=== PATIENT | male | born 1950 | race Caucasian/White ===

== ENCOUNTER → 2022-08-20 | Outpatient (CLI) | payer MEDICARE, OTHER, SELFPAY ==
[2022-08-20 17:45] LABS: CRP < 2.90 mg/L (0.0-3.0)
[2022-08-20 17:55] LABS: Vitamin B12 755 pg/mL (211-911); Vitamin D,25 Hydroxy 46.3 ng/mL
[2022-08-20 19:27] LABS: Erythrocyte Sedimentation Rate 6 mm/hr (0-20)
[2022-08-24 16:09] LABS: Albumin 3.6 g/dL (2.9-4.4); Alpha-1-Globulins 0.2 g/dL (0.0-0.4); Alpha-2-Globulins 0.7 g/dL (0.4-1.0); Cytoplasmic Ab (C-ANCA) <1:20 titer (Neg:<1:20); Gamma Globulin 1.3 g/dL (0.4-1.8); Immunoglobulin A 211 mg/dL (61-437); Immunoglobulin E 6 IU/mL (6-495); Immunoglobulin G 1146 mg/dL (603-1613); Immunoglobulin M 113 mg/dL (20-172); PROEL- TOTAL PROTEIN 6.8 g/dL (6.0-8.5)
[2022-08-24 17:07] LABS: Endomysial Antibody IgA Negative (Negative)
[2022-08-25 11:09] LABS: Beef <0.10 kU/L (Class 0); Clam <0.10 kU/L (Class 0); Codfish <0.10 kU/L (Class 0); Corn <0.10 kU/L (Class 0); Egg, White <0.10 kU/L (Class 0); Egg, Whole <0.10 kU/L (Class 0); Milk (Cow) <0.10 kU/L (Class 0); Peanut <0.10 kU/L (Class 0); Pork <0.10 kU/L (Class 0); SCALLOP <0.10 kU/L (Class 0); SESAME SEED <0.10 kU/L (Class 0); Shrimp <0.10 kU/L (Class 0); Soybean <0.10 kU/L (Class 0); Walnut, (Food) <0.10 kU/L (Class 0); Wheat <0.10 kU/L (Class 0)
[2022-08-25 11:12] LABS: Immunoglobulin A 219 mg/dL (61-437); Perinuclear Ab (P-ANCA) <1:20 titer (Neg:<1:20); t-Transglutaminase IgA <2 U/mL (0-3)
[2022-08-25 11:18] LABS: Chocolate <0.10 kU/L (Class 0)
== END | disposition home or self-care (01) ==
PROVIDERS: PCP Internal Medicine; Referring Provider Internal Medicine Gastroenterology; Visit Provider Internal Medicine Gastroenterology
DX: R19.5 Other fecal abnormalities (principal); K21.9 Gastro-esophageal reflux disease without esophagitis; E55.9 Vitamin D deficiency, unspecified
CPT/HCPCS: 36415; 82306; 82607; 82784; 82785; 83516; 84165; 85652; 86003; 86005; 86140; 86255; 86256; 86334

== ENCOUNTER → 2022-08-24 | Outpatient (CLI) | payer MEDICARE, OTHER, SELFPAY ==
[2022-08-29 14:15] LABS: Calprotectin, Stool 19 ug/g (0-120); Fats, Neutral Normal (.); Fats, Total Increased (.)
[2022-09-01 14:36] LABS: Pancreatic Elastase, Fecal 268 (>200)
== END | disposition home or self-care (01) ==
LOC: LABSPEC 12:34
PROVIDERS: PCP Internal Medicine; Referring Provider Internal Medicine Gastroenterology; Visit Provider Internal Medicine Gastroenterology
DX: R19.5 Other fecal abnormalities (principal); K58.9 Irritable bowel syndrome, unspecified; K21.9 Gastro-esophageal reflux disease without esophagitis
CPT/HCPCS: 82274; 82653; 82705; 83630; 83993; 87177; 87209; 87329; 87506

== ENCOUNTER → 2022-09-07 | Outpatient (CLI) | payer MEDICARE, OTHER, SELFPAY ==
--- NOTE | 2022-09-07 11:23 | NM_ITS ---
CLINICAL: 72-year-old male with history of gastroparesis. SEMI-SOLID PHASE 99m Tc SULFUR COLLOID GASTRIC EMPTYING STUDY COMPARISON: None available FINDINGS: The patient was administered 1.1 mCi of 99m Tc sulfur colloid mixed with oatmeal and consumed per os. Image acquisitions in the anterior-posterior projections were obtained for [dv] minutes. There is prompt visualization of the stomach. There is no gastroesophageal reflux identified. The T ? linear fit was calculated to be 31.71 minutes, (Normal: 12-56 minutes). NM/Gastric Emptying Study IMPRESSION: 1. NORMAL 99m Tc sulfur colloid semi-solid phase (oatmeal) gastric emptying imaging examination. A. There is normal and preserved semi-solid phase gastric emptying compared to normal controls. (Yaquelin et al, J Nucl Med Tech 38: 186, 2010). Electronically Signed: John Rojo, at 21:14 EDT ,
== END | disposition home or self-care (01) ==
LOC: NM 11:22
PROVIDERS: PCP Internal Medicine; Referring Provider Internal Medicine Gastroenterology; Visit Provider Internal Medicine Gastroenterology
DX: K31.84 Gastroparesis (principal); R19.5 Other fecal abnormalities; K21.9 Gastro-esophageal reflux disease without esophagitis
CPT/HCPCS: 78264; A9541

== ENCOUNTER 2023-06-16 05:52 | Day surgery (SDC) | payer MEDICARE, OTHER, SELFPAY ==
--- OUTSIDE RECORDS SUMMARY | 2023-06-16 05:56 | XMS RPT_ITS | CCD ---
Author Name Unknown Address [address] [place] [address] Organization [facility] Care Team Providers Care Lockstitch Topstitcher Name Role Phone SARINA YARBROUGH, DR ZHAO Primary Care Physician Sarina YARBROUGH, Cece Primary Care Provider SARINA YARBROUGH, DR ZHAO Primary Care Physician SARINA YARBROUGH, DR ZHAO Primary Care Physician [phone] SARINA YARBROUGH, DR ZHAO Primary Care Unavailable MARLENA YARBROUGH, DR ZENG Attending Tracee ASHER MD, DR ZHAO Primary Care Unavailable BRITTNEY GARNER Attending Unavailable SARINA YARBROUGH, DR ZHAO Primary Care Unavailable [facility] DRIVER'S LICENSE EXAMINERNASCAR DRIVER, ZARA Attending Baljit ASHER MD, DR ALYROS Primary Care Unavailable [facility] DRIVER'S LICENSE EXAMINER-NASCAR DRIVER, ZARA Attending Baljit ASHER MD, DR ZHAO Primary Care Unavailable MARLENA YARBROUGH, DR ZENG Attending Tracee ASHER MD, DR ZHAO Primary Care Unavailable MARLENA YARBROUGH, DR ZENG Attending Tracee ASHER MD, DR ALYROS Primary Care Unavailable MARLENA YARBROUGH, DR ZENG Attending Tracee ASHER MD, DR ZHAO Primary Care Unavailable BRITTNEY GARNER Attending Unavailable SARINA YARBROUGH, DR ZHAO Primary Care Unavailable BRITTNEY GARNER Attending Unavailable SARINA YARBROUGH, DR ZHAO Primary Care Unavailable MARLENA YARBROUGH, DR ZENG Attending Tracee ASHER MD, DR ZHAO Primary Care Unavailable BRITTNEY GARNER Attending Unavailable SARINA YARBROUGH, DR ZHAO Primary Care Unavailable MARLENA YARBROUGH, DR ZENG Attending Tracee ASHER MD, DR ZHAO Primary Care Unavailable MARLENA YARBROUGH, DR ZENG Attending Unavailjass ASHER MD, DR ZHAO Primary Care Unavailable JOHN YARBROUGH, BOBBY [employer] Consulting Unavailab rufina MENDIOLA MD, DR ZENG Attending Unavailjass BERGER MD, MALCOM Consulting Unavailable MARLENA YARBROUGH, DR ZENG Consulting Unavailjass ASHER MD, DR ZHAO Primary Care Unavailable MARLENA YARBROUGH, DR ZENG Attending Unavailjass ASHER MD, DR ZHAO Primary Care Unavailable BRITTNEY GARNER Attending Unavailable SARINA YARBROUGH, BUTTESS Primary Care Unavailable MARLENA YARBROUGH, DR ZENG Attending Unavailjass ASHER MD, DR ZHAO Primary Care Unavailable BRITTNEY GARNER Attending Unavailable SARINA, CECE YARBROUGH Attending Unavailable LATYVETTE, CECE YARBROUGH Admitting Unavailable LATYVETTE, CECE YARBROUGH Primary Care Unavailable LATOULian, CECE YARBROUGH Consulting Unavailable PROVIDER, UNKNOWN Consulting Unavailable PROVIDER, UNKNOWN Consulting Unavailable PROVIDER, UNKNOWN Consulting Unavailable LATOULian, CECE YARBROUGH Consulting Unavailable LATOULian, CECE YARBROUGH Attending Unavailable LATOULian, CECE YARBROUGH Admitting Unavailable LATYVETTE, CECE YARBROUGH Primary Care Unavailable PROVIDER, UNKNOWN Consulting Unavailable PROVIDER, UNKNOWN Consulting Unavailable PROVIDER, UNKNOWN Consulting Unavailable LATYVETTE, CECE YARBROUGH Consulting Unavailable LATOULian, CECE YARBROUGH Attending Unavailable LATOULian, CECE YARBROUGH Admitting Unavailable LATYVETTE, CECE YARBROUGH Primary Care Unavailable PROVIDER, UNKNOWN Consulting Unavailable PROVIDER, UNKNOWN Consulting Unavailable PROVIDER, UNKNOWN Consulting Unavailable Allergies Allergy Classification Reported Allergen(s) Allergy Type Date of Onset Reaction(s) Facility (16 sources) Sulfonamides (Antibiotic); Translations: [sulfa drugs] Drug allergy Difficulty breathing (finding), Eruption of skin (disorder), Weal (disorder) [facility] (1 source) Sulfonamides (Antibiotic) Drug Allergy 5 [facility] (13 sources) Chlorhexidine; Translations: [chlorhexidine topical] Drug Allergy Eruption of skin (disorder) [facility] (1 source) Sulfonamides (Antibiotic) Drug allergy (disorder) [facility] Repository Medications Current Medications Medication Drug Class(es) Dates Sig (Normalized) Sig (Original) amylase 814710 unt / lipase 27470 unt / protease [id number] unt delayed release oral capsule (8 sources) Start: 02-01-2023 Creon 36,000 units oral delayed release capsule 1 cap(s), Oral, TIDM, 0 Refill(s) Start Date: 02/01/23 Status: Ordered famotidine 20 mg oral tablet (13 sources) Histamine-2 Receptor Antagonist Start: 11-03-2021 famotidine 20 mg oral tablet Dose : 20 mg = 1 tab(s), Oral, qDay, PRN Indigestion Start Date: 11/03/21 Status: Ordered Fish Oils (16 sources) Start: 09-30-2020 Fish Oil 1200 mg oral capsule Dose : 1,200 mg = 1 cap(s), Oral, qDay, 0 Refill(s) Start Date: 09/30/20 Status: Ordered Completed/Discontinued Medications Medication Drug Class(es) Dates Sig (Normalized) Sig (Original) ALPRAZolam 0.25 mg oral tablet (16 sources) Benzodiazepine Start: 02-01-2023 ALPRAZolam 0.25 mg oral tablet Dose : 0.125 mg = 0.5 tab(s), Oral, BID, PRN for anxiety, 0 Refill(s), 100.4 Start Date: 02/01/23 Status: Ordered Problems Active Problems Problem Classification Problem Date Documented Date Episodic/Chronic Abdominal hernia (8 sources) Umbilical hernia; Translations: [Umbilical hernia without obstruction or gangrene] Onset: 11-20-2014 09-30-2020 Episodic Anxiety disorders (17 sources) Panic disorder; Translations: [Panic disorder [episodic paroxysmal anxiety]] Onset: 09-04-2022 09-30-2020 Chronic Cancer of prostate (16 sources) Malignant tumor of prostate; Translations: [Malignant neoplasm of prostate] Onset: 09-04-2022 11-21-2021 Chronic Disorders of lipid metabolism (19 sources) Hypertriglyceridemia; Translations: [Hyperlipidemia, unspecified] Onset: 09-04-2022 09-30-2020 Chronic Esophageal disorders (16 sources) Gastroesophageal reflux disease 09-30-2020 Chronic Essential hypertension (19 sources) Hypertensive disorder; Translations: [Essential (primary) hypertension] Onset: 09-04-2022 09-30-2020 Chronic Genitourinary symptoms and ill-defined conditions (6 sources) Urinary symptoms ; Translations: [Unspecified symptoms and signs involving the genitourinary system] Onset: 03-08-2023 03-08-2023 Episodic Inflammatory conditions of male genital organs (1 source) Orchitis and epididymitis 05-04-2023 Episodic Mood disorders (1 source) Other recurrent depressive disorders; Translations: [Other recurrent depressive disorders] Onset: 09-04-2022 Chronic Occlusion or stenosis of precerebral arteries (1 source) Occlusion and stenosis of bilateral carotid arteries; Translations: [Occlusion and stenosis of bilateral carotid arteries] Onset: 09-04-2022 Chronic Other circulatory disease (16 sources) Carotid bruit 09-30-2020 Episodic Other male genital disorders (1 source) Hemospermia 04-08-2023 Episodic Other male genital disorders (1 source) Pain in testicle 04-08-2023 Episodic Other non-traumatic joint disorders (16 sources) Polyarthropathy 09-30-2020 Chronic Other nutritional; endocrine; and metabolic disorders (16 sources) Obesity 09-30-2020 Chronic Other screening for suspected conditions (not mental disorders or infectious disease) (6 sources) Raised prostate specific antigen; Translations: [Patient encounter status] Onset: 11-20-2014 09-29-2020 Episodic Residual codes; unclassified (16 sources) Obstructive sleep apnea syndrome 09-30-2020 Chronic Residual codes; unclassified (1 source) Obstructive sleep apnea (adult) (pediatric); Translations: [Obstructive sleep apnea (adult) (pediatric)] Onset: 09-04-2022 Chronic Residual codes; unclassified (16 sources) Insomnia 09-30-2020 Episodic Past or Other Problems Problem Classification Problem Date Documented Da te Episodic/Chronic Heart valve disorders (17 sources) Cardiac murmur, intensity grade I/; Translations: [Cardiac murmur, unspecified] Onset: 09-04-2022 09-30-2020 Episodic Results Test Name Value Interpretation Reference Range Facil ity Vital Signs Date Time Vital Sign Value Performing Clinician Faci lity 02-10-2023 18:25-0400 Body temperature 96.26 [degF] DR KARRI MENDIOLA MD [facility] 02-10-2023 18:25-0400 Diastolic Blood Pressure Non-Invasive [address] KARRI MENDIOLA MD [facility] 02-10-2023 18:25-0400 Heart rate 86 /min DR KARRI MENDIOLA MD [facility] 02-10-2023 18:25-0400 Respiratory rate 16 /min DR KARRI MENDIOLA MD [facility] 02-10-2023 18:25-0400 Systolic Blood Pressure Non-Invasive [address] KARRI MENDIOLA MD [facility] 02-10-2023 17:10-0400 Body temperature 97.52 [degF] DR KARRI MENDIOLA MD [facility] 02-10-2023 17:10-0400 Diastolic Blood Pressure Non-Invasive [address] KARRI MENDIOLA MD [facility] 02-10-2023 17:10-0400 Heart rate 91 /min DR KARRI MENDIOLA MD [facility] 02-10-2023 17:10-0400 Respiratory rate 16 /min DR KARRI MENDIOLA MD [facility] 02-10-2023 17:10-0400 Systolic Blood Pressure Non-Invasive [address] KARRI MENDIOLA MD [facility] 02-10-2023 17:07-0400 Body temperature 97.16 [degF] DR KARRI MENDIOLA MD [facility] 02-10-2023 17:07-0400 Diastolic Blood Pressure Non-Invasive [address] KARRI MENDIOLA MD [facility] 02-10-2023 17:07-0400 Heart rate 93 /min DR KARRI MENDIOLA MD [facility] 02-10-2023 17:07-0400 Mean blood pressure 91 mm[Hg] DR KARRI MENDIOLA MD [facility] 02-10-2023 17:07-0400 Respiratory rate 16 /min DR KARRI MENDIOLA MD [facility] 02-10-2023 17:07-0400 Systolic Blood Pressure Non-Invasive [address] KARRI MENDIOLA MD [facility] 02-10-2023 16:49-0400 Heart rate 89 /min DR KARRI MENDIOLA MD [facility] 02-10-2023 16:49-0400 Mean blood pressure 82 mm[Hg] DR KARRI MENDIOLA MD [facility] 02-10-2023 16:40-0400 Body temperature 97.34 [degF] DR KARRI MENDIOLA MD [facility] 02-10-2023 16:40-0400 Heart rate 83 /min DR KARRI MENDIOLA MD [facility] 02-10-2023 16:40-0400 Mean blood pressure 75 mm[Hg] DR KARRI MENDIOLA MD [facility] 02-10-2023 16:35-0400 Respiratory Rate - Anes 25 br/min DR KARRI MENDIOLA MD [facility] 02-10-2023 16:30-0400 Body temperature 98.13 [degF] DR KARRI MENDIOLA MD [facility] 02-10-2023 16:30-0400 Respiratory Rate - Anes 19 br/min DR KARRI MENDIOLA MD [facility] 02-10-2023 16:25-0400 Body temperature 98.08 [degF] DR KARRI MENDIOLA MD [facility] 02-10-2023 16:25-0400 Respiratory Rate - Anes 13 br/min DR KARRI MENDIOLA MD [facility] 02-10-2023 16:20-0400 Body temperature 97.66 [degF] DR KARRI MENDIOLA MD [facility] 02-10-2023 11:35-0400 Body height 177.[address] KARRI MENDIOLA MD [facility] 02-10-2023 11:35-0400 Body weight 97.[address] KARRI MENDIOLA MD [facility] 02-10-2023 11:35-0400 Heart rate 72 /min DR KARRI MENDIOLA MD [facility] 02-01-2023 11:51-[address] KARRI MENDIOLA MD [facility] 02-01-2023 11:51-[address] KARRI Workman MD [facility] 02-01-2023 11:51-0400 Diastolic Blood Pressure Non-Invasive [address] KARRI MENDIOLA MD [facility] 02-01-2023 11:51-0400 Systolic Blood Pressure Non-Invasive [address] KARRI MENDIOLA MD [facility] 02-01-2023 11:27-[address] KARRI MENDIOLA MD [facility] 02-01-2023 11:27-[address] KARRI Workman MD [facility] 02-01-2023 11:27-0400 Body height [address] KARRI MENDIOLA MD [facility] 02-01-2023 11:27-0400 Body temperature 98.06 [degF] DR KARRI MENDIOLA MD [facility] 02-01-2023 11:27-0400 Body weight 100.[address] KARRI MENDIOLA MD [facility] 02-01-2023 11:27-0400 Diastolic Blood Pressure Non-Invasive [address] KARRI MENDIOLA MD [facility] 02-01-2023 11:27-0400 Heart rate 61 /min DR KARRI MENDIOLA MD [facility] 02-01-2023 11:27-0400 Systolic Blood Pressure Non-Invasive [address] KARRI MENDIOLA MD [facility] 11-13-2021 13:50-0400 Body temperature 97.7 [degF] DR KARRI MENDIOLA MD [facility] 11-13-2021 13:50-0400 Diastolic blood pressure 60 mm[Hg] DR KARRI MENDIOLA MD [facility] 11-13-2021 13:50-0400 Heart rate 78 /min DR KARRI MENDIOLA MD [facility] 11-13-2021 13:50-0400 Respiratory rate 16 /min DR KARRI MENDIOLA MD [facility] 11-13-2021 13:50-0400 Systolic blood pressure 130 mm[Hg] DR KARRI MENDIOLA MD [facility] 11-13-2021 12:30-0400 Body temperature 96.44 [degF] DR KRARI MENDIOLA MD [facility] 11-13-2021 12:30-0400 Diastolic blood pressure 75 mm[Hg] DR KARRI MENDIOLA MD [facility] 11-13-2021 12:30-0400 Heart rate 79 /min DR KARRI MENDIOLA MD [facility] 11-13-2021 12:30-0400 Respiratory rate 16 /min DR KARRI MENDIOLA MD [facility] 11-13-2021 12:30-0400 Systolic blood pressure 130 mm[Hg] DR AKRRI MENDIOLA MD [facility] 11-13-2021 12:15-0400 Respiratory rate 16 /min DR KARRI MENDIOLA MD [facility] 11-13-2021 12:11-0400 Diastolic Blood Pressure NBP [address] KARRI MENDIOLA MD [facility] 11-13-2021 12:11-0400 Heart rate 81 /min DR KARRI MENDIOLA MD [facility] 11-13-2021 12:11-0400 Mean blood pressure 76 mm[Hg] DR KARRI MENDIOLA MD [facility] 11-13-2021 12:11-0400 Systolic Blood Pressure NBP [address] KARRI MENDIOLA MD [facility] 11-13-2021 11:56-0400 Diastolic Blood Pressure NBP [address] KARRI MENDIOLA MD [facility] 11-13-2021 11:56-0400 Heart rate 76 /min DR KARRI MENDIOLA MD [facility] 11-13-2021 11:56-0400 Mean blood pressure 79 mm[Hg] DR KARRI MENDIOLA MD [facility] 11-13-2021 11:56-0400 Systolic Blood Pressure NBP [address] KARRI MENDIOLA MD [facility] 11-13-2021 11:41-0400 Body temperature 96.8 [degF] DR KARRI MENDIOLA MD [facility] 11-13-2021 11:41-0400 Diastolic Blood Pressure NBP [address] KARRI MENDIOLA MD [facility] 11-13-2021 11:41-0400 Heart rate 75 /min DR KARRI MENDIOLA MD [facility] 11-13-2021 11:41-0400 Mean blood pressure 73 mm[Hg] DR KARRI MENDIOLA MD [facility] 11-13-2021 11:41-0400 Systolic Blood Pressure NBP [address] KARRI MENDIOLA MD [facility] 11-13-2021 11:30-0400 Body temperature 97.03 [degF] DR KARRI MENDIOLA MD [facility] 11-13-2021 11:25-0400 Body temperature 97.09 [degF] DR KARRI MENDIOLA MD [facility] 11-13-2021 11:20-0400 Body temperature 97.12 [degF] DR KARRI MENDIOLA MD [facility] 11-13-2021 09:25-0400 Body height 177.[address] KARRI MENDIOLA MD [facility] 11-13-2021 09:25-0400 Body temperature 96.98 [degF] DR KARRI MENDIOLA MD [facility] 11-13-2021 09:25-0400 Body weight 98.[address] KARRI MENDIOLA MD [facility] 11-13-2021 09:25-0400 Diastolic blood pressure 86 mm[Hg] DR KARRI MENDIOLA MD [facility] 11-13-2021 09:25-0400 Heart rate 74 /min DR KARRI MENDIOLA MD [facility] 11-13-2021 09:25-0400 Mean blood pressure 111 mm[Hg] DR KARRI MENDIOLA MD [facility] 11-13-2021 09:25-0400 Systolic blood pressure 160 mm[Hg] DR KARRI MENDIOLA MD [facility] 11-03-2021 09:33-0400 Body height 176.[address] KARRI MENDIOLA MD [facility] 11-03-2021 09:33-0400 Body temperature 97.7 [degF] DR KARRI MENDIOLA MD [facility] 11-03-2021 09:33-0400 Body weight 102.[address] KARRI MENDIOLA MD [facility] 11-03-2021 09:33-0400 diastolic 80 mm[Hg] DR KARRI MENDIOLA MD [facility] 11-03-2021 09:33-0400 Heart rate 68 /min DR KARRI MENDIOLA MD [facility] 11-03-2021 09:33-0400 systolic 154 mm[Hg] DR KARRI MENDIOLA MD [facility] Encounters Encounter Date Encounter Type Care Provider Facility Start: 05-19-2023 End: 05-19-2023 ambulatory CECE ASHER [facility] Start: 05-04-2023 End: 05-05-[address] CECE ASHER MD Facility:A Start: 05-04-2023 End: 05-04-2023 Patient encounter procedure BRITTNEY GARNER DRIVER'S LICENSE EXAMINER-NASCAR DRIVER [facility] Start: 04-13-[address] CECE ASHER MD Fac ility:B Start: 04-08-2023 End: 04-13-[address] CECE ASHER MD Facility:A Start: 04-02-2023 End: 04-03-[address] CECE ASHER MD Facility:A Start: 03-31-2023 End: 04-01-[address] CECE ASHER MD Facility:B Start: 03-31-2023 End: 03-31-[address] KARRI MENDIOLA MD [facility] Start: 03-12-2023 End: 03-13-[address] CECE ASHER MD Facility:A Start: 03-12-2023 End: 03-12-[address] KARRI MENDIOLA MD [facility] Start: 03-08-2023 End: 03-13-[address] CECE ASHER MD Facility:A Start: 03-07-2023 End: 03-08-[address] CECE ASHER MD Facility:A Start: 03-07-2023 End: 03-08-[address] KARRI MENDIOLA MD [facility] Start: 02-27-2023 End: 02-28-[address] CECE ASHER MD Facility:A Start: 02-19-2023 End: 02-20-[address] CECE ASHER MD Facility:A Start: 02-19-2023 End: 02-19-[address] KARRI MENDIOLA MD [facility] Start: 02-10-2023 End: 02-10-[address] CECE ASHER MD Facility:A Start: 02-10-2023 End: 02-10-[address] KARRI MENDIOLA MD [facility] Start: 02-01-2023 End: 02-06-[address] CECE ASHER MD Facility:A Start: 02-01-2023 End: 02-02-[address] CECE ASHER MD Facility:A Start: 02-01-2023 End: 02-01-[address] KARRI MENDIOLA MD [facility] Start: 02-01-2023 End: 02-01-2023 [facility] Start: 12-30-2022 End: 12-30-2022 ambulatory CECE YARBROUGH [facility] Start: 11-09-2022 End: 11-10-[address] CECE ASHER MD Facility:A Start: 09-04-2022 End: 09-04-2022 ambulatory CECE YARBROUGH [facility] Start: 08-10-2022 End: 08-11-[address] CECE ASHER MD Facility:A Start: 03-02-2022 End: 03-02-[address] KARRI MENDIOLA MD [facility] Start: 02-21-2022 End: 02-21-[address] KARRI MENDIOLA MD [facility] Start: 11-21-2021 End: 11-21-[address] KARRI MENDIOLA MD [facility] Start: 11-13-2021 End: 11-13-[address] KARRI MENDIOLA MD [facility] Start: 11-03-2021 End: 11-03-[address] KARRI MENDIOLA MD [facility] Start: 09-22-2021 End: 09-22-2021 Subsequent hospital visit by physician Mri [facility] (I-Stat/Lg Bore/3t) [facility] Procedures Date Procedure Procedure Detail Performing Clinician Start: 03-15-2023 Basal cell carcinoma (morphologic abnormality) BRITTNEY GARNER DRIVER'S LICENSE EXAMINER-NASCAR DRIVER Start: 11-13-2021 MRI-US fusion guided transperineal biopsy of prostate DR KARRI MENDIOLA MD Start: 01-22-[address] CALDERON MENDIOLA MD Plan of Treatment Date Care Activity Detail Author Start: 2021 ADVANCE DIRECTIVE DISCUSSION ADVANCE DIRECTIVE DISCUSSION [facility] Start: 2017 PNEUMOVAX AGE 65 AND OVER WITH 5YR LOOKBACK (#1) PNEUMOVAX AGE 65 AND OVER WITH 5YR LOOKBACK (#1) [facility] Start: 2002 SHINGRIX VACCINE (1 of 2) SHINGRIX V ACCINE (1 of 2) [facility] Start: 1997 COLOGUARD (FIT-DNA) COLOGUARD (FIT-D NA) [facility] Start: 1997 Colonoscopy COLONOSCOPY [facility] Start: 1997 COLORECTAL CANCER SCREENING COLORECTAL CANCER SCREENING [facility] Start: [address] COLONOGRAPHY [facility] Start: 1997 DIABETES SCREEN DIABETES SCREEN [facility] Start: 1997 FECAL OCCULT BLOOD FECAL OCCULT BLOO D [facility] Start: 1997 SIG[facility]OSCOPY [facility] Start: 1987 LIPID SCREEN LIPID SCREEN [facility] Start: 1971 Urine microalbumin profile DTAP,TDAP ,TD (1 - Tdap) [facility] Start: 1970 HEPATITIS C SCREENING HEPATITIS C SC REENING [facility] Start: 1964 [facility]EN[facility] Immunizations Immunization Date Immunization Notes Care Provider Fa wilma 09-06-2021 SARS-CoV-2 (COVID-19 ) mRNA-[address] KARRI MENDIOLA MD [facility] 03-14-2021 SARS-CoV-2 (COVID-19 ) mRNA-[address] KARRI MENDIOLA MD [facility] 02-24-2021 influenza virus vacc ine, unspecified formulation DR KARRI MENDIOLA MD [facility] 08-01-2020 SARS-CoV-2 (COVID-19 ) mRNA-[address] KARRI MENDIOLA MD [facility] 07-04-2020 SARS-CoV-2 (COVID-19 ) mRNA-[address] KARRI MENDIOLA MD [facility] 03-10-2019 influenza virus vacc ine, unspecified formulation DR KARRI MENDIOLA MD [facility] 11-21-2018 pneumococcal polysaccharide vaccine, [address] KARRI MENDIOLA MD [facility] 03-14-2018 influenza virus vacc ine, unspecified formulation DR KARRI MENDIOLA MD [facility] 02-21-2018 influenza virus vacc ine, unspecified formulation DR KARRI MENDIOLA MD [facility] 10-25-2017 pneumococcal conjuga te vaccine, [address] KARRI MENDIOLA MD [facility] 04-29-2016 influenza virus vacc ine, unspecified formulation DR KARRI MENDIOLA MD [facility] Payers Date Payer Category Payer Medicare [id number] 2022 Unknown [id number] 2021 Unknown MMO MMO MEDICARE SUPPLEMENT [id number] 2021-Present [phone] [address] [place] [address] Indemnity [id number] 2017 Medicare MEDICARE MEDICAR E A AND B [id number] 2017-Present [phone] [address] [address] [place] [address] Medicare [id number] 1952 Unknown [id number] 1952 Unknown [id number] [id number]7 1952 Unknown [id number] 2.16.840.1.952903.3.579.2.627 1952 Unknown [id number] 2.16.840.1.695597.3.579.2.7 1952 Unknown [id number] 2.16.840.1.794071.3.579.2. 1952 Unknown [id number] 2.16.840.1.825086.3.579.2. 1952 Unknown [id number] 2.16.840.1.884535.3.579.2. 1952 Unknown [id number] 2.16.840.1.046524.3.579.2. 1952 Unknown [id number] 2.16.840.1.626885.3.579.2. 1952 Unknown [id number] 2.16.840.1.585263.3.579.2. 1952 Unknown [id number] 2.16.840.1.402089.3.579.2. 1952 Unknown [id number] 2.16.840.1.825059.3.579.2. 1952 Unknown [id number] 2.16.840.1.185501.3.579.2. 1952 Unknown [id number] 2.16.840.1.502433.3.579.2. 1952 Unknown [id number] 2.16.840.1.929404.3.579.2. 1952 Unknown [id number] 2.16.840.1.395703.3.579.2. 1952 Unknown [id number] 1950 Unknown [id number] 1950 Unknown [id number] 1950 Unknown [id number] 1950 Unknown [id number] Social History Date Type Detail Facility Start: 11-20-2014 End: 09-30-2020 Never smoked tobacco (finding) [facility] Sex Assigned At [facility] Start: 11-20-2014 Alcohol intake Current drinke r of alcohol (finding) [facility] Start: 11-20-2014 History SDOH Alcohol Comment One beer per month/Social [facility] Start: 1950 Sex Assigned At Not on file C [facility] Start: 09-12-2021 End: 09-22-2021 Exposure to SARS-CoV-2 (event) Not sure [facility] Functional Status Date Assessment Result Facility 02-10-2023 Functional Status Awake, Up ad basilia, Up to bathroom [facility] 02-10-2023 Functional Status ice chips and sips take n [facility] 02-10-2023 Functional Status [facility] 02-01-2023 Functional Status Sensory Deficits None [facility] 11-13-2021 Functional Status Bathroom privileges [facility] 11-13-2021 Functional Status [facility] 11-13-2021 [facility] Functional Status Sensory Deficits None A [facility] Mental Status Date Assessment Result Facility 02-10-2023 Mental Status Orientation Oriented x 4 [facility] 02-10-2023 Mental Status [facility] 02-10-2023 Mental Status [facility] 11-13-2021 Mental Status Orientation Oriented x 4 [facility] 11-13-2021 Mental Status [facility] 11-13-2021 Mental Status Orientation Asse ssment Oriented x 4 [facility] Clinical Notes 12-31-2020 to 04-10-2023 LaboratoryRadiologyJoseRT Roshan(R) - 09/22/2021 9:00 AM EDTLaboratoryLaboratoryLaboratoryLaboratoryLaboratoryLaboratoryRadiologyLaborato ryRadiologyLaboratoryLaboratoryRadiology Note Date & Type Note Facility 04-10-2023 Note . MICRO - Microbiology PROCEDURE: Urine Culture [*1] SOURCE: Urine, Clean Catch BODY SITE: COLLECTED DATE/TIME: 04/08/2023 14:36 EST RECEIVED DATE/TIME: 04/08/2023 15:13 EST START DATE/TIME: 04/08/2023 15:13 EST FREE TEXT SOURCE: FINAL REPORTS Final Report [] Verified Date/Time/Personnel: 04/10/2023 07:39 EST No growth at 48 hours. PRELIMINARY REPORTS Preliminary Report [] Verified Date/Time/Personnel: 04/09/2023 11:17 EST No growth to date Performing Locations *1: This test was performed at: [address], [facility] , [facility] ([place]) 03-31-2023 Note ORIGINAL EXAMINATION: CT OF THE HEAD WITHOUT CONTRAST 03/31/2023 3:30 pm TECHNIQUE: CT of the head was performed without the administration of intravenous contrast. Automated exposure control, iterative reconstruction, and/or weight based adjustment of the mA/kV was utilized to reduce the radiation dose to as low as reasonably achievable. COMPARISON: Bone scan, 03/12/2023. 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 Current prostate CA diagnosis. FINDINGS: BRAIN/VENTRICLES: There is no acute intracranial hemorrhage, mass effect or midline shift. No abnormal extra-axial fluid collection. The knight-white differentiation is maintained without evidence of an acute infarct. There is no evidence of hydrocephalus. ORBITS: The visualized portion of the orbits demonstrate no acute abnormality. SINUSES: The visualized paranasal sinuses and mastoid air cells demonstrate no acute abnormality. SOFT TISSUES/SKULL: No acute abnormality of the visualized skull or soft tissues. No skull lesion is identified. Specifically, the left calvarium appears normal with no lytic or sclerotic lesions identified. IMPRESSION: No acute intracranial abnormality. No suspicious lytic or sclerotic bone lesions are identified in the left calvarium that correspond to the abnormal uptake seen on the bone scan. Interpreted by: Juan Bower MD Preliminary Report By: Juan Bower MD Electronically signed By Juan Bower MD Dictated Date: 03/31/2023 6:03:27 PM Prelim Date: 03/31/2023 6:08:39 PM Sign Date: 03/31/2023 6:08:39 PM Ordering Provider: KARRI MENDIOLA [facility] 03-12-2023 Note ORIGINAL EXAMINATION: WHOLE BODY BONE SCAN03/12/2023 12:55 pm TECHNIQUE: The patient received an intravenous injection of 25.1 mCi of Tc-99m MDP. Anterior and posterior images of the skeleton from skull vertex to feet were then acquired. Additional regional skeletal images were also obtained. COMPARISON: March 07, 2023 HISTORY: ORDERING SYSTEM PROVIDED HISTORY: Reason for Exam: initial staging of GG3 prostate cancer FINDINGS: There are no suspicious foci to suggest widespread osseous metastatic disease. There is however, a small nonspecific focus within the left frontoparietal calvarium. No correlative imaging available. There are areas of uptake in an arthritic pattern, including the shoulders, sternoclavicular joints, hips, knees, and spine. Activity in the bilateral kidneys and the urinary bladder represent normal route of radiopharmaceutical excretion. The soft tissue distribution of radiotracer activity is within normal limits. IMPRESSION: No widespread evidence of active osseous metastatic disease. Nonspecific left calvarial focus, uncertain in etiology. Suggest correlation with head CT or PSMA PET for further evaluation. Interpreted by: Ko Kiser DO Preliminary Report By: Ko Kiser DO Electronically signed By Ko Kiser DO Dictated Date: 03/12/2023 4:28:33 PM Prelim Date: 03/12/2023 4:32:48 PM Sign Date: 03/12/2023 4:32:48 PM Ordering Provider: KARRI MENDIOLA [facility] 03-10-2023 Note . MICRO - Microbiology PROCEDURE: Urine Culture [*1] SOURCE: Urine, Clean Catch BODY SITE: COLLECTED DATE/TIME: 03/08/2023 14:36 EDT RECEIVED DATE/TIME: 03/08/2023 20:13 EDT START DATE/TIME: 03/08/2023 20:14 EDT FREE TEXT SOURCE: FINAL REPORTS Final Report [] Verified Date/Time/Personnel: 03/10/2023 07:31 EDT No growth at 48 hours. PRELIMINARY REPORTS Preliminary Report [] Verified Date/Time/Personnel: 03/09/2023 09:09 EDT No growth to date Performing Locations *1: This test was performed at: [facility], [address] [place] [address], [facility] , [facility] ([place]) 02-19-2023 Evaluation + Plan note Future Scheduled TestsTestosterone Level Total 02/19/23NM Bone Imaging Whole Body 02/19/23CT Abdomen and Pelvis w/o contrast 02/19/23 [facility] 02-10-2023 Anesthesiology Consult note Patient: AMINATA GAY Age: 72 years Sex: Male : 1950 Associated Diagnoses: None Author: MALCOM BERGER MD Postoperative Information Post Operative Info: Post op day: Post Anesthesia Care Unit. Patient location: PACU. Assessment Postanesthesia assessment Vitals: Vital signs from flowsheet : Vital Signs 02/10/2023 18:25 EDT Temperature Tympanic 35.7 DegC LOW Peripheral Pulse Rate 86 bpm Respiratory Rate 16 br/min Systolic Blood Pressure Non-Invasive 157 mmHg HI Diastolic Blood Pressure Non-Invasive 85 mmHg 02/10/2023 17:10 EDT Temperature Temporal Artery 36.4 DegC Apical Heart Rate 91 bpm Respiratory Rate 16 br/min Systolic Blood Pressure Non-Invasive 148 mmHg HI Diastolic Blood Pressure Non-Invasive 71 mmHg 02/10/2023 17:07 EDT Temperature Temporal Artery 36.2 DegC Heart Rate Monitored 93 bpm Respiratory Rate 16 br/min Systolic Blood Pressure Non-Invasive 138 mmHg Diastolic Blood Pressure Non-Invasive 70 mmHg Mean Arterial Pressure (NBP) 91 mmHg 02/10/2023 16:49 EDT Heart Rate Monitored 89 bpm Respiratory Rate 16 br/min Systolic Blood Pressure Non-Invasive 122 mmHg Diastolic Blood Pressure Non-Invasive 65 mmHg Mean Arterial Pressure (NBP) 82 mmHg 02/10/2023 16:40 EDT Temperature Temporal Artery 36.3 DegC Heart Rate Monitored 83 bpm Respiratory Rate 16 br/min Systolic Blood Pressure Non-Invasive 116 mmHg Diastolic Blood Pressure Non-Invasive 59 mmHg LOW Mean Arterial Pressure (NBP) 75 mmHg 02/10/2023 16:36 EDT Systolic Blood Pressure Non-Invasive 96 mmHg mmHg Diastolic Blood Pressure Non-Invasive 57 mmHg mmHg 02/10/2023 16:35 EDT Heart Rate Monitored 75 bpm bpm Respiratory Rate - Anes 25 br/min br/min 02/10/2023 16:33 EDT Systolic Blood Pressure Non-Invasive 113 mmHg mmHg Diastolic Blood Pressure Non-Invasive 56 mmHg mmHg 02/10/2023 16:30 EDT Temperature (Route Not Specified) 36.74 DegC DegC Heart Rate Monitored 69 bpm bpm Respiratory Rate - Anes 19 br/min br/min 02/10/2023 16:29 EDT Systolic Blood Pressure Non-Invasive 107 mmHg mmHg Diastolic Blood Pressure Non-Invasive 59 mmHg mmHg 02/10/2023 16:27 EDT Systolic Blood Pressure Non-Invasive 109 mmHg mmHg Diastolic Blood Pressure Non-Invasive 56 mmHg mmHg 02/10/2023 16:25 EDT Temperature (Route Not Specified) 36.71 DegC DegC Heart Rate Monitored 73 bpm bpm Respiratory Rate - Anes 13 br/min br/min 02/10/2023 16:24 EDT Systolic Blood Pressure Non-Invasive 117 mmHg mmHg Diastolic Blood Pressure Non-Invasive 60 mmHg mmHg 02/10/2023 16:21 EDT Systolic Blood Pressure Non-Invasive 123 mmHg mmHg Diastolic Blood Pressure Non-Invasive 66 mmHg mmHg 02/10/2023 16:20 EDT Temperature (Route Not Specified) 36.48 DegC DegC Heart Rate Monitored 79 bpm bpm Respiratory Rate - Anes 21 br/min br/min 02/10/2023 16:18 EDT Systolic Blood Pressure Non-Invasive 149 mmHg mmHg Diastolic Blood Pressure Non-Invasive 74 mmHg mmHg 02/10/2023 11:35 EDT Temperature Temporal Artery 36.2 DegC Apical Heart Rate 72 bpm Respiratory Rate 16 br/min Systolic Blood Pressure Non-Invasive 155 mmHg HI Diastolic Blood Pressure Non-Invasive 79 mmHg , Oxygen Therapy : Oxygen Therapy & Oxygenation Information 02/10/2023 18:25 EDT Oxygen Saturation 98 % 02/10/2023 17:10 EDT Oxygen Therapy Room air Oxygen Saturation 98 % 02/10/2023 17:07 EDT Oxygen Therapy Room air Oxygen Saturation 95 % 02/10/2023 16:49 EDT Oxygen Therapy Room air Oxygen Saturation 96 % 02/10/2023 16:40 EDT Oxygen Therapy Simple mask Oxygen Saturation 96 % Oxygen Flow Rate 5 02/10/2023 16:35 EDT Oxygen Saturation 98 % % 02/10/2023 16:30 EDT Oxygen Saturation 99 % % 02/10/2023 16:25 EDT Oxygen Saturation 98 % % 02/10/2023 16:20 EDT Oxygen Saturation 99 % % 02/10/2023 11:35 EDT Oxygen Therapy Room air Oxygen Saturation 97 % . Mental status: at preoperative baseline. Respiratory function: respirations are non-labored, Stable. Respiratory support: none. CV function: Stable. Cardiovascular support: none. Pain: Satisfactory. Nausea status: Satisfactory. Postoperative hydration status: within normal limits. Notes: Patient is sufficiently recovered from anesthesia to participate in the evaluation. No follow-up care needed. No complications post-anesthesia.. Digitally Signed by MALCOM BERGER MD on 02/10/2023 07:46 PM [facility] 02-10-2023 Hospital Discharge instructions Patient Education 02/10/2023 17:43:15 1-[facility] Discharge Instructions Template (02/2018) (CUSTOM) [facility] SAME DAY SURGERY DISCHARGE INSTRUCTIONS PLEASE FOLLOW THE INSTRUCTIONS BELOW MARKED WITH AN X: _x__ Regular Diet: Start with clear liquids, then soup and crackers and gradually add other foods. _x__ Drink extra fluids. ___ Special Diet Instructions: ___ ACTIVITY: _x__ Avoid stress to suture line. Since you have had an anesthetic, it would be advisable not to drive, drink alcohol, or make major decisions over the next 24 hours. You may require more rest tonight and tomorrow. ___ May resume regular activity as tolerated. ___ Restrict activity as follows: ___ ___ Walk Only ___ ___ Do not go up and down stairs. ___ Do not ride in car until ___ ___ Do not drive car. ___ Do not have sexual intercourse. _x__ No heavy lifting, pushing or straining. _x__ Other: _Follow Dr Mendiola's written and verbal discharge instructions.__ BATHING/SHOWERING: ___ Sponge bathe until office visit. ___ Sitting in tub of warm water may relieve discomfort. ___ May tub bathe _x__ May shower in 24 hours ___ On day after surgery sit in tub of warm water to soak off dressing. DRESSING: _x__ Keep operative area dry and clean. _x__ Check the operative area for signs of bleeding. Apply pressure to the bleeding site if necessary and call your physician. ___ Change dressing as necessary using sterile dressing material or bandaid. ___ Reinforce dressing as necessary. ___ Change and care for wound as follows: ___ ___ Wear bra for ___ days following breast surgery for comfort. ___ Change drip pad as needed. ___ Wear scrotal support for comfort. WATCH FOR SIGNS OF INFECTION: (Usually appears 36-48 hours after surgery) Increased temperature (101 degrees Fahrenheit or higher) Redness or swelling Increased pain Foul odor or drainage. If you have any questions, please call your doctor at the number listed on your follow up instructions. Follow all instructions given to you by your physician. Please complete and return the survey you will be receiving in the mail to help us better serve our patients. Form: [id number]) R: 08/3002/10/2023 17:42:23 1-[facility] Prostate Biopsy [facility] Instructions(03/2022) (CUSTOM) DESCRIPTION OF PROSTATE ULTRASOUND AND TRANSPERINEAL BIOPSY: Ultrasound uses harmless sound waves to give us pictures of the prostate and allows us to accurately guide a biopsy needle to areas of the concern. Indications for prostatic biopsy include suspicion of cancer either by suspicious finger exam of the prostate or by elevation of a prostatic cancer screening blood test (PSA). The procedure is done in the operating room with general anesthesia. Initially, a complete finger examination is done. Next the ultrasound probe, finger-like in size and shape, is placed into the rectum. With slight movement of the probe many different views are obtained. A needle is inserted into the prostate through the skin below the scrotum to take biopsies. 12 or more biopsies are usually taken from the insertion sites. The entire exam takes 20-30 minutes. You may have some soreness around the rectum and biopsy area for several hour. You may also note blood in the urine and stool for a few days and in the semen for up to a month. We will not have the biopsies results for one to two weeks, so be patient. POSSIBLE RISKS OF PROSTATE ULTRASOUND AND TRANSPERINEAL BIOPSY: Blood may be noted in the stool and urine for a few days and in the semen for up to a month. Infection of the prostate or in the urine can occur even with the antibiotic preparation. You should call if you develop fever, chills, severe pain or have continuous or significant bleeding PREPARATION FOR PROSTATE ULTRASOUND AND TRANSPERINEAL BIOPSY: 1.No dietary restrictions on the day before the procedure. Nothing by mouth after midnight. 2.Medications will be reviewed by [facility] pre-test clinic and you will be notified either at pre-test visit or by telephone if any medications need to be taken the morning of surgery. 3.Blood thinners to be held 7 days prior to procedure. A list of medications that need to be held will be given. 4.A Fleets enema should be administered 2 hours prior to arrival to hospital. 5.You will be given antibiotics while in the operating room. FOLLOW-UP INSTRUCTIONS: Follow-up instructions will be given the day of your procedure. Follow Up Care 11/10/2022 09:38:33 With:KARRI MENDIOLA MD, [facility], Urology Service Address: [address] [place], [place] [id number]- When: Unknown [facility] 02-10-2023 Summary of episode note Discharge Instructions Thank you for allowing [facility] to assist you with your healthcare needs. The following is important discharge information regarding your hospital visit. Your Care Team CECE ASHER MD Your Diagnosis Prostate cancer; [place] 6 (GG1) cT1c dx October 2021; iPSA 5.45; 32mL prostate; Oncotype GPS 24 What to do next Instructions From Your Doctor Expect blood in the urine and blood in the semen. If unable to urinate, please call the [facility] office and/or go to the main hospital emergency department. Scheduled Follow-Up Appointments Appointment Type When With Where Contact InformationURO OV Talk 02/19/2023 03:10 PM EDT KARRI MENDIOLA [facility] Follow Up Appointments Follow Up with KARRI MENDIOLA MD, [facility], Urology Service When Where: [address] [facility] [address] [place] [address]- The Following Activity and Diet Have Been Ordered for You Discharge Activity - Ordered -- Lifting Restricted less than 10 pounds, 2 days, 02/10/23 17:41:00 EDT Discharge Driving Restrictions - Ordered -- No driving until pain-free, 02/10/23 17:41:00 EDT Discharge Diet - Ordered -- No changes were made to your diet during your hospital stay. Please resume your pre hospitalization diet on discharge., 02/10/23 17:41:00 EDT The Following Equipment Has Been Ordered for You Discharge Home Equipment Discharge Wound Care - Ordered -- Expect some blood at the perineum. You may shower 24 hours after the biopsy., 02/10/23 17:41:00 EDT The Following Treatments Have Been Ordered for You Discharge Labs No qualifying data available. Discharge Radiology No qualifying data available. Other Therapies No qualifying data available. Post Acute Orders No qualifying data available. Someone Will Contact You Regarding These Home Health Referrals No home referrals have been ordered for you. No one will call you. Allergies chlorhexidine topical (Rash) sulfa (Difficulty breathing, Rash, Hives) Medications Please ask your primary doctor or pharmacist before taking any other medication not listed, including over the counter drugs, herbal medications, vitamins and or supplements as they may interact with your home medications. What How Much When Instructions Last Dose Unchanged ALPRAZolam (ALPRAZolam 0.25 mg oral tablet) 0.5 tab(s) by mouth Two (2) times a day as needed for for anxiety Unchanged ascorbic acid (Vitamin C 1000 mg oral tablet) 1 tab(s) by mouth Once a day Unchanged cholecalciferol (Vitamin D3 50 mcg (2000 intl units) oral tablet) 2 tab(s) by mouth Every day Unchanged famotidine (famotidine 20 mg oral tablet) 1 tab(s) by mouth Once a day as needed for Indigestion Unchanged losartan (losartan 25 mg oral tablet) 1 tab(s) by mouth Daily at 12 noon Unchanged metoprolol (Metoprolol Tartrate 50 mg oral tablet) 1 tab(s) by mouth Two (2) times a day Unchanged metroNIDAZOLE topical (metroNIDAZOLE 0.75% topical gel) 1 application Topical Two (2) times a day as needed for ROSACEA Unchanged Misc Medication (COQ10 200MG) 1 cap by mouth Once a day Unchanged multivitamin (Vitamin B Complex oral capsule) 1 cap by mouth Every day Unchanged omega-3 polyunsaturated fatty acids (Fish Oil 1200 mg oral capsule) 1 cap by mouth Once a day Unchanged pancrelipase (Creon 36,000 units oral delayed release capsule) 1 cap by mouth Three (3) times a day with meals Please take this list to your next doctor s visit. Bring all medications you take, including over the counter medications, herbals and other supplements with you to your doctor s visit. Patients and families are reminded to discard old lists and to update any records with all medication providers or retail pharmacies. Education Materials [facility] SAME DAY SURGERY DISCHARGE INSTRUCTIONS PLEASE FOLLOW THE INSTRUCTIONS BELOW MARKED WITH AN X: _x__ Regular Diet: Start with clear liquids, then soup and crackers and gradually add other foods. _x__ Drink extra fluids. ___ Special Diet Instructions: ___ ACTIVITY: _x__ Avoid stress to suture line. Since you have had an anesthetic, it would be advisable not to drive, drink alcohol, or make major decisions over the next 24 hours. You may require more rest tonight and tomorrow. ___ May resume regular activity as tolerated. ___ Restrict activity as follows: ___ ___ Walk Only ___ ___ Do not go up and down stairs. ___ Do not ride in car until ___ ___ Do not drive car. ___ Do not have sexual intercourse. _x__ No heavy lifting, pushing or straining. _x__ Other: _Follow Dr Mendiola's written and verbal discharge instructions.__ BATHING/SHOWERING: ___ Sponge bathe until office visit. ___ Sitting in tub of warm water may relieve discomfort. ___ May tub bathe _x__ May shower in 24 hours ___ On day after surgery sit in tub of warm water to soak off dressing. DRESSING: _x__ Keep operative area dry and clean. _x__ Check the operative area for signs of bleeding. Apply pressure to the bleeding site if necessary and call your physician. ___ Change dressing as necessary using sterile dressing material or bandaid. ___ Reinforce dressing as necessary. ___ Change and care for wound as follows: ___ ___ Wear bra for ___ days following breast surgery for comfort. ___ Change drip pad as needed. ___ Wear scrotal support for comfort. WATCH FOR SIGNS OF INFECTION: (Usually appears 36-48 hours after surgery) Increased temperature (101 degrees Fahrenheit or higher) Redness or swelling Increased pain Foul odor or drainage. If you have any questions, please call your doctor at the number listed on your follow up instructions. Follow all instructions given to you by your physician. Please complete and return the survey you will be receiving in the mail to help us better serve our patients. Form: [id number] ([id number]) R: 08/30 DESCRIPTION OF PROSTATE ULTRASOUND AND TRANSPERINEAL BIOPSY: Ultrasound uses harmless sound waves to give us pictures of the prostate and allows us to accurately guide a biopsy needle to areas of the concern. Indications for prostatic biopsy include suspicion of cancer either by suspicious finger exam of the prostate or by elevation of a prostatic cancer screening blood test (PSA). The procedure is done in the operating room with general anesthesia. Initially, a complete finger examination is done. Next the ultrasound probe, finger-like in size and shape, is placed into the rectum. With slight movement of the probe many different views are obtained. A needle is inserted into the prostate through the skin below the scrotum to take biopsies. 12 or more biopsies are usually taken from the insertion sites. The entire exam takes 20-30 minutes. You may have some soreness around the rectum and biopsy area for several hour. You may also note blood in the urine and stool for a few days and in the semen for up to a month. We will not have the biopsies results for one to two weeks, so be patient. POSSIBLE RISKS OF PROSTATE ULTRASOUND AND TRANSPERINEAL BIOPSY: Blood may be noted in the stool and urine for a few days and in the semen for up to a month. Infection of the prostate or in the urine can occur even with the antibiotic preparation. You should call if you develop fever, chills, severe pain or have continuous or significant bleeding PREPARATION FOR PROSTATE ULTRASOUND AND TRANSPERINEAL BIOPSY: 1. No dietary restrictions on the day before the procedure. Nothing by mouth after midnight. 2. Medications will be reviewed by [facility] pre-test clinic and you will be notified either at pre-test visit or by telephone if any medications need to be taken the morning of surgery. 3. Blood thinners to be held 7 days prior to procedure. A list of medications that need to be held will be given. 4. A Fleets enema should be administered 2 hours prior to arrival to hospital. 5. You will be given antibiotics while in the operating room. FOLLOW-UP INSTRUCTIONS: Follow-up instructions will be given the day of your procedure. Additional Information VACCINATE! IT SAVES LIVES! Members of the community who have not yet received the COVID-19 vaccine and would like to receive it can visit one of [facility] vaccine clinics. There are many vaccine clinic locations within the [facility]. For locations and available times, please visit [email or web address] It is important to note that some COVID mobile vaccine clinics are held outdoors and may be canceled in rainy or stormy conditions. To learn more about pediatric vaccinations (ages 5-11), we invite you to visit the [facility] webpage. [email or web address] To learn more about the COVID-19 vaccine, we invite you to visit the CDC website for a list of frequently asked questions.https://www.cdc.gov/cor onavirus/2019-ncov/vaccines/faq.h tml [employer] Patient Portal Access Instructions: Stay connected with your healthcare team and access your personal medical information anytime with the [employer] Patient Portal. Please follow the directions below to create your [employer] account: 1.Access the email account you provided upon registration to the hospital/physician office.2.Look for an invitation email from [facility].3.Open the email and access the invitation link: Accept Invitation to [employer].4.Fill in the required wilson to create your account. To access your account, visit [email or web address]. Click the blue button labeled Access Patient Portal and then log in with the username and password that you created in the steps above. You will be able to view your test results, lab results, a summary of your visits, upcoming appointments and more. There is also a convenient messaging option where you can send secure messages to your provider. In addition, you will have the ability to download any documents or summaries to your computer and/or send the information securely to a physician. Remember that your healthcare information is confidential, so carefully consider who you will allow to register on the [facility] Patient Portal for access to your information. You can also access the [employer] Patient Portal on the [employer] shala. Simply click on Patient Portal and then log into your account. If you would like to receive a full copy of your medical records, please contact the [facility] Medical Records Department by calling [phone], Wednesday through Wednesday between 8 a.m. and 4:30 p.m. HOW TO SAFELY DISPOSE OF PRESCRIPTION MEDICATIONS Please use one of the following methods to safely dispose of your unused medications. 1.Use a drug disposal kit: the drug disposal pouch allows you to safely discard your old and unused drugs. Ask your nurse to give you one when you are discharged.2.Visit a local take-back location: Many local pharmacies and police departments have programs that collect old and unwanted prescription drugs. Call your local pharmacy or go to http://[employer].SeatMe/5K7We6g to find one close to you.3.Make use of household items: Use cat litter or old coffee grounds to dispose medications if other options are not available. Mix your drugs with these household products, seal them in an airtight container and throw it into the garbage. Call [facility]: [phone] to be sure your drugs can be disposed of in this way. Some medicines may require a different approach.4.Never flush your medications down the toilet. IF YOU HAVE BEEN PRESCRIBED AN OPIOID FOR PAIN If you have been prescribed an opioid (such as hydrocodone, oxycodone or morphine), it is critical to understand the possible side effects and risks of opioid pain medications. Even when taken as directed, opioids can have several side effects including: Tolerance, meaning you might need to take more of a medication for the same pain relief. Nausea, vomiting and/or constipation. Sleepiness, dizziness, dry mouth, confusion, depression or itching. Physical dependence, meaning you have withdrawal symptoms when a medication is stopped, can develop within a few days. KNOW YOUR RESPONSIBILITIES It is important to know exactly how much and how often to take the opioid pain medications you are prescribed. Never take opioids in higher amounts or more often than prescribed. Do not combine opioids with alcohol or other drugs that cause drowsiness, such as benzodiazepines, also known as benzos, including diazepam and alprazolam, muscle relaxants or sleep aids. Never sell or share prescription opioids. This is illegal. Store opioids in a secure place and out of reach of others (including children, family, friends and visitors). The last page of this document has been signed and retained as a CHART COPY. Signatures Patient Education Materials 1-SDS Discharge Instructions Template (02/2018) (CUSTOM) 1-[facility] Prostate Biopsy [facility] Instructions(03/2022) (CUSTOM) Medication Leaflets My discharge plan and instructions have been reviewed and explained to me and I,AMINATA GAY understand my current condition and have read and understand these discharge instructions. I have received a written copy of the plan/instructions. If I have questions, I am aware that I should contact my doctor. 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 Health Status Allergies: Allergic Reactions (Selected) Severity Not Documented Chlorhexidine topical- Rash. Sulfa- Hives, rash and difficulty breathing., Allergies (2) ActiveReaction chlorhexidine topicalRash sulfaDifficulty breathing Current medications: (Selected) Inpatient Medications Ordered Garamycin: Start: 02/10/23 5:00:00 EDT, Dose = 150 mg, = 3.75 mL, IV Piggyback, PREOP pharm, Rate: 107.5 mL/hr, Infuse over: 30 minute(s), 0, 02/10/23 5:00:00 EDT LR 1,000 mL: Start: 02/10/23 5:00:00 EDT, Rate: 75 mL/hr, 02/10/23 5:00:00 EDT lidocaine 1% preservative-free injectable solution: Start: 02/10/23 5:00:00 EDT, Dose = 2.5 mg, = 0.25 mL, Intradermal, prep pharm, 02/10/23 5:00:00 EDT Documented Medications Documented ALPRAZolam 0.25 mg oral tablet: Dose : 0.125 mg = 0.5 tab(s), Oral, BID, PRN for anxiety, 0 Refill(s), 100.4 COQ10 200MG: COQ10 200MG, 1 cap(s), Oral, qDay, 0 Refill(s), 100.4 Creon 36,000 units oral delayed release capsule: 1 cap(s), Oral, TIDM, 0 Refill(s) Fish Oil 1200 mg oral capsule: Dose : 1,200 mg = 1 cap(s), Oral, qDay, 0 Refill(s) Metoprolol Tartrate 50 mg oral tablet: Dose : 50 mg = 1 tab(s), Oral, BID, # 180 tab(s), 0 Refill(s) Vitamin B Complex oral capsule: Dose = 1 cap(s), Oral, Daily, 0 Refill(s) Vitamin C 1000 mg oral tablet: Dose : 1,000 mg = 1 tab(s), Oral, qDay, 0 Refill(s) Vitamin D3 50 mcg (2000 intl units) oral tablet: Dose : 100 mcg = 2 tab(s), Oral, Daily, 0 Refill(s) famotidine 20 mg oral tablet: Dose : 20 mg = 1 tab(s), Oral, qDay, PRN Indigestion losartan 25 mg oral tablet: Dose : 25 mg = 1 tab(s), Oral, 12 (noon), 0 Refill(s) metroNIDAZOLE 0.75% topical gel: Apply 1 shala, Topical, BID, PRN ROSACEA, 0 Refill(s), 100.4, Medications (3) Active Scheduled: (2) gentamicin 150 mg 3.75 mL, IV Piggyback, PREOP pharm lidocaine 1% (MPF) 2 mL vial pf 2.5 mg 0.25 mL, Intradermal, prep pharm Continuous: (1) Lactated Ringers 1,000 mL 1,000 mL, Intravenous, 75 mL/hr PRN: (0) Problem list: Medical Cardiac murmur, intensity grade I/ / SNOMED CT 12788546 / Confirmed Carotid bruit / SNOMED CT 0003370279 / Confirmed GERD - Gastro-esophageal reflux disease / SNOMED CT 3327511302 / Confirmed HYPERTENSION / SNOMED CT 8123014111 / Confirmed Hypertriglyceridemia / SNOMED CT 802409404 / Confirmed Insomnia / SNOMED CT 446768954 / Confirmed Prostate cancer; Kuldeep 6 (GG1) cT1c dx October 2021; iPSA 5.45; 32mL prostate; Oncotype GPS 24 / SNOMED CT 8659864119 / Confirmed Obesity / SNOMED CT 5968866958 / Confirmed RUPESH - Obstructive sleep apnea / SNOMED CT 2134859367 / Confirmed Panic disorder / SNOMED CT 1179370027 / Confirmed Polyarthropathy / SNOMED CT 75221341 / Confirmed, Active Problems (24) Anxiety Arthritis Bleeds easily BMI 32.0-32.9,adult Cardiac murmur, intensity grade I/ Carotid bruit CPAP (continuous positive airway pressure) dependence Exocrine pancreatic insufficiency GERD - Gastro-esophageal reflux disease Glasses History of COVID-19 HYPERTENSION Hypertriglyceridemia IBS (irritable bowel syndrome) Insomnia Obesity RUPESH - Obstructive sleep apnea Palpitations Panic disorder Polyarthropathy PONV (postoperative nausea and vomiting) Prostate cancer; Kuldeep 6 (GG1) cT1c dx October 2021; iPSA 5.45; 32mL prostate; Oncotype GPS 24 Rosacea Slow to wake up after anesthesia Histories Past Medical History: Resolved PSA elevation ([id number]): Resolved. UMBILICAL HERNIA WITHOUT MENTION OF OBSTRUCTION OR GANGRENE ([id number]): Resolved. Family History: Cancer Father Aortic valve replacement and aortoplasty Brother Heart disease Grandparent Aortic aneurysm Brother Arthritis Mother Prostate cancer Maternal Uncle Procedure history: MRI-US fusion guided transperineal biopsy of prostate ([id number]) on 11/13/2021 at 71 Years. Hernia repair ([id number]) on 01/22/2021 at 70 Years. Comments: 07/15/2021 15:39 Riddhi Lancaster LPN Umbilical Jaw ([id number]) in 1996 at 46 Years. Comments: 11/03/2021 9:47 Kisha Walsh RN removal of hardware Orthognathic surgery ([id number]). Comments: 02/01/2023 11:33 CASPER Harrison RECONSTRUCTION 09/30/2020 7:53 Riddhi Mejias LPN jaw malalignment Tonsillectomy (220660051). Hernia repair ([id number]). Comments: 09/30/2020 7:54 Riddhi Mejias LPN Inguinal bilateral Vasectomy (63935219). Esophagogastroduodenoscopy (424366774). Colonoscopy (283818952). Extraction of wisdom tooth (429576421). 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 Physical Examination Vital Signs(last 24 hrs) Last Charted Resp Rate 16 br/min (FEB 10 11:35) SBPH 155mmHg (FEB 10 11:35) DBP79 mmHg (FEB 10 11:35) Measurements from flowsheet : Measurements 02/10/2023 11:35 EDT Height 177.8 cm Height in inches 70 inch(es) Admission Weight 97.6 kg Weight Lbs 214.7 lb Weight Method Actual [place] Body Weight 73.00 kg Type of Scale Used Bed scale Admission Body Mass Index 30.87 m2 General: Alert and oriented. Airway: Mallampati classification: II (soft palate, fauces, uvula visible). Dentition Evaluation: Intact. Respiratory: Lungs are clear to auscultation, Respirations are non-labored. Cardiovascular: Normal rate, Regular rhythm. Heart Sounds: Normal. Neurologic: Alert, Oriented. Review / Management Results review: No qualifying data available . Documentation reviewed: Current records. Assessment and Plan [employer] Anesthesiologists (ASA) physical status classification: Class III. Anesthetic Preoperative Plan Premedication: intravenous. Anesthetic technique: MAC. Induction: intravenously. Postoperative pain management: Per surgeon. Informed consent: signed by patient. Notes: RUPESH, HTN. Digitally Signed by MALCOM BERGER MD on 02/10/2023 04:06 PM [facility] 02-02-2023 Note . MICRO - Microbiology PROCEDURE: Urine Culture [*1] SOURCE: Urine, Clean Catch BODY SITE: COLLECTED DATE/TIME: 02/01/2023 10:22 EDT RECEIVED DATE/TIME: 02/01/2023 14:43 EDT START DATE/TIME: 02/01/2023 14:43 EDT FREE TEXT SOURCE: FINAL REPORTS Final Report [] Verified Date/Time/Personnel: 02/02/2023 16:18 EDT 10,000 - 50,000 cfu/ml Gram Positive Rods Sensitivity testing is not recommended for one of the following reasons: 1. Established susceptibility patterns are available or 2. Interpretative criteria are not available. Performing Locations *1: This test was performed at: [facility], [address] [place] [address], [id number] , [facility] ([place]) 11-13-2021 Hospital Discharge instructions Patient Education 11/13/2021 12:49:13 1-SDS Discharge Instructions Template (02/2018)(CUSTOM) [facility] SAME DAY SURGERY DISCHARGE INSTRUCTIONS PLEASE FOLLOW THE INSTRUCTIONS BELOW MARKED WITH AN X: xRegular Diet: Start with clear liquids, then soup and crackers and gradually add other foods. ___ Drink extra fluids. ___ Special Diet Instructions: ___ ACTIVITY: xAvoid stress to suture line. Since you have had an anesthetic, it would be advisable not to drive, drink alcohol, or make major decisions over the next 24 hours. You may require more rest tonight and tomorrow. ___ May resume regular activity as tolerated. xRestrict activity as follows: Do not lift more than 10 pounds ___ Walk Only ___ ___ Do not go up and down stairs. ___ Do not ride in car until ___ ___ Do not drive car. ___ Do not have sexual intercourse. ___ No heavy lifting, pushing or straining. ___ Other: ___ BATHING/SHOWERING: ___ Sponge bathe until office visit. ___ Sitting in tub of warm water may relieve discomfort. ___ May tub bathe ___ May shower ___ On day after surgery sit in tub of warm water to soak off dressing. DRESSING: ___ Keep operative area dry and clean for ___ ___ Check the operative area for signs of bleeding. Apply pressure to the bleeding site if necessary and call your physician. ___ Change dressing as necessary using sterile dressing material or bandaid. ___ Reinforce dressing as necessary. ___ Change and care for wound as follows: ___ ___ Wear bra for ___ days following breast surgery for comfort. ___ Change drip pad as needed. ___ Wear scrotal support for comfort. WATCH FOR SIGNS OF INFECTION: (Usually appears 36-48 hours after surgery) Increased temperature (101 degrees Fahrenheit or higher) Redness or swelling Increased pain Foul odor or drainage. If you have any questions, please call your doctor at the number listed on your follow up instructions. Follow all instructions given to you by your physician. Please complete and return the survey you will be receiving in the mail to help us better serve our patients. Form: [id number] ([id number]) R: 08/30 Follow Up Care 10/07/2021 15:06:47 With:KARRI MENIDOLA MD, [facility], Urology Service Address: [address] [place] [address] [address] [place] [address] [phone] When: Unknown Comments:Follow-up as scheduled With:KARRI MENDIOLA MD, [facility], Urology Service Address: [address] [place] [address] [address] [place] [address] [phone] When: Unknown [facility] 09-22-2021 Note HNO ID: [id number] Author: KAREN Bedolla) Service: Radiology Author Type: Gallery Manager Type: Progress Notes Filed: 09/22/2021 9:51 AM Note Text: Radiology Service Progress Note DATE OF SERVICE: September 22, 2021 TIME: 9:45 AM PATIENT IDENTITY VERIFICATION COMPLETED USING TWO (2) STANDARD IDENTIFIERS: Name and Date of confirmed by patient verbally. FALL SCREENING: Has the patient had 2 falls in the last year or 1 fall with injury or currently using an Ambulatory Assistive Device (Walker, Cane, Wheelchair, Crutches, etc.)? No PATIENT GENDER DATA: Male PATIENT RELEVANT IMPLANT DATA REVIEWED: Yes ALLERGIES: Reviewed and unchanged CONTRAST ALLERGY: NO. EXAM: MRI - CONTRAST TYPE: GROUP II PERIPHERAL IV DATA: Ambulatory: A peripheral IV was started in the Left antecubital site with a Angio cath: 22 gauge. RADIOLOGY DEPARTMENT: MR; Exam(s) Completed: Body: Prostate SIGNATURE: RT Graeme(R) PATIENT NAME: Aminata Gay DATE: September 22, 2021 TIME: 9:45 AM [facility] 09-22-2021 History of Present illness Narrative Radiology Service Progress Note DATE OF SERVICE: September 22, 2021 TIME: 9:45 AM PATIENT IDENTITY VERIFICATION COMPLETED USING TWO (2) STANDARD IDENTIFIERS: Name and Date of confirmed by patient verbally. FALL SCREENING: Has the patient had 2 falls in the last year or 1 fall with injury or currently using an Ambulatory Assistive Device (Walker, Cane, Wheelchair, Crutches, etc.)? No PATIENT GENDER DATA: Male PATIENT RELEVANT IMPLANT DATA REVIEWED: Yes ALLERGIES: Reviewed and unchanged CONTRAST ALLERGY: NO. EXAM: MRI - CONTRAST TYPE: GROUP II PERIPHERAL IV DATA: Ambulatory: A peripheral IV was started in the Left antecubital site with a Angio cath: 22 gauge. RADIOLOGY DEPARTMENT: MR; Exam(s) Completed: Body: Prostate SIGNATURE: RT Graeme(R) PATIENT NAME: Aminata Gay DATE: September 22, 2021 TIME: 9:45 AM documented in this encounter [facility] 12-31-2020 Evaluation + Plan note Future Scheduled TestsProstate Specific Antigen 12/31/20Prostate Specific Antigen 07/09/21 [facility] Evaluation + Plan note Future Appointments Appointment Date:07/21/2021 01:30:00 PM Scheduled Provider: Location:UROLOGY Appointment Type:URO Nurse OV Future Scheduled TestsProstate Specific Antigen 12/31/20Prostate Specific Antigen 07/09/21 [facility] Evaluation + Plan note Future Appointments Appointment Date:11/21/2021 03:00:00 PM Scheduled Provider:KARRI MENDIOLA MD Location:UROLOGY Appointment Type:URO OV Talk Future Scheduled TestsProstate Specific Antigen 12/31/20Prostate Specific Antigen 07/09/21 [facility] Evaluation + Plan note Future Appointments Appointment Date:03/02/2022 01:10:00 PM Scheduled Provider:KARRI MENDIOLA MD Location:UROLOGY Appointment Type:URO OV Future Scheduled TestsProstate Specific Antigen 12/31/20Prostate Specific Antigen 07/09/21Prostate Specific Antigen 02/21/22 [facility] Evaluation + Plan note Future Appointments Appointment Date:03/02/2022 01:10:00 PM Scheduled Provider:KARRI MENDIOLA MD Location:UROLOGY Appointment Type:URO OV Future Scheduled TestsProstate Specific Antigen 07/09/21 [facility] Evaluation + Plan note Future Appointments Appointment Date:08/31/2022 10:00:00 AM Scheduled Provider:KARRI MENDIOLA MD Location:UROLOGY Appointment Type:URO OV Future Scheduled TestsProstate Specific Antigen 07/09/21Prostate Specific Antigen 08/31/22 [facility] Evaluation + Plan note Future Appointments Appointment Date:02/10/2023 12:05:00 PM Scheduled Provider: Location:Main OR Appointment Type:Surgery - [facility] Appointment Date:02/19/2023 03:10:00 PM Scheduled Provider:KARRI MENDIOLA MD Location:UROLOGY Appointment Type:URO OV [facility] Evaluation + Plan note Future Appointments Appointment Date:02/19/2023 03:10:00 PM Scheduled Provider:KARRI MENDIOLA MD Location:UROLOGY Appointment Type:URO OV [facility] Evaluation + Plan note Future Appointments Appointment Date:03/12/2023 09:00:00 AM Scheduled Provider: Location:XRAY Appointment Type:yyNM Inj Bone Imaging Whole Body1 Appointment Date:03/12/2023 12:00:00 PM Scheduled Provider: Location:XRAY Appointment Type:yyNM Bone Imaging Whole Body Scan Appointment Date:04/02/2023 03:10:00 PM Scheduled Provider:KARRI MENDIOLA MD Location:UROLOGY Appointment Type:URO OV Talk 20 min Future Scheduled TestsNM Bone Imaging Whole Body 03/12/23 [facility] Evaluation + Plan note Future Appointments Appointment Date:03/12/2023 09:00:00 AM Scheduled Provider: Location:XRAY Appointment Type:yyNM Inj Bone Imaging Whole Body1 Appointment Date:03/12/2023 12:00:00 PM Scheduled Provider: Location:XRAY Appointment Type:yyNM Bone Imaging Whole Body Scan Appointment Date:04/02/2023 03:10:00 PM Scheduled Provider:KARRI MENDIOLA MD Location:UROLOGY Appointment Type:URO OV Talk 20 min Future Scheduled TestsUrine Culture 03/08/23NM Bone Imaging Whole Body 03/12/23 [facility] Evaluation + Plan note Future Appointments Appointment Date:04/02/2023 03:10:00 PM Scheduled Provider:KARRI MENDIOLA MD Location:UROLOGY Appointment Type:URO OV Talk 20 min Future Scheduled TestsUrine Culture 03/08/23 [facility] Evaluation + Plan note Future Appointments Appointment Date:09/27/2023 09:30:00 AM Scheduled Provider:KARRI MENDIOLA MD Location:UROLOGY Appointment Type:URO OV Future Scheduled TestsProstate Specific Antigen 10/01/23US Scrotum Contents 04/20/23 [facility] Hospital course Narrative No data available for this section [facility] Hospital Discharge instructions No data available for this section [facility] Progress note No data available for this section [facility] Summary Purpose Family History No Family History Records FoundNo Family History Records FoundNo Family History Records Found No data available for this section No data available for this section No data available for this section No data available for this section No data available for this section No data available for this section No data available for this section No data available for this section No data available for this section No Family History Records FoundNo Family History Records Found Advance Directives No Advanced Directives Records FoundNo Advanced Directives Records FoundNo Advanced Directives Records FoundNo Advanced Directives Records FoundNo Advanced Directives Records Found Additional Source Comments (unrecognized sect ion and content) No Status Records FoundNo Status Records FoundNo Status Records FoundNo Status Records FoundNo Status Records Found INFORMATION SOURCE (unrecogn ized section and content) DATE CREATED AUTHOR AUTHOR'S ORGANIZ ATION 09/26/2021 [facility] DATE CREATED AUTHOR AUTHOR'S ORGANIZ ATION 10/28/2021 [facility] DATE CREATED AUTHOR AUTHOR'S ORGANIZ ATION 05/15/2023 [facility] ([place]) DATE CREATED AUTHOR AUTHOR'S ORGANIZ ATION [facility] Source Comments (unrecognize d section and content) In the event this informatio n is protected by the Federal Confidentiality of Alcohol and Drug Abuse Patient Records regulations: The Federal rules restrict any use of the information to criminally investigate or prosecute any alcohol or drug abuse patient.[facility] Care Teams (unrecognized sec tion and content) Care Team (unrecognized sect ion and content) Personnel Name: CECE ASHER MD Address: Address: [address] [place] [address] Care Team Personnel Name: CECE ASHER MD [facility] Service: Internal Medicine Member Role: Primary Care Physician Address: Address: [address] [place] [address] Care Team Related Persons Name: LUKE GAY Name: DEEPAK GAY Name: CAROLINE GAY Care Team Personnel Name: CECE ASHER MD Med Service: Internal Medicine Member Role: Primary Care Physician Address: Address: [address] [place] [address] Care Team Related Persons Name: LUKE GAY Name: DEEPAK GAY Name: CAROLINE GAY Care Team Personnel Name: CECE ASHER MD Med Service: Internal Medicine Member Role: Primary Care Physician Address: Address: [address] [place] [address] Care Team Related Persons Name: LUKE GAY Name: DEEPAK GAY Name: CAROLINE GAY FOR RECORDS PERTAINING TO PATIENTS WHO ARE OR HAVE BEEN ENROLLED IN A CHEMICAL DEPENDENCY/SUBSTANCEABUSE PROGRAM, SOME INFORMATION MAY BE OMITTED. This clinical summary was aggregated from multiple sources. Caution should be exercised in using it in the provision of clinical care. This summary normalizes information from multiple sources, and as a consequence, information in this document may materially change the coding, format and clinical context of patient data. In addition, data may be omitted in some cases. CLINICAL DECISIONS SHOULD BE BASED ON THE PRIMARY CLINICAL RECORDS. [facility] provides no warranty or guarantee of the accuracy or completeness of information in this document.
[2023-06-16] MEDS: Lactated Ringers 1,000 ML 15 ML IV (06:44)
[2023-06-16 06:46] VITALS: BP 151/77; PULSE 72; RESP 16; TEMP 36.6; O2SAT 97; BMI 34.2
--- NOTE | 2023-06-16 07:21 | HP.PCM_ITS ---
HPI - General General Date of Service: 06/16/23 HPI Narrative AMINATA GAY, is a 73 M who presents for placement of spacer and also markers for prostate cancer he plans to have radiation therapy [facility] Medical History (Updated 06/14/23 @ 10:46 by Peggy Lawson) Alcohol use Anxiety Arthritis Basal cell carcinoma (BCC) Blood type O- Cardiac murmur CPAP (continuous positive airway pressure) dependence Elevated PSA Excessive bleeding Fatty liver Gastric reflux HLD (hyperlipidemia) HTN (hypertension) Low HDL (under 40) Migraine with visual aura Non-smoker Obesity Occlusion and stenosis of bilateral carotid arteries RUPESH (obstructive sleep apnea) Palpitations PONV (postoperative nausea and vomiting) Prostate cancer Pure hyperglyceridemia Seasonal affective disorder Umbilical hernia Wears glasses Home Medications metoprolol tartrate 50 mg tablet 50 mg PO BID 06/08/22 [History Last Taken 06/16/23] omega-3 fatty acids 1,000 mg capsule 1,000 mg PO DAILY 06/08/22 [History Last Taken Unknown] alprazolam 0.25 mg tablet 0.125 mg PO BID PRN anxiety 04/06/23 [History Last Taken Unknown] ascorbic acid (vitamin C) 1,000 mg tablet 1 g PO DAILY 04/06/23 [History Last Taken Unknown] coenzyme Q10 200 mg capsule (Co Q-10) 200 mg PO DAILY 04/06/23 [History Last Taken Unknown] losartan 25 mg tablet 25 mg PO DAILY 04/06/23 [History Last Taken Unknown] metronidazole 0.75 % topical gel 1 applic topical BID PRN ROSACEA 04/06/23 [History Last Taken Unknown] vitamin B complex (B Complex-Vitamin B12 tablet) 1 tab PO DAILY 04/06/23 [History Last Taken Unknown] cholecalciferol (vitamin D3) 125 mcg (5,000 unit) tablet (Vitamin D3) 125 mcg PO DAILY 06/14/23 [History Last Taken Unknown] ciprofloxacin HCl 500 mg tablet 500 mg PO .COMPLEX 06/14/23 [History Last Taken Unknown] famotidine 20 mg tablet 20 mg PO DAILY PRN GERD 06/14/23 [History Last Taken Unknown] Allergy/AdvReac Type Severity Reaction Status Date / Time Sulfa (Sulfonamide Allergy Intermediate Hives Verified 06/14/23 10:24 Antibiotics) chlorhexidine Allergy Rash Verified 06/14/23 10:24 Family History Father Lung cancer Brother Aortic aneurysm Uncle Prostate cancer maternal Other Heart disease Surgical History (Updated 06/14/23 @ 10:29 by Peggy Lawson) H/O inguinal hernia repair H/O prostate biopsy H/O umbilical hernia repair History of colonoscopy History of esophagogastroduodenoscopy History of hernia repair History of mandibular surgery History of tonsillectomy History of vasectomy History of wisdom tooth extraction Social History Smoking Status: Never smoker alcohol intake: current alcohol intake frequency: holidays/special occasions only substance use type: does not use Vital Signs Vital Signs Vital Signs: 06/16/23 06:42 06/16/23 06:46 Temperature 97.9 F Temperature Source Temporal Pulse Rate 72 Respiratory Rate 16 Respiratory Pattern Normal Blood Pressure 151/77 H Blood Pressure Mean 101 Blood Pressure Source Monitor Blood Pressure Position Sitting Blood Pressure Location Right Arm Pulse Ox 97 Oxygen Delivery Method Room Air Weight Weight: 105 kg Body Mass Index (BMI) 34.2
--- NOTE | 2023-06-16 07:23 | DCINST_ITS ---
Discharge Instructions Diet Discharge Diet: No restrictions Activity Discharge Activity: Return to Normal Activity and May Not Drive (while taking narcotic pain medications.) Dressing / Incision Call your doctor if you observe: Fever of 101 or Higher Follow Up Care Please Follow Up With: Eben Peck MD When: Call [phone] for an appointment Test Results: Test results from this visit will be discussed in further detail at your follow- up appointment, if applicable. Discharge Plan Admission Primary Reason for Your Visit: Markers and spacer Attending Provider: Eben Peck Primary Care Provider: Artur Branch Discharge Orders/Prescriptions Prescriptions: Continued omega-3 fatty acids 1,000 mg capsule 1,000 mg PO DAILY metoprolol tartrate 50 mg tablet 50 mg PO BID alprazolam 0.25 mg tablet 0.125 mg PO BID PRN (Reason: anxiety) ascorbic acid (vitamin C) 1,000 mg tablet 1 g PO DAILY losartan 25 mg tablet 25 mg PO DAILY metronidazole 0.75 % gel 1 applic topical BID PRN (Reason: ROSACEA) coenzyme Q10 [Co Q-10] 200 mg capsule 200 mg PO DAILY vitamin B complex [B Complex-Vitamin B12] Tablet 1 tab PO DAILY cholecalciferol (vitamin D3) [Vitamin D3] 125 mcg (5,000 unit) tablet 125 mcg PO DAILY famotidine 20 mg tablet 20 mg PO DAILY PRN (Reason: GERD) ciprofloxacin HCl 500 mg tablet 500 mg PO .COMPLEX Patient Comments: TAKE 1 TABLET BY MOUTH TWICE DAILY DIRECTED BY PREOP INSTRUCTIONS GIVEN Rx Instructions: 500 mg orally PREOP AND POD 1; Referrals / Follow Up: Artur Branch MD [Primary Care Provider] - Eben Peck MD [Med Staff - Active Staff] - Disposition Disposition (needs filled in before D/C Order can be placed): Home, Self Care
--- NOTE | 2023-06-16 07:23 | OP.PCM_ITS ---
Report of Operation Date of Procedure: 06/16/23 Pre-Operative Diagnosis: Spacer and markers for prostate cancer Post-Operative Diagnosis: The same Surgery/Procedure Performed:: Placement of gold markers and spacer gel matrix Description of Surgical Findings:: Patient was taken back to the operating room after smooth induction of anesthesia he was placed supine on the table. The genitals and perineum were prepped and draped in usual sterile fashion. I then introduced a biplanar ultrasound probe into the rectum and performed ultrasonography and identified the Denonvilliers' fascia the prostate mid base and apex and seminal vesicles. Identified the base mid and apex of the prostate identified the transition zone prostate. Then using a needle the first pattern marker was placed into the right base of the prostate, the second pattern marker was placed in the left base of the prostate, and the third core marker was placed in the right apex of the prostate after all 3 markers were placed the placement of the markers were confirmed by ultrasonography. The spacer gel mix was then prepared on the back table per manufactures instruction. Under ultrasound guidance in the midline perineum a bevel needle down we advanced through the perineum below the prostate into the space of Denonvilliers' fascia. This space which could be identified by ultrasound with a bright white layer between the prostate and the rectum. I then injected a puff of normal saline to identify the space further. After I confirmed that the needle was in the correct space in the mid prostate and the space of Denonvilliers' fascia between the rectum and the prostate. Then over the course of 15 seconds the gel matrix was injected slowly there was nice separation between the prostate and the rectum at the gel matrix was injected. The position of the gel matrix was confirmed by ultrasound. Then the injection needle was removed intact. Patient's perineum was cleaned patient was taken out of stirrups and then taken back to the PACU in good condition. Surgeon: Eben Peck Type of Anesthesia: General Admit VTE Documentation VTE Present on Admission: No VTE Mechan Device Prophylaxis: SCD's VTE Pharm Prophylaxis ordered?: No
[2023-06-16] MEDS: Cefazolin 2 GM in 0.9% Normal Saline (100mL Bag) 100 ML IV (07:25)
[2023-06-16 07:50] VITALS: BP 125/47; BP 151/77; PULSE 73; RESP 18; TEMP 36; O2SAT 94
[2023-06-16 07:55] VITALS: BP 115/56; BP 151/77; PULSE 72; RESP 16; O2SAT 95
[2023-06-16 08:00] VITALS: BP 117/61; BP 151/77; PULSE 72; RESP 16; TEMP 36.4; O2SAT 94
[2023-06-16 08:21] VITALS: BP 151/77
== END 2023-06-16 08:59 | disposition home or self-care (01) ==
LOC: SDC 05:53 → AC 05:54
PROVIDERS: PCP Internal Medicine; Referring Provider Urology; Visit Provider Urology
PROC: (CPT 55874; principal; 2023-06-16 07:15)
DX: C61 Malignant neoplasm of prostate (principal); E78.1 Pure hyperglyceridemia; Z80.42 Family history of malignant neoplasm of prostate; Z80.1 Family history of malignant neoplasm of trachea, bronchus and lung; I10 Essential (primary) hypertension; Z87.19 Personal history of other diseases of the digestive system; Z98.52 Vasectomy status; G47.33 Obstructive sleep apnea (adult) (pediatric); Z99.89 Dependence on other enabling machines and devices; K21.9 Gastro-esophageal reflux disease without esophagitis
CPT/HCPCS: 55876; J7120; J2405

== ENCOUNTER → 2023-06-23 | Outpatient (CLI) | payer MEDICARE, OTHER, SELFPAY ==
--- NOTE | 2023-06-23 12:35 | MRI_ITS ---
STUDY: MR PROSTATE GLAND/ PELVIS WITH T WITHOUT CONTRAST REASON FOR EXAM: Male, 73 years old. planning for radiation therapy -- eval extent of cancer in prostate..PSA 4.88 ON 02/01/23 TECHNIQUE: Standardized fat and water weighted pulse sequences were obtained in all 3 orthogonal planes, pre-and post contrast administration. IV CLARISCAN 20ML was administered for the contrast portion of the examination. COMPARISON: Nuclear medicine whole body bone scan dated March 12, 2023. CT of abdomen and pelvis therapy planning study dated June 23, 2023 FINDINGS: Prostate gland volume/size: 4.09 x 4.65 x 4.06 cm. Anterior fibromuscular stroma: Within normal limits. Peripheral zone: The normally bright homogeneous signal of the bilateral peripheral glands has nearly completely replaced by heterogeneous low signal nodules except small peripheral areas best seen on image 14/30 series 8. On the diffusion-weighted sequence there is diffusely bright signal throughout the entire prostate parenchyma from the apex of the base. This would suggest diffuse malignant infiltration of the prostate gland. Lobular low signal nodules are present in the bilateral peripheral zones and in the transitional zones maximally measuring 1.18 cm on the right and 1.27 cm on the left also best visualized on image 14/30 series 8. There is moderate enhancement of these nodules on the postcontrast study see image #25/40 series 12. Several of the regions of intermediate to low signal nodules in the bilateral peripheral and transitional zones demonstrate no enhancement or minimal enhancement which is likely due to some intermixed hyperplasia. Central zone: A moderate size 2.51 x 1.18 cm fluid-filled cyst is herniating from the left side and superior aspect of the prostate gland into the midline of the seminal vesicles there are some internal solid components and debris within this cystic lesion that demonstrates significant enhancement on postcontrast image 9/32 series 11, this is concerning for a component of cystic neoplasm. Transitional zone: Diffusely heterogeneous and nodular with diffuse enhancement. Prostate capsule: Intact without mass extension into the adjacent regions. Seminal vesicles: Within normal limits. Pelvic sidewall lymphadenopathy: None demonstrated on the current study Bony structures: No lytic or blastic lesions or bone marrow edema is present. Mild circumferential thickening and trabeculation of the bladder wall. . No bladder masses or obvious stones are present. Normal visualized small intestine. Normal visualized colon. There is no pelvic fluid. Normal abdominal wall. A small fat-containing left inguinal hernia is present. MRI/Pelvis W/WO Contrast IMPRESSION: 1. Peripheral zone: The normally bright homogeneous signal of the bilateral peripheral glands has nearly completely replaced by heterogeneous low signal nodules except small peripheral areas best seen on image 14/30 series 8. On the diffusion-weighted sequence there is diffusely bright signal throughout the entire prostate parenchyma from the apex of the base. This would suggest diffuse malignant infiltration of the prostate gland. Lobular low signal nodules are present in the bilateral peripheral zones and in the transitional zones maximally measuring 1.18 cm on the right and 1.27 cm on the left also best visualized on image 14/30 series 8. There is moderate enhancement of these nodules on the postcontrast study see image #25/40 series 12. 2. Central zone: A moderate size 2.51 x 1.18 cm fluid-filled cyst is herniating from the left side and superior aspect of the prostate gland into the midline of the seminal vesicles there are some internal solid components and debris within this cystic lesion that demonstrates significant enhancement on postcontrast image 9/32 series 11, this is concerning for a component of cystic neoplasm. 3. PI-RADS 4: high (clinically significant cancer is likely to be present) Reference information: Normal prostate tissue Benign prostatic hypertrophy cancer/tumor - low signal peripheral , transitional, and central zones malignancy appears as bright on DWI and low signal on ADC map Prostate imaging-reporting and data system (PI-RADS) PI-RADS 1: very low (clinically significant cancer is highly unlikely to be present) PI-RADS 2: low (clinically significant cancer is unlikely to be present) PI-RADS 3: intermediate (the presence of clinically significant cancer is equivocal) PI-RADS 4: high (clinically significant cancer is likely to be present) PI-RADS 5: very high (clinically significant cancer is highly likely to be present) PI-RADS X: component of exam technically inadequate or not performed Prostate malignancy distribution: Peripheral zone: 70-80% Transitional zone: 10-20% Central zone: 5% or less Electronically Signed: Kevin Umanzor MD at 11:58 EST ,
[2023-06-23 13:04] LABS: CREATININE FINGERSTICK < 1.0 mg/dL (0.70-1.30); EGFR FINGERSTICK > 60.0000 mL/min (>60)
== END | disposition home or self-care (01) ==
LOC: MRI 12:31
PROVIDERS: PCP Internal Medicine; Referring Provider Student in an Organized Health Care Education/Training Program; Visit Provider Student in an Organized Health Care Education/Training Program
DX: C61 Malignant neoplasm of prostate (principal)
CPT/HCPCS: 72197; A9575

== ENCOUNTER → 2024-12-25 | Outpatient (CLI) | payer MEDICARE, OTHER, SELFPAY ==
[2024-12-25 11:02] LABS: PSA,Total- Diagnostic 2.15 ng/mL (0.00-4.00)
--- OUTSIDE RECORDS SUMMARY | 2024-12-25 19:13 | XMS RPT_ITS | CCD ---
Author Organization [facility]iniSy[facility] Care Team Providers Care Telephone Mechanic Name Role Phone SARINA YARBROUGH, DR ZHAO Primary Care Physician [phone] Sarina YARBROUGH, Cece Primary Care Provider SARINA YARBROUGH, DR ZHAO Primary Care Physician SARINA YARBROUGH, DR ZHAO Primary Care Physician Friend, Dr. Dove Attending Provider Dr. Silviano Jones Attending Provider Dr. Cece Branch Primary Care Provider [phone] MARLENA YARBROUGH, DR ZENG Attending Tracee BRANCH MD, DR ZHAO Primary Care Unavailable MARLENA YARBROUGH, DR ZENG Attending Tracee BRANCH MD, BUTTESS Primary Care Unavailable MIGUEL MARQUES, ZARA Attending Baljit BRANCH MD, DR ZHAO Primary Care Unavailable PASCUAL MARQUES, BRITTNEY Agudelo Attending Veronica BRANCH MD, DR ZHAO Primary Care Unavailable PASCUAL MARQUES, BRITTNEY Agudelo Attending Veronica BRANCH MD, BUTROS Primary Care Unavailable MARLENA YARBROUGH, DR ZENG Attending Tracee BRANCH MD, BUTTESS Primary Care Unavailable PASCUAL MARQUES, BRITTNEY Agudelo Attending Veronica BRANCH MD, DR ZHAO Primary Care Unavailable MARLENA YARBROUGH, DR ZENG Attending Tracee BRANCH MD, DR ZHAO Primary Care Unavailable MARLENA YARBROUGH, DR ZENG Attending Tracee LOPEZ MD, BOBBY Munguia Consulting Neli Pendleton MD, DR ZHAO Primary Care Unavailable MALCOM BERGER MD Consulting Tony MENDIOLA MD, DR ZENG Consulting Unavailjass BRANCH MD, BUTROS Primary Care Unavailable MARLENA YARBROUGH, DR ZENG Attending Unavailjass MARQUES, BRITTNEY Agudelo Attending Veronica BRANCH MD, BUTROS Primary Care Unavailable MARLENA YARBROUGH, DR ZENG Attending Unavailjass BRANCH MD, BUTROS Primary Care Unavailable MARLENA YARBROUGH, DR ZENG Attending Unavailjass BRANCH MD, DR BUTROS Primary Care Unavailable PASCUAL MARQUES, BRITTNEY Agudelo Attending U bernabe BRANCH MD, DR BUTROS Primary Care Unavailable PASCUAL DE LA PAZQC SCIENTIST, BRITTNEY Agudelo Attending Veronica BRANCH MD, DR BUTROS Primary Care Unavailable [facility]-QC SCIENTIST, ZARA Attending Baljit BRANCH MD, BUTROS Primary Care Unavailable MARLENA YARBROUGH, DR ZENG Attending Unavailjass BRANCH MD, DR BUTROS Primary Care Unavailable MARLENA YARBROUGH, DR ZENG Attending Unavailjass BRANCH MD, DR BUTROS Primary Care Unavailable MARLENA YARBROUGH, DR ZENG Attending Unavailjass BRANCH MD, DR BUTROS Primary Care Unavailable Silviano Jones Attending Unavailable Latouf, Butros Primary Care Unavailable Susie, Derrell Attending Unavailable Latouf, Butros Referring Unavailable Latouf, Butros Primary Care Unavailable Latouf, Butros Referring Unavailable Latouf, Butros Primary Care Unavailable Silviano Jones Attending Unavailable Latouf, Butros Primary Care Unavailable Silviano Jones Attending Unavailable Silviano Jones Attending Unavailable Silviano Jones Referring Unavailable Latouf, Butros Primary Care Unavailable Silviano Jones Attending Unavailable Silviano Jones Referring Unavailable Latouf, Butros Primary Care Unavailable Latouf, Butros Primary Care Unavailable Silviano Jones Attending Unavailable Silviano Jones Referring Unavailable HARIKA SANTANA Admitting Unavailable CECE BRANCH MD Consulting Unavailable HARIKA SANTANA Attending Unavailable HARIKA SANTANA Primary Care Unavailable PROVIDER, UNKNOWN Consulting Unavailable PROVIDER, UNKNOWN Consulting Unavailable PROVIDER, UNKNOWN Consulting Unavailable CECE BRANCH MD Admitting Unavailable CECE BRANCH MD Attending Unavailable CECE BRANCH MD Consulting Unavailable CECE BRANCH MD Primary Care Unavailable PROVIDER, UNKNOWN Consulting Unavailable PROVIDER, UNKNOWN Consulting Unavailable PROVIDER, UNKNOWN Consulting Unavailable CECE BRANCH MD Admitting Unavailable CECE BRANCH MD Attending Unavailable CECE BRANCH MD Consulting Unavailable CECE BRANCH MD Primary Care Unavailable PROVIDER, UNKNOWN Consulting Unavailable PROVIDER, UNKNOWN Consulting Unavailable PROVIDER, UNKNOWN Consulting Unavailable SARINA, CECE YARBROUGH Primary Care Unavailable SARINA, CECE YARBROUGH Admitting Unavailable SARINA, CECE YARBROUGH Attending Unavailable LATYVETTE, CECE YARBROUGH Consulting Unavailable PROVIDER, UNKNOWN Consulting Unavailable PROVIDER, UNKNOWN Consulting Unavailable PROVIDER, UNKNOWN Consulting Unavailable SARINA, CECE YARBROUGH Primary Care Unavailable LATOULian, CECE YARBROUGH Admitting Unavailable LATYVETTE, CECE YARBROUGH Attending Unavailable SARINA, CECE YARBROUGH Consulting Unavailable PROVIDER, UNKNOWN Consulting Unavailable PROVIDER, UNKNOWN Consulting Unavailable PROVIDER, UNKNOWN Consulting Unavailable SARINA YARBROUGH, DR ZHAO Primary Care Unavailable MARLENA YARBROUGH, DR ZENG Attending Unavaila von BRANCH MD, DR ZHAO Primary Care Unavailable MARLENA YARBROUGH, DR ZENG Attending Unavaila von BRANCH MD, DR ZHAO Primary Care Unavailable MARLENA YARBROUGH, DR ZENG Attending Unavaila ble PASCUAL WASHER AND CRUSHER TENDER-QC SCIENTIST, BRITTNEY Agudelo Attending U bernabe BRANCH MD, DR ZHAO Primary Care Unavailable MARLENA YARBROUGH, DR ZENG Attending Unavaila von BRANCH MD, DR ZHAO Primary Care Unavailable Allergies Allergy Classification Reported Allergen(s) Allergy Type Date of Onset Reaction(s) Facility (20 sources) Sulfonamides (Antibiotic); Translations: [sulfa drugs] Drug allergy Difficulty breathing (finding), Eruption of skin (disorder), Weal (disorder) [facility] (1 source) Sulfonamides (Antibiotic) Drug Allergy 11-21-19 15 [facility] (20 sources) Chlorhexidine; Translations: [chlorhexidine topical] Drug Allergy 06-14-19 24 Eruption of skin (disorder) [facility] (4 sources) Sulfonamides (Antibiotic) Allergy to substance 06-08-19 23 [facility] (4 sources) Doxycycline; Translations: [doxycycline] Drug Allergy Lightheadedness (finding), Nausea (finding) [facility] (1 source) Chlorhexidine Drug Allergy 07-03-19 25 [facility] (1 source) Sulfonamides (Antibiotic) Drug allergy (disorder) 07-03-19 [facility] (1 source) Chlorhexidine Drug Allergy [facility] (1 source) Sulfonamides (Antibiotic) Drug allergy (disorder) [facility] Medications Current Medications Medication Drug Class(es) Dates Sig (Normalized) Sig (Original) ALPRAZolam 0.25 mg oral tablet (20 sources) Benzodiazepine Start: 04-06-2023 take 0.125 mg by mouth twice daily Alprazolam Active 0.125 MG PO TWICE A DAY April 06, 2023 4:34pm Start: 06-08-2022 End: 04-06-2023 ALPRAZolam 0.25 mg oral tabl et Dose : 0.125 mg = 0.5 tab(s), Oral, BID, PRN for anxiety, 0 Refill(s), 100.4 Start Date: 02/01/23 Status: Ordered Repeat number: 1 Start: 09-30-2020 take 0.5-1 tablets b y mouth three times daily as needed for anxiety ALPRAZolam 0.25 mg oral tablet 0.5-1 tab(s), Oral, TID, PRN for anxiety, 0 Refill(s) Start Date: 09/30/20 Status: Ordered amylase [id number] unt / lipase 28621 unt / protease [id number] unt delayed release oral capsule (12 sources) Start: 02-01-2023 Creon 36,000 u nits oral delayed release capsule 1 cap(s), Oral, TIDM, 0 Refill(s) Start Date: 02/01/23 Status: Ordered Start: 01-06-2023 End: 04-26-2023 Iarued-Eufyaavu-Lgcaeud (Cre on) 36,000-114,000- 180,000 unit capsule,delayed release(DR/EC) Discontinued 0 PO .COMPLEX 56 January 05, 2023 11:00pm April 26, 2023 9:58am take 1-2 with snacks and 2-3 with meals Will have voucher with him. Start: 01-01-2023 End: 04-06-2023 take [id number] capsules by mouth three times daily at mealtime Qxzacf-Cscsnwjp-Eptafbk (Creon) 24,000-76,000 -120,000 unit capsule,delayed release(DR/EC) Discontinued 1 CAP PO THREE TIMES A DAY December 31, 2022 11:00pm April 06, 2023 4:38pm administer with meals and/or snacks Ascorbic Acid (2 sources) Vitamin C Start: 04-06-2023 take 1 g by mouth once daily Ascorbic Acid (Vitamin C) Active 1 GM PO DAILY April 06, 2023 12:00am cholecalciferol 0.125 mg oral tablet (2 sources) Vitamin D Start: 06-14-2023 take 1 tablet by mouth once daily Cholecalciferol (Vitamin D3) (Vitamin D3) 125 mcg (5,000 unit) tablet Active 125 MCG PO DAILY June 14, 2023 12:00am ciprofloxacin 500 mg oral tablet (2 sources) Quinolone Antimicrobial Start: 06-14-2023 Ciprofloxacin Hcl Active 500 MG PO .COMPLEX June 14, 2023 12:00am 500 mg orally PREOP AND POD 1; famotidine 20 mg oral tablet (17 sources) Histamine-2 Receptor Antagonist Start: 06-14-2023 take 20 mg by mouth once daily Famotidine Active 20 MG PO DAILY June 14, 2023 12:00am Start: 11-03-2021 famotidine 20 mg oral tablet Dose : 20 mg = 1 tab(s), Oral, qDay, PRN Indigestion Start Date: 11/03/21 Status: Ordered Fish Oils (20 sources) Start: 09-30-2020 Fish Oil 1200 mg oral capsule Dose : 1,200 mg = 1 cap(s), Oral, qDay, 0 Refill(s) Start Date: 09/30/20 Status: Ordered Repeat number: 1 Start: 09-30-2020 Fish Oil 1200 mg oral capsule Dose : 1,200 mg = 1 cap(s), Oral, qDay, 0 Refill(s) Start Date: 09/30/20 Status: Ordered Start: 09-30-2020 Fish Oil 1200 mg oral capsule Dose : 1,200 mg = 1 cap(s), Oral, qDay, # 90 cap(s), 0 Refill(s) Start Date: 09/30/20 Status: Ordered losartan potassium 25 mg oral tablet (20 sources) Angiotensin 2 Receptor Lily Start: 09-30-2020 End: 01-01-2023 losartan 25 mg oral tablet Dose : 25 mg = 1 tab(s), Oral, 12 (noon), 0 Refill(s) Start Date: 09/30/20 Status: Ordered Repeat number: 1 metoprolol tartrate 50 mg oral tablet (20 sources) beta-Adrenergic Lily Start: 06-08-2022 Metoprolol Tartrate 50 mg oral tablet Dose : 50 mg = 1 tab(s), Oral, BID, # 180 tab(s), 0 Refill(s) Start Date: 02/01/23 Status: Ordered Quantity: 180.0 Unit: tab(s) Repeat number: 1 Start: 09-30-2020 Metoprolol Tar trate 50 mg oral tablet Dose : 50 mg = 1 tab(s), Oral, BID, 0 Refill(s) Start Date: 09/30/20 Status: Ordered Comment on above: Take 50 mg by mouth twice daily. metroNIDAZOLE 0.0075 mg/mg topical gel (16 sources) Nitroimidazole Antimicrobial Start: 04-06-2023 Metronidazole Active 1 APPLIC TOPICAL TWICE A DAY April 06, 2023 12:00am Start: 02-01-2023 metroNIDAZOLE 0.75% topical gel Apply 1 shala, Topical, BID, PRN ROSACEA, 0 Refill(s), 100.4 Start Date: 02/01/23 Status: Ordered Repeat number: 1 [place]-3 Fatty Acids (4 sources) Start: 06-08-2022 take 1000 mg by mout h once daily [place]-3 Fatty Acids Active 1000 MG PO DAILY June 08, 2022 12:00am Start: 06-08-2022 take 1000 mg by mouth once carole ly [place]-3 Fatty Acids Active 1000 MG PO DAILY June 08, 2022 1:00am ubidecarenone 200 mg oral ca psule (6 sources) Start: 04-06-2023 Coenzyme Q10 ( Co Q-10) 200 mg capsule Active 200 MG PO DAILY April 06, 2023 12:00am Start: 06-08-2022 End: 04-06-2023 Coenzyme Q10 (Co Q-10) 100 m g capsule Discontinued 100 MG PO DAILY June 08, 2022 12:00am April 06, 2023 4:37pm Vitamin B Complex (B Complex-Vitamin B12) tablet (2 sources) Start: 04-06-2023 take 1 tablet by mouth once daily Vitamin B Complex (B Complex-Vitamin B12) tablet Active 1 TABLET PO DAILY April 06, 2023 12:00am Vitamin B Complex oral capsule (20 sources) Start: 09-30-2020 take 1 capsule by mouth once daily Vitamin B Complex oral capsule Dose = 1 cap(s), Oral, Daily, 0 Refill(s) Start Date: 09/30/20 Status: Ordered Repeat number: 1 Start: 09-30-2020 take 1 capsule by [facility] once daily Vitamin B Complex oral capsule Dose = 1 cap(s), Oral, Daily, 0 Refill(s) Start Date: 09/30/20 Status: Ordered Vitamin C 1000 mg oral table t (20 sources) Start: 09-30-2020 Vitamin C 1000 mg oral tablet Dose : 1,000 mg = 1 tab(s), Oral, qDay, 0 Refill(s) Start Date: 09/30/20 Status: Ordered Repeat number: 1 Start: 09-30-2020 Vitamin C 1000 mg oral tablet Dose : 1,000 mg = 1 tab(s), Oral, qDay, 0 Refill(s) Start Date: 09/30/20 Status: Ordered Start: 09-30-2020 Vitamin C 1000 mg oral tablet Dose : 1,000 mg = 1 tab(s), Oral, qDay, # 30 tab(s), 0 Refill(s) Start Date: 09/30/20 Status: Ordered Vitamin D3 (7 sources) Start: 09-30-2020 Vitamin D3 Dos e : 1,000 unit(s) = 1 tab(s), Oral, Daily, 0 Refill(s) Start Date: 09/30/20 Status: Ordered Vitamin D3 50 mcg (2000 intl units) oral tablet (14 sources) Start: 02-01-2023 Vitamin D3 50 mcg (2000 intl units) oral tablet Dose : 100 mcg = 2 tab(s), Oral, Daily, 0 Refill(s) Start Date: 02/01/23 Status: Ordered Repeat number: 1 Start: 02-01-2023 Vitamin D3 50 mcg (2000 intl units) oral tablet Dose : 100 mcg = 2 tab(s), Oral, Daily, 0 Refill(s) Start Date: 02/01/23 Status: Ordered Completed/Discontinued Medications Medication Drug Class(es) Dates Sig (Normalized) Sig (Original) COQ10 200MG (14 sources) Start: 02-01-2023 COQ10 200MG CO Q10 200MG, 1 cap(s), Oral, qDay, 0 Refill(s), 100.4 Start Date: 02/01/23 Status: Ordered Repeat number: 1 Start: 02-01-2023 COQ10 200MG CO Q10 200MG, 1 cap(s), Oral, qDay, 0 Refill(s), 100.4 Start Date: 02/01/23 Status: Ordered pantoprazole 40 mg delayed release oral tablet (3 sources) Proton Pump Inhibitor Start: 09-08-2022 End: 01-01-2023 Pantoprazole (Protonix) 40 mg tablet,delayed release (DR/EC) Discontinued 40 MG PO TWICE A DAY 60 September 07, 2022 11:00pm January 01, 2023 1:24pm take two times a day for eight weeks then once a day for 8 weeks then return to famotidine. sucralfate 100 mg/ml oral suspension (2 sources) Aluminum Complex Start: 01-01-2023 End: 04-06-2023 take 1 mL by mouth twice daily Sucralfate Discontinued 10 ML PO TWICE A DAY 400 December 31, 2022 11:00pm April 06, 2023 4:38pm zinc gluconate 50 mg oral tablet (4 sources) Start: 06-08-2022 End: 04-06-2023 take 50 mg by mouth once daily Zinc Gluconate Discontinued 50 MG PO DAILY June 08, 2022 12:00am April 06, 2023 4:38pm Problems Active Problems Problem Classification Problem Date Documented Da te Episodic/Chronic Abdominal hernia (8 sources) Umbilical hernia; Translations: [Umbilical hernia without obstruction or gangrene] Onset: 5 09-30-2020 Episodic Abdominal pain (1 source) Left inguinal pain 10-23-2024 Episodic Anxiety disorders (20 sources) Panic disorder; Translations: [Panic disorder [episodic paroxysmal anxiety]] 09-30-2020 Chronic Cancer of prostate (20 sources) Malignant tumor of prostate; Translations: [Malignant neoplasm of prostate] Onset: 3 11-21-2021 Chronic Coagulation and hemorrhagic disorders (1 source) Thrombocytopenia, unspecified; Translations: [Thrombocytopenia, unspecified] Onset: 4 Chronic Disorders of lipid metabolism (20 sources) Hypertriglyceridemia; Translations: [Hyperlipidemia, unspecified] Onset: 4 09-30-2020 Chronic Esophageal disorders (20 sources) Gastroesophageal reflux disease; Translations: [Gastro-esophageal reflux disease without esophagitis] Onset: 4 09-30-2020 Chronic Esophageal disorders (1 source) Esophageal disorders; Translations: [Gastro-esophageal reflux disease with esophagitis, without bleeding] Onset: 4 Essential hypertension (20 sources) Hypertensive disorder; Translations: [Essential (primary) hypertension] Onset: 4 09-30-2020 Chronic Genitourinary symptoms and ill-defined conditions (14 sources) Urinary symptoms ; Translations: [Unspecified symptoms and signs involving the genitourinary system] Onset: 3 03-08-2023 Episodic Heart valve disorders (20 sources) Cardiac murmur, intensity grade I/ 09-30-2020 Episodic Comment on above: states unable to hear this now per his physician Inflammatory conditions of male genital organs (6 sources) Orchitis and epididymitis 05-04-2023 Episodic Mood disorders (1 source) Other recurrent depressive disorders; Translations: [Other recurrent depressive disorders] Onset: 4 Chronic Nutritional deficiencies (1 source) Vitamin D deficiency, unspecified; Translations: [Vitamin D deficiency, unspecified] Onset: 5 Chronic Other circulatory disease (20 sources) Carotid bruit; Translations: [Other specified symptoms and signs involving the circulatory and respiratory systems] 09-30-2020 Episodic Other gastrointestinal disorders (4 sources) Stool finding; Translations: [Other fecal abnormalities] 08-20-2022 Episodic Other liver diseases (1 source) Fatty (change of) liver, not elsewhere classified; Translations: [Fatty (change of) liver, not elsewhere classified] Onset: 4 Chronic Other male genital disorders (6 sources) Hemospermia 04-08-2023 Episodic Other male genital disorders (6 sources) Pain in testicle 04-08-2023 Episodic Other non-traumatic joint disorders (20 sources) Polyarthropathy; Translations: [Polyarthritis, unspecified] 09-30-2020 Chronic Other nutritional; endocrine; and metabolic disorders (20 sources) Obesity 09-30-2020 Chronic Other screening for suspected conditions (not mental disorders or infectious disease) (6 sources) Raised prostate specific antigen; Translations: [Patient encounter status] Onset: 5 09-29-2020 Episodic Residual codes; unclassified (20 sources) Obstructive sleep apnea syndrome 09-30-2020 Chronic Residual codes; unclassified (20 sources) Insomnia; Translations: [Insomnia, unspecified] 09-30-2020 Episodic Unclassified (1 source) Small intestinal bacterial overgrowth, unspecified; Translations: [Small intestinal bacterial overgrowth, unspecified] Onset: Past or Other Problems Problem Classification Problem Date Documented Da te Episodic/Chronic Cardiac dysrhythmias (1 source) Tachycardia, unspecified; Translations: [Tachycardia, unspecified] Onset: 03-27-2024 Episodic Other gastrointestinal disorders (3 sources) Other fecal abnormalities; Translations: [Nonspecific abnormal findings in stool contents] Onset: 12-27-2023 08-20-2022 Episodic Results Test Name Value Interpretation Reference Range Facility URINE CULTURE [CCL]on 2024 Bacteria identified Cx Nom (U) URCUL See Results Below See Below CULTURE, URINE No growth (<1,000 CFU/ml) SOURCE: Urine (Nonspecific) [place] [address] Brijesh Pizano III, M.D. [id number] SEND TO IC NO Normal [facility] Comment on above: Performed By: #### 2 [id number] #### [facility],[address] [place], [place] [id number] Bacteria Ur Culton 5 Bacteria identified Cx Nom (U) CULTURE, URINE: No growth (<1,000 CFU/ml) Normal [facility] Comment on above: Performed By: #### 6 30-4 #### [facility] CLIA [id number] [address] [place] [address] [place] [address] [place] CBC + DIFFon 09-29-2024 Baso # 0.03 x10EE3/UL Normal 0.00 - 0.10 [facility] Comment on above: Performed By: #### 2 56237 #### [facility],[address] [place] [address] Basophils/100 WBC (Bld) 0.5 % Normal 0.0 - 2.0 [facility] Comment on above: Performed By: #### 2 88456 #### [facility],[address] [place] [address] CBC + DIFF Normal [facility] Comment on above: Result Comment: CBC- COMPLETE BLOOD COUNT Performed By: #### 2 [id number] #### [facility],[address] [place] [address] EO # 0.13 x10EE3/UL Normal 0.00 - 0.50 [facility] Comment on above: Performed By: #### 2 43580 #### [place] [address] Eosinophils/100 WBC (Bld) 2.5 % Normal 0.0 - 7.0 [facility] Comment on above: Performed By: #### 2 29588 #### [facility],[address] [place] [address] Erythrocyte distribution width (RBC) [Ratio] 12.7 % Normal 12.0 - 15.6 [facility] Comment on above: Performed By: #### 2 21330 #### [facility],[address] [place] [address] Hematocrit (Bld) [Volume fraction] 44.6 % Normal 40.0 - 52.0 [facility] Comment on above: Performed By: #### 2 68755 #### [facility],[address] [place], [place] [id number] Hemoglobin (Bld) [Mass/Vol] 15.7 g/dL Normal 13.0 - 17.5 [facility] Comment on above: Performed By: #### 2 84092 #### [facility],[address] [place] [address] Lymph # 1.46 x10EE3/UL Normal 0.80 - 2.80 [facility] Comment on above: Performed By: #### 2 00063 #### [facility],[address] [place] [address] Lymphocytes/100 WBC (Bld) 28.4 % Normal 20.0 - 45.0 [facility] Comment on above: Performed By: #### 2 45633 #### [facility],[address] [place] [address] MANUAL DIFF N/A Normal [facility] Comment on above: Performed By: #### 2 22887 #### [facility],[address] [place] [address] MCH (RBC) [Entitic mass] 32 pg Normal 27 - 33 [facility] Comment on above: Performed By: #### 2 95137 #### [place] [address] MCHC 35 X10 3 Normal 32 - 36 [facility] Comment on above: Performed By: #### 2 22492 #### [place] [id number] MCV (RBC) [Entitic vol] 92 fL Normal 81 - 98 [facility] Comment on above: Performed By: #### 2 73936 #### [facility],[address] [place] [address] Nash # 0.51 x10EE3/UL Normal 0.20 - 1.00 [facility] Comment on above: Performed By: #### 2 43428 #### [place] [address] MONOS % 9.8 % Normal 0.0 - 10.0 [facility] Comment on above: Performed By: #### 2 55116 #### [facility],[address] [place], [place] [id number] Morphology Shady (Bld) [Interp] N/A Normal [facility] Comment on above: Performed By: #### 2 75107 #### [facility],[address] [place] [address] Neut # 3.02 x10EE3/UL Normal 1.50 - 7.10 [facility] Comment on above: Performed By: #### 2 88231 #### [place] [address] Neutrophils/100 WBC (Bld) 58.8 % Normal 46.0 - 76.0 [facility] Comment on above: Performed By: #### 2 67037 #### [place] [address] PLATELET 145 x10EE3/UL Low 150 - 450 [facility] Comment on above: Performed By: #### 2 49738 #### [place] [address] Platelet mean volume (Bld) [Entitic vol] 8.8 fL Normal 6.4 - 10.5 [facility] Comment on above: Result Comment: AUTO MATED DIFFERENTIAL Performed By: #### 2 59536 #### [place] [id number] RBC 4.87 x 10EE6/UL Normal 4.50 - 6.00 [facility] Comment on above: Performed By: #### 2 31892 #### [place] [id number] WBC 5.1 x 10EE3/UL Normal 4.5 - 10.8 [facility] Comment on above: Performed By: #### 2 50309 #### [address] [address] CMP with eGFRon 09-29-[address]24 AGE [address] [facility] Comment on above: Performed By: #### 2 66682 #### [place] [id number] Albumin [Mass/Vol] 3.3 g/dL Low 3.4 - 5.0 [facility] Comment on above: Performed By: #### 2 59224 #### [facility],[address] [place] [address] Albumin/Globulin [Mass ratio] 0.9 {ratio} Normal 0.9 - 1.6 [facility] Comment on above: Performed By: #### 2 80000 #### [facility],[address] [place] [address] ALK PHOS 97 U/L Normal 46 - 116 [facility] Comment on above: Performed By: #### 2 97538 #### [facility],[address] [place] [address] ALT [Catalytic activity/Vol] 50 U/L Normal 16 - 63 [facility] Comment on above: Performed By: #### 2 45896 #### [facility],[address] [place] [address] Anion gap [Moles/Vol] 7 mmol/L Low 10 - 20 [facility] Comment on above: Performed By: #### 2 28090 #### [facility],[address] [place] [address] AST [Catalytic activity/Vol] 34 U/L Normal 15 - 37 [facility] Comment on above: Performed By: #### 2 24470 #### [facility],[address] [place] [address] B/C RATIO 18 ratio Normal 0 - 30 [facility] Comment on above: Performed By: #### 2 55069 #### [facility],[address] [place] [address] Bilirubin [Mass/Vol] 1.1 mg/dL High 0.2 - 1.0 [facility] Comment on above: Performed By: #### 2 46889 #### [facility],[address] [place] [address] Calcium [Mass/Vol] 8.8 mg/dL Normal 8.5 - 10.1 [facility] Comment on above: Performed By: #### 2 33330 #### [facility],[address] [place], [place] [id number] Chloride [Moles/Vol] 106 mmol/L Normal 98 - 107 [facility] Comment on above: Performed By: #### 2 73314 #### [facility],[address] [place] [place], [place] [id number] CMP with eGFR Normal [facility] Comment on above: Result Comment: COMP REHENSIVE METABOLIC PANEL Performed By: #### 2 83196 #### [facility],[address] [place] [address] CO2 [Moles/Vol] 28.8 mmol/L Normal 21.0 - 32.0 [facility] Comment on above: Performed By: #### 2 38896 #### [facility],[address] [place], [place] [address] Creatinine [Mass/Vol] 0.83 mg/dL Normal 0.70 - 1.30 [facility] Comment on above: Performed By: #### 2 62827 #### [facility],[address] [place] [address] 19254 GFR/1.73 sq M.predicted among non-blacks MDRD (S/P/Bld) [Vol rate/Area] mL/min/{1.73_m2} Normal 60 - 999 [facility] Comment on above: Performed By: #### 2 24533 #### [facility],[address] [place] [address] Result Comment: ACCO RDING TO THE NATIONAL KIDNEY DISEASE EDUCATION PROGRAM(NKDE), A NORMAL eGFR IS A VALUE GREATER THAN OR EQUAL TO 60 ML/MIN/1.73 SQ METERS. CHRONIC KIDNEY DISEASE: <60mL/MIN/1.73 SQ METERS KIDNEY FAILURE: <15mL/MIN/1.73 SQ METERS THIS TEST SHOULD ONLY BE USED FOR PATIENTS 18 YEARS OF AGE AND OLDER. Globulin (S) [Mass/Vol] 3.7 g/dL Normal 1.5 - 3.8 [facility] Comment on above: Performed By: #### 2 39478 #### [facility],[address] [place] [address] 19217 Glucose [Mass/Vol] 100 mg/dL Normal 74 - 106 [facility] Comment on above: Performed By: #### 2 27076 #### [facility],[address] [place] [address] 36260 Potassium [Moles/Vol] 4.0 mmol/L Normal 3.5 - 5.1 [facility] Comment on above: Performed By: #### 2 90557 #### [facility],[address] [place] [address] 84400 Protein [Mass/Vol] 7.0 g/dL Normal 6.4 - 8.2 [facility] Comment on above: Performed By: #### 2 95489 #### [facility],[address] [place] [address] 80040 Sodium [Moles/Vol] 138 mmol/L Normal 136 - 145 [facility] Comment on above: Performed By: #### 2 40541 #### [facility],[address] [place] [address] 21071 Urea nitrogen [Mass/Vol] 15 mg/dL Normal 7 - 18 [facility] Comment on above: Performed By: #### 2 03708 #### [facility],[address] [place] [address] 64431 LIPID PROFILEon 09-29-2024 Cholesterol [Mass/Vol] 177 mg/dL Normal 0 - 240 [facility] Comment on above: Performed By: #### 2 30991 #### [facility],[address] [place] [address] 23754 Cholesterol in HDL [Mass/Vol] 42 mg/dL Normal 40 - 60 [facility] Comment on above: Performed By: #### 2 18410 #### [facility],[address] [place] [address] 36485 Cholesterol in LDL [Mass/Vol] 99 mg/dL Normal 0 - 129 [facility] Comment on above: Performed By: #### 2 42838 #### [facility],[address] [place] [address] 46006 Cholesterol.total/Choles terol in HDL [Mass ratio] 4.2 {ratio} Normal 0.0 - 5.0 [facility] Comment on above: Performed By: #### 2 60403 #### [facility],[address] [place] [address] 69720 Lipid [address] [facility] Comment on above: Result Comment: LIPI D PROFILE Performed By: #### 2 75285 #### [facility],[address] [place] [address] 23894 Triglyceride [Mass/Vol] 181 mg/dL High 0 - 150 [facility] Comment on above: Performed By: #### 2 71273 #### [facility],[address] [place] [address] 66354 TSHon 09-29-2024 TSH Qn 1.19 m[IU]/L Normal 0.35 - 3.74 [facility] Comment on above: Performed By: #### 2 46669 #### [facility],[address] [place] [address] 60382 VITAMIN D, 25 HYDROXYon 05-0 VitD 52.70 ng/mL Normal 30.00 - 100 [facility] Comment on above: Result Comment: 25-O HD3 indicates both endogenous production and supplementation. 25-OHD2 is an indicator of exogenous sources, such as diet or supplementation. Therapy is based on measurement of Total 25-OHD, with levels <20 ng/mL indicative of Vitamin D deficiency, while levels between 20 ng/mL and 30 ng/mL suggest insufficiency. Optimal levels are >=30ng/mL. Vitamin D, 25-OH D3 Not Established Vitamin D, 25-OH D2 Not Established Performed By: #### 2 46616 #### [facility],[address] [facility] [address] LABORATORYOrdered By: SYSTEM SYSTEM on 09-23-2024 Prostate specific Ag [Mass/Vol] 2.51 ng/mL Normal 0.02 - 4.00 ng/mL AH ADM SS Comment on above: Interpretive Data: P atient results determined by assays using different manufacturers for methods may not be comparable. PSAon 09-23-2024 Prostate Specific Antigen 2.51 ng/mL Normal 0.02-4.00 [facility] Comment on above: Result Comment: Abeba ent results determined by assays using different manufacturers for methods may not be comparable. Performed By: #### P SA #### [facility] [address] [place] [address] Radiation Oncology Visiton 0 07-03-2024 Radiation Oncology Visit [facility] [address] [place] [address] 68[address] OFFICE VISIT Date of Service: 07/03/24 1011 MR#: [id number] Acct: [id number] Name: AMINATA GAY Rep #: [id number] : 1950 From: Silviano Jones DO Age/Sex: 74/M Location: [facility] [place] Status: Signed Intake Vital Signs 12/27/23 13:27 07/03/24 10:20 07/03/24 10:20 Height 5 ft 9 in 5 ft 9 in 5 ft 9 in Weight: 229 lb 2 oz 232 lb 9 oz BMI 33.8 34.3 BP 139/75 H 158/84 H Blood Pressure Location Rt brachial Lt brachial Position Sitting Sitting Respiration 18 18 Pulse 86 68 Pulse Source Monitor Monitor Temp 98.1 F 97.2 F L Temperature Source Temporal Artery Temporal Artery Pulse Oximetry (%) 93 95 Oxygen Delivery Method room air room air Intake Visit Reasons: 6 MONTH F/U PROSTATE, PSA PRIOR Allergies Sulfa (Sulfonamide Antibiotics) Allergy (Intermediate, Verified 07/03/24 10:14) Hives chlorhexidine Allergy (Verified 07/03/24 10:14) Rash Medications ???Medication ???Instructions ???Recorded ???Confirmed ???Type metoprolol tartrate 50 mg tablet 50 mg PO BID 06/08/22 07/03/24 His tory omega-3 fatty acids 1,000 mg 1,000 mg PO DAILY 06/08/22 5 History capsule alprazolam 0.25 mg tablet 0.125 mg PO BID PRN anxiety 07/03/24 History ascorbic acid (vitamin C) 1,000 mg 1 g PO DAILY 04/06/23 07/03/24 H istory tablet coenzyme Q10 200 mg capsule (Co 200 mg PO DAILY 04/06/23 07/03/24 History Q-10) losartan 25 mg tablet 25 mg PO DAILY 04/06/23 07/03/24 H istory metronidazole 0.75 % topical gel 1 applic topical BID PRN ROSACEA 1 06/06/22 07/03/24 History vitamin B complex (B 1 tab PO DAILY 04/06/23 07/03/24 H istory Complex-Vitamin B12 tablet) cholecalciferol (vitamin D3) 125 125 mcg PO DAILY 06/14/23 07/03/24 History mcg (5,000 unit) tablet (Vitamin D3) famotidine 20 mg tablet 20 mg PO DAILY PRN GERD 06/14/23 0 07/03/24 History Have you fallen in the past year?: No PFSH PFSH Medical History Blood type O- Wears glasses Anxiety Alcohol use Arthritis Excessive bleeding Migraine with visual aura PONV (postoperative nausea and vomiting) Gastric reflux CPAP (continuous positive airway pressure) dependence Non-smoker Basal cell carcinoma (BCC) Umbilical hernia Elevated PSA Obesity RUPESH (obstructive sleep apnea) HTN (hypertension) Palpitations Fatty liver Cardiac murmur Occlusion and stenosis of bilateral carotid arteries Prostate cancer Seasonal affective disorder Pure hyperglyceridemia HLD (hyperlipidemia) Low HDL (under 40) Home Medications ???Medication ???Instructions ???Recorded ???Last Taken ???Type metoprolol tartrate 50 mg tablet 50 mg PO BID 06/08/22 06/16/23 His tory omega-3 fatty acids 1,000 mg 1,000 mg PO DAILY 06/08/22 Unknown History capsule alprazolam 0.25 mg tablet 0.125 mg PO BID PRN anxiety Unknown History ascorbic acid (vitamin C) 1,000 mg 1 g PO DAILY 04/06/23 Unknown Hi story tablet coenzyme Q10 200 mg capsule (Co 200 mg PO DAILY 04/06/23 Unknown H istory Q-10) losartan 25 mg tablet 25 mg PO DAILY 04/06/23 Unknown Hi story metronidazole 0.75 % topical gel 1 applic topical BID PRN ROSACEA 1 06/06/22 Unknown History vitamin B complex (B 1 tab PO DAILY 04/06/23 Unknown Hi story Complex-Vitamin B12 tablet) cholecalciferol (vitamin D3) 125 125 mcg PO DAILY 06/14/23 Unknown History mcg (5,000 unit) tablet (Vitamin D3) famotidine 20 mg tablet 20 mg PO DAILY PRN GERD 06/14/23 U nknown History Allergy/AdvReac Type Severity Reaction Status Date / Time Sulfa (Sulfonamide Allergy Intermediate Hives Verified 07/03/24 10:14 Antibiotics) chlorhexidine Allergy Rash Verified 07/03/24 10:14 Family History Father Lung cancer Brother Aortic aneurysm Uncle Prostate cancer maternal Other Heart disease Surgical History History of vasectomy History of esophagogastroduodenoscop y History of colonoscopy History of wisdom tooth extraction History of mandibular surgery History of hernia repair H/O prostate biopsy H/O umbilical hernia repair H/O inguinal hernia repair History of tonsillectomy Social History Smoking Status: Never smoker alcohol intake: current alcohol intake frequency: holidays/special occasions only substance use type: does not use Diagnosis: Aminata Gay is a 74-year-old male diagnosed with 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 Normal [facility] PSA,Total- Diagnosticon 02- PSA, DIAGNOSTIC 2.44 ng/mL Normal 0.0-4.0 [facility] Comment on above: Result Comment: This test was performed using the TPSA assay method for the [employer] system. Values obtained with different assay methods cannot be used interchangably. When changing PSA assays in the course of monitoring a patient, additional sequential testing should be carried out to confirm baseline values. Performed By: #### L [phone] #### [facility] [address] [place], [address] US RUQ (GB/PANCREAS)on 04-12 US RUQ (GB/PANCREAS) [address] [address] Patient: AMINATA GAY Phone#: : 1950 Age: 73 Gender: M Pt. Type: Out Account: [id number] Location: [facility] Ordering: CECE BRANCH Exam Date: 04/12/2024/7:50 Family Phys: Charge Code: 748385 Physician: [place] Order #: [id number] Dose#: PROCEDURE: RUQ (GB) ULTRASOUND COMPARISON: [facility], RUQ (GB), 05/07/2022, 7:42. INDICATIONS: Gallbladder sludge FINDINGS: LIVER: Fatty changes present. BILIARY: Echoes in the dependent aspect of the gallbladder is consistent with biliary sludge. Gallbladder wall is normal thickness. The common bile duct is upper limits of normal. Intraductal calculus is not demonstrated. PANCREAS: This is partially obscured by bowel gas. No visible mass, abnormal atrophy, or ductal dilatation. RIGHT KIDNEY: There is a 3.6 centimeter cyst at the upper pole of the right kidney. OTHER: Negative. CONCLUSION: 1. Biliary sludge. 2. Upper pole renal cyst. 3. Common bile duct is at upper normal measuring 7.3 millimeters. DICTATED BY: KAREY PEREIRA MD ON 04/12/2024 AT 11:00 APPROVED BY: KAREY PEREIRA MD ON 04/12/2024 AT 11:[address] [facility] CORTISOL [CCL]on 03-28-2024 Cortisol 4.9 ug/dL Normal 4.8-19.5 [facility] Comment on above: Result Comment: Prov ided reference range is from 6-10 AM sample collection time. Cortisol Reference Range: 6-10 AM = 4.8-19.5 ug/dL, 4-8 PM = 2.5-11.9 ug/dL [facility] [address] [place] [address] Brijesh Pizano III, M.D. [id number] Performed By: #### 2 97822 #### [facility],[address] [place] [address] CBC + DIFFon 03-27-2024 Baso # 0.02 x10EE3/UL Normal 0.00 - 0.10 [facility] Comment on above: Performed By: #### 2 58188 #### [facility],[address] [place] [address] Basophils/100 WBC (Bld) 0.3 % Normal 0.0 - 2.0 [facility] Comment on above: Performed By: #### 2 53132 #### [place] [address] CBC + DIFF Normal [facility] Comment on above: Result Comment: CBC- COMPLETE BLOOD COUNT Performed By: #### 2 74190 #### [place] [address] EO # 0.15 x10EE3/UL Normal 0.00 - 0.50 [facility] Comment on above: Performed By: #### 2 67827 #### [facility],[address] [place], [place] [address] Eosinophils/100 WBC (Bld) 3.1 % Normal 0.0 - 7.0 [facility] Comment on above: Performed By: #### 2 87469 #### [place] [address] Erythrocyte distribution width (RBC) [Ratio] 13.4 % Normal 12.0 - 15.6 [facility] Comment on above: Performed By: #### 2 86820 #### [place] [address] Hematocrit (Bld) [Volume fraction] 47.1 % Normal 40.0 - 52.0 [facility] Comment on above: Performed By: #### 2 19650 #### [facility],[address] [place] [address] 58131 Hemoglobin (Bld) [Mass/Vol] 15.9 g/dL Normal 13.0 - 17.5 [facility] Comment on above: Performed By: #### 2 74246 #### [facility],[address] [place], [place] [address] Lymph # 1.39 x10EE3/UL Normal 0.80 - 2.80 [facility] Comment on above: Performed By: #### 2 55585 #### [facility],[address] [place], [place] [address] Lymphocytes/100 WBC (Bld) 28.0 % Normal 20.0 - 45.0 [facility] Comment on above: Performed By: #### 2 23385 #### [facility],[address] [place] [address] 13593 MANUAL DIFF N/A Normal [facility] Comment on above: Performed By: #### 2 74758 #### [facility],[address] [place] [address] 83681 MCH (RBC) [Entitic mass] 31 pg Normal 27 - 33 [facility] Comment on above: Performed By: #### 2 69711 #### [facility],[address] [place] [address] 94896 MCHC 34 X10 3 Normal 32 - 36 [facility] Comment on above: Performed By: #### 2 76898 #### [facility],[address] [place] [address] 60670 MCV (RBC) [Entitic vol] 93 fL Normal 81 - 98 [facility] Comment on above: Performed By: #### 2 88484 #### [facility],[address] [place] [address] 68871 Nash # 0.55 x10EE3/UL Normal 0.20 - 1.00 [facility] Comment on above: Performed By: #### 2 85173 #### [address] [address] MONOS % 11.0 % High 0.0 - 10.0 [facility] Comment on above: Performed By: #### 2 36918 #### [facility],[address] [place] [address] Morphology Shady (Bld) [Interp] N/A Normal [facility] Comment on above: Performed By: #### 2 76639 #### [place] [address] Neut # 2.85 x10EE3/UL Normal 1.50 - 7.10 [facility] Comment on above: Performed By: #### 2 91881 #### [place] [address] Neutrophils/100 WBC (Bld) 57.6 % Normal 46.0 - 76.0 [facility] Comment on above: Performed By: #### 2 48774 #### [place] [address] PLATELET 155 x10EE3/UL Normal 150 - 450 [facility] Comment on above: Performed By: #### 2 03120 #### [place] [address] Platelet mean volume (Bld) [Entitic vol] 9.2 fL Normal 6.4 - 10.5 [facility] Comment on above: Result Comment: AUTO MATED DIFFERENTIAL Performed By: #### 2 86167 #### [place] [address] RBC 5.08 x 10EE6/UL Normal 4.50 - 6.00 [facility] Comment on above: Performed By: #### 2 35779 #### [address],[place] [address] WBC 5.0 x 10EE3/UL Normal 4.5 - 10.8 [facility] Comment on above: Performed By: #### 2 19770 #### [facility],[address] [place] [address] 64680 CMP with eGFRon 03-27-[address]24 AGE [address] [facility] Comment on above: Performed By: #### 2 30002 #### [facility],[address] [place] [address] 76384 Albumin [Mass/Vol] 3.5 g/dL Normal 3.4 - 5.0 [facility] Comment on above: Performed By: #### 2 20038 #### [facility],[address] [place] [address] 85205 Albumin/Globulin [Mass ratio] 1.2 {ratio} Normal 0.9 - 1.6 [facility] Comment on above: Performed By: #### 2 89741 #### [facility],[address] [place] [address] 53885 ALK PHOS 93 U/L Normal 46 - 116 [facility] Comment on above: Performed By: #### 2 94291 #### [facility],[address] [place] [address] 73478 ALT [Catalytic activity/Vol] 49 U/L Normal 16 - 63 [facility] Comment on above: Performed By: #### 2 13629 #### [facility],[address] [place] [address] 48008 Anion gap [Moles/Vol] 13 mmol/L Normal 10 - 20 [facility] Comment on above: Performed By: #### 2 15709 #### [facility],[address] [place] [address] 09456 AST [Catalytic activity/Vol] 35 U/L Normal 15 - 37 [facility] Comment on above: Performed By: #### 2 58449 #### [facility],[address] [place] [address] 93109 B/C RATIO 19 ratio Normal 0 - 30 [facility] Comment on above: Performed By: #### 2 68938 #### [facility],[address] [place] [address] 03998 Bilirubin [Mass/Vol] 0.9 mg/dL Normal 0.2 - 1.0 [facility] Comment on above: Performed By: #### 2 86748 #### [facility],[address] [place] [address] 95511 Calcium [Mass/Vol] 8.6 mg/dL Normal 8.5 - 10.1 [facility] Comment on above: Performed By: #### 2 41261 #### [facility],[address] [place] [address] 65724 Chloride [Moles/Vol] 106 mmol/L Normal 98 - 107 [facility] Comment on above: Performed By: #### 2 10132 #### [facility],[address] [place] [address] 12317 CMP with eGFR Normal [facility] Comment on above: Result Comment: COMP REHENSIVE METABOLIC PANEL Performed By: #### 2 29573 #### [facility],[address] [place] [address] 96466 CO2 [Moles/Vol] 25.4 mmol/L Normal 21.0 - 32.0 [facility] Comment on above: Performed By: #### 2 97157 #### [facility],[address] [place] [address] 21241 Creatinine [Mass/Vol] 0.90 mg/dL Normal 0.70 - 1.30 [facility] Comment on above: Performed By: #### 2 65090 #### [facility],[address] [place] [address] 79419 GFR/1.73 sq M.predicted among non-blacks MDRD (S/P/Bld) [Vol rate/Area] mL/min/{1.73_m2} Normal 60 - 999 [facility] Comment on above: Performed By: #### 2 31899 #### [facility],[address] [place] [address] 88917 Result Comment: ACCO RDING TO THE NATIONAL KIDNEY DISEASE EDUCATION PROGRAM(NKDE), A NORMAL eGFR IS A VALUE GREATER THAN OR EQUAL TO 60 ML/MIN/1.73 SQ METERS. CHRONIC KIDNEY DISEASE: <60mL/MIN/1.73 SQ METERS KIDNEY FAILURE: <15mL/MIN/1.73 SQ METERS THIS TEST SHOULD ONLY BE USED FOR PATIENTS 18 YEARS OF AGE AND OLDER. Globulin (S) [Mass/Vol] 3.0 g/dL Normal 1.5 - 3.8 [facility] Comment on above: Performed By: #### 2 01314 #### [facility],[address] [place] [address] 76400 Glucose [Mass/Vol] 97 mg/dL Normal 74 - 106 [facility] Comment on above: Performed By: #### 2 79554 #### [facility],[address] [place] [address] 82440 Potassium [Moles/Vol] 4.2 mmol/L Normal 3.5 - 5.1 [facility] Comment on above: Performed By: #### 2 32742 #### [facility],[address] [place] [address] 44425 Protein [Mass/Vol] 6.5 g/dL Normal 6.4 - 8.2 [facility] Comment on above: Performed By: #### 2 09020 #### [facility],[address] [place] [address] 05756 Sodium [Moles/Vol] 140 mmol/L Normal 136 - 145 [facility] Comment on above: Performed By: #### 2 21173 #### [facility],[address] [place] [address] 24848 Urea nitrogen [Mass/Vol] 17 mg/dL Normal 7 - 18 [facility] Comment on above: Performed By: #### 2 60318 #### [facility],[address] [place] [address] 32948 Erich Wardflorentin-Saraon 03-27-20 Cortisol [Mass/Vol] 4.9 ug/dL Normal 4.8-19.5 [facility] Comment on above: Order Comment: Speci men Type: BLOOD SPECIMEN Ordering Facility: [facility] Address: [address] [place] [address] Result Comment: Prov ided reference range is from 6-10 AM sample collection time. Cortisol Reference Range: 6-10 AM = 4.8-19.5 ug/dL, 4-8 PM = 2.5-11.9 ug/dL Performed By: #### 2 143-6 #### [facility] CLIA [id number] [address] [place] [address] STATES OF [facility] LIPID PROFILEon 03-27-2024 Cholesterol [Mass/Vol] 177 mg/dL Normal 0 - 240 [facility] Comment on above: Performed By: #### 2 14707 #### [facility],[address] [place] [address] 58321 Cholesterol in HDL [Mass/Vol] 50 mg/dL Normal 40 - 60 [facility] Comment on above: Performed By: #### 2 42847 #### [facility],[address] [place] [address] 71112 Cholesterol in LDL [Mass/Vol] 93 mg/dL Normal 0 - 129 [facility] Comment on above: Performed By: #### 2 39424 #### [facility],[address] [place] [address] 98101 Cholesterol.total/Choles terol in HDL [Mass ratio] 3.5 {ratio} Normal 0.0 - 5.0 [facility] Comment on above: Performed By: #### 2 05362 #### [facility],[address] [place] [address] 90767 Lipid [address] [facility] Comment on above: Result Comment: LIPI D PROFILE Performed By: #### 2 99303 #### [facility],[address] [place] [address] 07276 Triglyceride [Mass/Vol] 168 mg/dL High 0 - 150 [facility] Comment on above: Performed By: #### 2 13563 #### [facility],[address] [place] [address] 00711 TSHon 03-27-2024 TSH Qn 1.02 m[IU]/L Normal 0.35 - 3.74 [facility] Comment on above: Performed By: #### 2 52440 #### [facility],[address] [place] [address] 92541 VITAMIN D, 25 HYDROXYon VitD 60.30 ng/mL Normal 30.00 - 100 [facility] Comment on above: Result Comment: 25-O HD3 indicates both endogenous production and supplementation. 25-OHD2 is an indicator of exogenous sources, such as diet or supplementation. Therapy is based on measurement of Total 25-OHD, with levels <20 ng/mL indicative of Vitamin D deficiency, while levels between 20 ng/mL and 30 ng/mL suggest insufficiency. Optimal levels are >=30ng/mL. Vitamin D, 25-OH D3 Not Established Vitamin D, 25-OH D2 Not Established Performed By: #### 2 46983 #### [facility],[address] [place] [address] 61411 LABORATORYOrdered By: SYSTEM SYSTEM on 03-18-2024 Prostate specific Ag [Mass/Vol] 1.35 ng/mL Normal 0.02 - 4.00 ng/mL [facility] Comment on above: Interpretive Data: P atient results determined by assays using different manufacturers for methods may not be comparable. PSAon 03-18-2024 Prostate Specific Antigen 1.35 ng/mL Normal 0.02-4.00 [facility] Comment on above: Result Comment: Abeba ent results determined by assays using different manufacturers for methods may not be comparable. Performed By: #### P #### [place] [address] Gastroenterology Visit Repor ton 12-27-2023 Gastroenterology Visit Report [facility]enter[facility] [address] [place] [address] OFFICE VISIT Date of Service: 12/27/23 MR#: [id number] Acct: [id number] Name: AMINATA GAY Rep #: [id number] : 1950 Provider: Derrell Richards, Age/Sex: 73/M [place] [facility] [place] Status: Signed Intake Vital Signs 06/16/23 06:46 08/16/23 13:02 Height 5 ft 9 in 5 ft 9 in Intake Visit Reasons: 6 M FU Chief Complaint: 4 mo fu GERD Allergies Sulfa (Sulfonamide Antibiotics) Allergy (Intermediate, Verified 08/16/23 13:02) Hives chlorhexidine Allergy (Verified 08/16/23 13:02) Rash Medications ???Medication ???Instructions ???Recorded ???Confirmed ???Type metoprolol tartrate 50 mg tablet 50 mg PO BID 06/08/22 12/27/23 History omega-3 fatty acids 1,000 mg 1,000 mg PO DAILY 06/08/22 12/27/23 History capsule alprazolam 0.25 mg tablet 0.125 mg PO BID PRN anxiety 04/06/23 12/27/23 History ascorbic acid (vitamin C) 1,000 mg 1 g PO DAILY 04/06/23 12/27/23 History tablet coenzyme Q10 200 mg capsule (Co 200 mg PO DAILY 04/06/23 12/27/23 History Q-10) losartan 25 mg tablet 25 mg PO DAILY 04/06/23 12/27/23 History metronidazole 0.75 % topical gel 1 applic topical BID PRN ROSACEA 04/06/23 12/27/23 History vitamin B complex (B 1 tab PO DAILY 04/06/23 12/27/23 History Complex-Vitamin B12 tablet) cholecalciferol (vitamin D3) 125 125 mcg PO DAILY 06/14/23 12/27/23 History mcg (5,000 unit) tablet (Vitamin D3) famotidine 20 mg tablet 20 mg PO DAILY PRN GERD 06/14/23 12/27/23 History Have you fallen in the past year?: No PFSH Medical History Alcohol use Anxiety Arthritis Basal cell carcinoma (BCC) Blood type O- Cardiac murmur CPAP (continuous positive airway pressure) dependence Elevated PSA Excessive bleeding Fatty liver Gastric reflux HLD (hyperlipidemia) HTN (hypertension) Low HDL (under 40) Migraine with visual aura Non-smoker Obesity Occlusion and stenosis of bilateral carotid arteries RUPESH (obstructive sleep apnea) Palpitations PONV (postoperative nausea and vomiting) Prostate cancer Pure hyperglyceridemia Seasonal affective disorder Umbilical hernia Wears glasses Surgical History H/O inguinal hernia repair H/O prostate biopsy H/O umbilical hernia repair History of colonoscopy History of esophagogastroduodenoscop y History of hernia repair History of mandibular surgery History of tonsillectomy History of vasectomy History of wisdom tooth extraction Family History Father Lung cancer Brother Aortic aneurysm Uncle Prostate cancer maternal Other Heart disease Social History Smoking Status: Never smoker alcohol intake: current alcohol intake frequency: holidays/special occasions only substance use type: does not use HPI HPI Chief Complaint: 4 mo fu GERD Details: AMINATA GAY, is a 73 M who presents to the office today for follow up. PMH hyperlipidemia/hypertrigl yceridemia/low HDL; SAD; cardiac murmur; HTN; anxiety/panic attacks. PCP OV noting RUQ abdominal discomfort. US RUQ 12.15.22 noting fatty changes of the liver; gallbladder fluid levels consistent with sludge without inflammation of ductal dilation. *BGI established 3.30.23 Reports he has had symptoms since high school: told he has a nervous stomach and IBS. Currently taking famotidine OTC PRN for flares of reflux. he noted his stools changed to be a light color with appearance of oil floating, this spontaneously resolves and recurs; OTC digestive enzymes started and feels these are helpful. He does not like taking medications and notes sensitivity to medications (reduce doses). ? Biochemical ESR, CRP, Vit B12, Vit D25, RAST, ANCA, celiac, GAME, JHONATHAN, IBD without pertinent abnormality. ? Stool calprotectin, elastase, lactoferrin, EP, C.Diff (Formed), occult, O/P, giardia WNL.? Total fats H ? GET 09.07.22 31.71 minutes (12-56) Contact 09.08.22 with result update to report that he was having significant issue with reflux; famotidine has been somewhat effective but would like to attempt protonix two times a day Contact 10.13.22 with diarrhea difficulty with use of PPI. When symptoms are severe, he uses OTC famotidine for several days which he finds helpful. Upper GI SBFT versus EGD offered; he would like to wait until his clinic visit prior to making a decision. OV 8 ongoing acid reflux. Protonix caused loose stools; famotidine taken PRN. Ongoing floating stools. Start Creon, sucralfate O (more content not included)... Normal [facility] PSA,Total- Diagnosticon 08-0 PSA, DIAGNOSTIC 1.23 ng/mL Normal 0.0-4.0 [facility] Comment on above: Result Comment: This test was performed using the TPSA assay method for the [employer] chemistry system. Values obtained with different assay methods cannot be used interchangably. When changing PSA assays in the course of monitoring a patient, additional sequential testing should be carried out to confirm baseline values. Performed By: #### L [phone] #### [facility] [address] [place], [address] Radiation Oncology Visiton 0 12-27-2023 Radiation Oncology Visit [facility] [address] [place] [address] OFFICE VISIT Date of Service: 12/27/23 1326 MR#: [id number] Acct: [id number] Name: AMINATA GAY Rep #: [id number] : 1950 From: Silviano Jones DO Age/Sex: 73/M [place] [facility] [place] Status: Signed Intake Vital Signs 08/16/23 13:02 12/27/23 13:27 Height 5 ft 9 in 5 ft 9 in Weight: 230 lb 1 oz 229 lb 2 oz BMI 34.0 33.8 BP 143/74 H 139/75 H Blood Pressure Location Rt brachial Rt brachial Position Sitting Sitting Respiration 16 18 Pulse 80 86 Pulse Source Monitor Monitor Temp 97.2 F L 98.1 F Temperature Source Temporal Artery Temporal Artery Pulse Oximetry (%) 93 93 Oxygen Delivery Method room air room air Intake Visit Reasons: 3 MONTH PROSTATE, PSA PRIOR Is patient in pain?: No Allergies Sulfa (Sulfonamide Antibiotics) Allergy (Intermediate, Verified 12/27/23 13:39) Hives chlorhexidine Allergy (Verified 12/27/23 13:39) Rash Medications ???Medication ???Instructions ???Recorded ???Confirmed ???Type metoprolol tartrate 50 mg tablet 50 mg PO BID 06/08/22 12/27/23 History omega-3 fatty acids 1,000 mg 1,000 mg PO DAILY 06/08/22 12/27/23 History capsule alprazolam 0.25 mg tablet 0.125 mg PO BID PRN anxiety 04/06/23 12/27/23 History ascorbic acid (vitamin C) 1,000 mg 1 g PO DAILY 04/06/23 12/27/23 History tablet coenzyme Q10 200 mg capsule (Co 200 mg PO DAILY 04/06/23 12/27/23 History Q-10) losartan 25 mg tablet 25 mg PO DAILY 04/06/23 12/27/23 History metronidazole 0.75 % topical gel 1 applic topical BID PRN ROSACEA 04/06/23 12/27/23 History vitamin B complex (B 1 tab PO DAILY 04/06/23 12/27/23 History Complex-Vitamin B12 tablet) cholecalciferol (vitamin D3) 125 125 mcg PO DAILY 06/14/23 12/27/23 History mcg (5,000 unit) tablet (Vitamin D3) famotidine 20 mg tablet 20 mg PO DAILY PRN GERD 06/14/23 12/27/23 History rifaximin 550 mg tablet (Xifaxan) 550 mg PO TID 14 days #42 tabs 12/27/23 12/27/23 Rx Have you fallen in the past year?: No PFSH PFSH Medical History Blood type O- Wears glasses Anxiety Alcohol use Arthritis Excessive bleeding Migraine with visual aura PONV (postoperative nausea and vomiting) Gastric reflux CPAP (continuous positive airway pressure) dependence Non-smoker Basal cell carcinoma (BCC) Umbilical hernia Elevated PSA Obesity RUPESH (obstructive sleep apnea) HTN (hypertension) Palpitations Fatty liver Cardiac murmur Occlusion and stenosis of bilateral carotid arteries Prostate cancer Seasonal affective disorder Pure hyperglyceridemia HLD (hyperlipidemia) Low HDL (under 40) Home Medications ???Medication ???Instructions ???Recorded ???Last Taken ???Type metoprolol tartrate 50 mg tablet 50 mg PO BID 06/08/22 06/16/23 History omega-3 fatty acids 1,000 mg 1,000 mg PO DAILY 06/08/22 Unknown History capsule alprazolam 0.25 mg tablet 0.125 mg PO BID PRN anxiety 04/06/23 Unknown History ascorbic acid (vitamin C) 1,000 mg 1 g PO DAILY 04/06/23 Unknown History tablet coenzyme Q10 200 mg capsule (Co 200 mg PO DAILY 04/06/23 Unknown History Q-10) losartan 25 mg tablet 25 mg PO DAILY 04/06/23 Unknown History metronidazole 0.75 % topical gel 1 applic topical BID PRN ROSACEA 04/06/23 Unknown History vitamin B complex (B 1 tab PO DAILY 04/06/23 Unknown History Complex-Vitamin B12 tablet) cholecalciferol (vitamin D3) 125 125 mcg PO DAILY 06/14/23 Unknown History mcg (5,000 unit) tablet (Vitamin D3) famotidine 20 mg tablet 20 mg PO DAILY PRN GERD 06/14/23 Unknown History rifaximin 550 mg tablet (Xifaxan) 550 mg PO TID 14 days #42 tabs 12/27/23 Unknown Rx Allergy/AdvReac Type Severity Reaction Status Date / Time Sulfa (Sulfonamide Allergy Intermediate Hives Verified 12/27/23 13:39 Antibiotics) chlorhexidine Allergy Rash Verified 12/27/23 13:39 Family History Father Lung cancer Brother Aortic aneurysm Uncle Prostate cancer maternal Other Heart disease Surgical History History of vasectomy History of esophagogastroduodenoscop y History of colonoscopy History of wisdom tooth extraction History of mandibular surgery History of hernia repair H/O prostate biopsy H/O umbilical hernia repair H/O inguinal hernia repair History of tonsillectomy Social History Smoking Status: Never smoker alcohol intake: current alcohol intake frequency: holidays/special occasions only substance use type: does not use Diagnosis: Aminata Gay is a 73-year-old male diagnosed with unfavorable intermediate ris (more content not included)... Normal [facility] CBC + DIFFon 10-25-2023 Baso # 0.02 x10EE3/UL Normal 0.00 - 0.10 [facility] Comment on above: Performed By: #### 2 [id number] #### [facility],[address] [place] [address] 23853 Basophils/100 WBC (Bld) 0.5 % Normal 0.0 - 2.0 [facility] Comment on above: Performed By: #### 2 68602 #### [facility],[address] [place] [address] 10916 CBC + DIFF Normal [facility] Comment on above: Result Comment: CBC- COMPLETE BLOOD COUNT Performed By: #### 2 83492 #### [facility],[address] [place] [address] 33556 EO # 0.11 x10EE3/UL Normal 0.00 - 0.50 [facility] Comment on above: Performed By: #### 2 78965 #### [facility],[address] [place] [address] 01785 Eosinophils/100 WBC (Bld) 2.1 % Normal 0.0 - 7.0 [facility] Comment on above: Performed By: #### 2 78715 #### [facility],[address] [place] [address] Erythrocyte distribution width (RBC) [Ratio] 13.7 % Normal 12.0 - 15.6 [facility] Comment on above: Performed By: #### 2 11095 #### [facility],[address] [place] [address] Hematocrit (Bld) [Volume fraction] 44.4 % Normal 40.0 - 52.0 [facility] Comment on above: Performed By: #### 2 52222 #### [facility],[address] [place] [address] Hemoglobin (Bld) [Mass/Vol] 15.0 g/dL Normal 13.0 - 17.5 [facility] Comment on above: Performed By: #### 2 30508 #### [facility],[address] [place] [address] Lymph # 1.36 x10EE3/UL Normal 0.80 - 2.80 [facility] Comment on above: Performed By: #### 2 39662 #### [facility],[address] [place] [address] Lymphocytes/100 WBC (Bld) 27.3 % Normal 20.0 - 45.0 [facility] Comment on above: Performed By: #### 2 64936 #### [facility],[address] [place], [place] [id number] MANUAL DIFF N/A Normal [facility] Comment on above: Performed By: #### 2 04352 #### [facility],[address] [place], [place] [id number] MCH (RBC) [Entitic mass] 31 pg Normal 27 - 33 [facility] Comment on above: Performed By: #### 2 32082 #### [place] [address] MCHC 34 X10 3 Normal 32 - 36 [facility] Comment on above: Performed By: #### 2 58950 #### [facility],[address] [place] [address] 24450 MCV (RBC) [Entitic vol] 93 fL Normal 81 - 98 [facility] Comment on above: Performed By: #### 2 24026 #### [facility],[address] [place] [address] 79650 Nash # 0.51 x10EE3/UL Normal 0.20 - 1.00 [facility] Comment on above: Performed By: #### 2 88063 #### [facility],[address] [place] [address]24 MONOS % 10.3 % High 0.0 - 10.0 [facility] Comment on above: Performed By: #### 2 77184 #### [facility],[address] [place] [address] Morphology Shady (Bld) [Interp] N/A Normal [facility] Comment on above: Performed By: #### 2 86491 #### [facility],[address] [place] [address] 54563 Neut # 2.99 x10EE3/UL Normal 1.50 - 7.10 [facility] Comment on above: Performed By: #### 2 25981 #### [facility],[address] [place] [address] 38427 Neutrophils/100 WBC (Bld) 59.9 % Normal 46.0 - 76.0 [facility] Comment on above: Performed By: #### 2 45917 #### [facility],[address] [place] [address] 63879 PLATELET 122 x10EE3/UL Low 150 - 450 [facility] Comment on above: Performed By: #### 2 53473 #### [facility],[address] [place] [address] 30975 Platelet mean volume (Bld) [Entitic vol] 9.5 fL Normal 6.4 - 10.5 [facility] Comment on above: Result Comment: AUTO MATED DIFFERENTIAL Performed By: #### 2 19354 #### [place] [id number] RBC 4.78 x 10EE6/UL Normal 4.50 - 6.00 [facility] Comment on above: Performed By: #### 2 03707 #### [address] [address] WBC 5.0 x 10EE3/UL Normal 4.5 - 10.8 [facility] Comment on above: Performed By: #### 2 23882 #### [facility],[address] [place], [place] [id number] CMP with eGFRon 10-25-20[address] AGE [address] [facility] Comment on above: Performed By: #### 2 40441 #### [place] [address] Albumin [Mass/Vol] 3.4 g/dL Normal 3.4 - 5.0 [facility] Comment on above: Performed By: #### 2 83264 #### [address] [address] Albumin/Globulin [Mass ratio] 1.0 {ratio} Normal 0.9 - 1.6 [facility] Comment on above: Performed By: #### 2 85894 #### [facility],[address] [place] [address] ALK PHOS 103 U/L Normal 46 - 116 [facility] Comment on above: Performed By: #### 2 79627 #### [address] [address] ALT [Catalytic activity/Vol] 52 U/L Normal 16 - 63 [facility] Comment on above: Performed By: #### 2 81479 #### [address] [address] Anion gap [Moles/Vol] 10 mmol/L Normal 10 - 20 [facility] Comment on above: Performed By: #### 2 94325 #### [facility],[address] [place] [address] AST [Catalytic activity/Vol] 27 U/L Normal 15 - 37 [facility] Comment on above: Performed By: #### 2 02648 #### [facility],[address] [place] [address] B/C RATIO 18 ratio Normal 0 - 30 [facility] Comment on above: Performed By: #### 2 31281 #### [facility],[address] [place] [address] Bilirubin [Mass/Vol] 1.1 mg/dL High 0.2 - 1.0 [facility] Comment on above: Performed By: #### 2 38340 #### [facility],[address] [place] [address] Calcium [Mass/Vol] 8.5 mg/dL Normal 8.5 - 10.1 [facility] Comment on above: Performed By: #### 2 21665 #### [facility],[address] [place] [address] Chloride [Moles/Vol] 105 mmol/L Normal 98 - 107 [facility] Comment on above: Performed By: #### 2 67649 #### [facility],[address] [place], [place] [phone] CMP with eGFR Normal [facility] Comment on above: Result Comment: COMP REHENSIVE METABOLIC PANEL Performed By: #### 2 81036 #### [facility],[address] [place], [place] [phone] CO2 [Moles/Vol] 27.4 mmol/L Normal 21.0 - 32.0 [facility] Comment on above: Performed By: #### 2 43569 #### [facility],[address] [place] [address]58 Creatinine [Mass/Vol] 0.79 mg/dL Normal 0.70 - 1.30 [facility] Comment on above: Performed By: #### 2 39922 #### [facility],[address] [place] [address]136 GFR/1.73 sq M.predicted among non-blacks MDRD (S/P/Bld) [Vol rate/Area] mL/min/{1.73_m2} Normal 60 - 999 [facility] Comment on above: Performed By: #### 2 10042 #### [facility],[address] [place] [address] Result Comment: ACCO RDING TO THE NATIONAL KIDNEY DISEASE EDUCATION PROGRAM(NKDE), A NORMAL eGFR IS A VALUE GREATER THAN OR EQUAL TO 60 ML/MIN/1.73 SQ METERS. CHRONIC KIDNEY DISEASE: <60mL/MIN/1.73 SQ METERS KIDNEY FAILURE: <15mL/MIN/1.73 SQ METERS THIS TEST SHOULD ONLY BE USED FOR PATIENTS 18 YEARS OF AGE AND OLDER. Globulin (S) [Mass/Vol] 3.4 g/dL Normal 1.5 - 3.8 [facility] Comment on above: Performed By: #### 2 60891 #### [facility],[address] [place] [address] Glucose [Mass/Vol] 103 mg/dL Normal 74 - 106 [facility] Comment on above: Performed By: #### 2 07420 #### [facility],[address] [place] [address]26 Potassium [Moles/Vol] 3.8 mmol/L Normal 3.5 - 5.1 [facility] Comment on above: Performed By: #### 2 47577 #### [facility],[address] [place] [address]704 Protein [Mass/Vol] 6.8 g/dL Normal 6.4 - 8.2 [facility] Comment on above: Performed By: #### 2 77403 #### [facility],[address] [place] [address] 21329 Sodium [Moles/Vol] 139 mmol/L Normal 136 - 145 [facility] Comment on above: Performed By: #### 2 76579 #### [facility],[address] [place] [address] 10170 Urea nitrogen [Mass/Vol] 14 mg/dL Normal 7 - 18 [facility] Comment on above: Performed By: #### 2 92824 #### [facility],[address] [place] [address]35[address] LIPID PROFILEon 10-25-2023 Cholesterol [Mass/Vol] 170 mg/dL Normal 0 - 240 [facility] Comment on above: Performed By: #### 2 54199 #### [facility],[address] [place] [address]13 Cholesterol in HDL [Mass/Vol] 42 mg/dL Normal 40 - 60 [facility] Comment on above: Performed By: #### 2 11156 #### [facility],[address] [place] [address] Cholesterol in LDL [Mass/Vol] 93 mg/dL Normal 0 - 129 [facility] Comment on above: Performed By: #### 2 18220 #### [facility],[address] [place] [address] Cholesterol.total/Choles terol in HDL [Mass ratio] 4.0 {ratio} Normal 0.0 - 5.0 [facility] Comment on above: Performed By: #### 2 80275 #### [facility],[address] [place] [address] [address] [facility] Comment on above: Result Comment: LIPI D PROFILE Performed By: #### 2 78480 #### [facility],[address] [place] [address] 19590 Triglyceride [Mass/Vol] 177 mg/dL High 0 - 150 [facility] Comment on above: Performed By: #### 2 78246 #### [facility],[address] [place] [address] TSHon 10-25-2023 TSH Qn 1.15 m[IU]/L Normal 0.35 - 3.74 [facility] Comment on above: Performed By: #### 2 08025 #### [facility],[address] [place] [address] 87368 PSAon 09-11-2023 Prostate Specific Antigen 1.73 ng/mL Normal 0.02-4.00 [facility] ([place] Comment on above: Result Comment: Abeba ent results determined by assays using different manufacturers for methods may not be comparable. Performed By: #### P SA ####[place] [address] Radiation Oncology Visiton 0 08-16-2023 Radiation Oncology Visit [facility] [address] [address] OFFICE VISIT Date of Service: 08/16/23 1259 MR#: [id number] Acct: [id number] Name: AMINATA GAY Rep #: [id number] : 1950 From: Silviano Jones DO Age/Sex: 73/M Location[place] [facility] [place] Status: Signed Intake Vital Signs 07/15/23 12:45 08/16/23 13:02 Height 5 ft 9 in 5 ft 9 in Weight: 225 lb 1 oz 230 lb 1 oz BMI 33.2 34.0 BP 159/83 H 143/74 H Blood Pressure Location Rt brachial Rt brachial Position Sitting Sitting Respiration 16 16 Pulse 72 80 Pulse Source Monitor Monitor Temp 97.4 F L 97.2 F L Temperature Source Temporal Artery Temporal Artery Pulse Oximetry (%) 95 93 Oxygen Delivery Method room air room air Intake Visit Reasons: 1 MONTH F/U POST RT Is patient in pain?: No Allergies Sulfa (Sulfonamide Antibiotics) Allergy (Intermediate, Verified 08/16/23 13:02) Hives chlorhexidine Allergy (Verified 08/16/23 13:02) Rash Medications metoprolol tartrate 50 mg tablet 50 mg PO BID 06/08/22 [History Confirmed 08/16/23] omega-3 fatty acids 1,000 mg capsule 1,000 mg PO DAILY 06/08/22 [History Confirmed 08/16/23] alprazolam 0.25 mg tablet 0.125 mg PO BID PRN anxiety 04/06/23 [History Confirmed 08/16/23] ascorbic acid (vitamin C) 1,000 mg tablet 1 g PO DAILY 04/06/23 [History Confirmed 08/16/23] coenzyme Q10 200 mg capsule (Co Q-10) 200 mg PO DAILY 04/06/23 [History Confirmed 08/16/23] losartan 25 mg tablet 25 mg PO DAILY 04/06/23 [History Confirmed 08/16/23] metronidazole 0.75 % topical gel 1 applic topical BID PRN ROSACEA 04/06/23 [History Confirmed 08/16/23] vitamin B complex (B Complex-Vitamin B12 tablet) 1 tab PO DAILY 04/06/23 [History Confirmed 08/16/23] cholecalciferol (vitamin D3) 125 mcg (5,000 unit) tablet (Vitamin D3) 125 mcg PO DAILY 06/14/23 [History Confirmed 08/16/23] famotidine 20 mg tablet 20 mg PO DAILY PRN GERD 06/14/23 [History Confirmed 08/16/23] PFSH [facility] Medical History Alcohol use Anxiety Arthritis Basal cell carcinoma (BCC) Blood type O- Cardiac murmur CPAP (continuous positive airway pressure) dependence Elevated PSA Excessive bleeding Fatty liver Gastric reflux HLD (hyperlipidemia) HTN (hypertension) Low HDL (under 40) Migraine with visual aura Non-smoker Obesity Occlusion and stenosis of bilateral carotid arteries RUPESH (obstructive sleep apnea) Palpitations PONV (postoperative nausea and vomiting) Prostate cancer Pure hyperglyceridemia Seasonal affective disorder Umbilical hernia Wears glasses Home Medications metoprolol tartrate 50 mg tablet 50 mg PO BID 06/08/22 [History Last Taken 06/16/23] omega-3 fatty acids 1,000 mg capsule 1,000 mg PO DAILY 06/08/22 [History Last Taken Unknown] alprazolam 0.25 mg tablet 0.125 mg PO BID PRN anxiety 04/06/23 [History Last Taken Unknown] ascorbic acid (vitamin C) 1,000 mg tablet 1 g PO DAILY 11/14/23 [History Last Taken Unknown] coenzyme Q10 200 mg capsule (Co Q-10) 200 mg PO DAILY 04/06/23 [History Last Taken Unknown] losartan 25 mg tablet 25 mg PO DAILY 04/06/23 [History Last Taken Unknown] metronidazole 0.75 % topical gel 1 applic topical BID PRN ROSACEA 04/06/23 [History Last Taken Unknown] vitamin B complex (B Complex-Vitamin B12 tablet) 1 tab PO DAILY 04/06/23 [History Last Taken Unknown] cholecalciferol (vitamin D3) 125 mcg (5,000 unit) tablet (Vitamin D3) 125 mcg PO DAILY 06/14/23 [History Last Taken Unknown] famotidine 20 mg tablet 20 mg PO DAILY PRN GERD 06/14/23 [History Last Taken Unknown] Allergy/AdvReac Type Severity Reaction Status Date / Time Sulfa (Sulfonamide Allergy Intermediate Hives Verified 08/16/23 13:02 Antibiotics) chlorhexidine Allergy Rash Verified 08/16/23 13:02 Family History Father Lung cancer Brother Aortic aneurysm Uncle Prostate cancer maternal Other Heart disease Surgical History H/O inguinal hernia repair H/O prostate biopsy H/O umbilical hernia repair History of colonoscopy History of esophagogastroduodenoscop y History of hernia repair History of mandibular surgery History of tonsillectomy History of vasectomy History of wisdom tooth extraction Social History Smoking Status: Never smoker alcohol intake: current alcohol intake frequency: holidays/special occasions only substance use type: does not use Diagnosis: Aminata Gay is a 73-year-old male diagnosed with 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 Oncologic History: 09/22/2022: Patient completed MRI prostate with and without contrast.??? This demonstrated a lesion in the left apex posterolateral peripheral zone measuring 6 mm, no extra capsular extension is seen, this is a PI-RADS 3 lesion there is also noted to be a lesion in the left mid posterolateral peripheral zone measuring 5 mm in greatest dimension which is a PI-RADS 3 lesion, no extraprostatic extension noted.??? There is a 2.7 cm utricle cyst present in the seminal vesicles otherwise normal.??? No evidence of lymph node enlargement or other abnormalities. 11/13/2021: TRUS guided prostate biopsy was completed.??? This demonstrated Kuldeep 3+3 adenocarcinoma involving about 60% of 1 core in the left posterior lateral apex, about 40% of 1 core involving the left posterior lateral base, about 2% of 1 core in the left posterior medial apex, about 70% of 1 core at the prostate lesion #1 and about 70% of 1 core in the prostate lesion #2.??? Remaining biopsies were negative. November 2021: GPS score of 24.??? Low likelihood of adverse pathology (24%).??? 14% risk of higher grade disease and 16% of non organ confined disease. 02/10/2023: TRUS guided prostate biopsy was completed.??? Pathology demonstrated Thompson 4+3 adenocarcinoma involving approximately 30% of a left anterior biopsy, Kuldeep 3+4 adenocarcinoma involving about 50% of 1 core in the left posterior lateral base, about 40% of 1 core in the left posterior lateral apex, and Kuldeep 3+3 adenocarcinoma involving about 2% of 1 core in the left posterior medial apex and involving about 20% of 1 core in the right posterior medial base, and about 50 % of 1 core in the left lateral.??? 03/07/2023: CT abdomen/pelvis without contrast was performed.??? This demonstrated no CT evidence for abdominal/pelvic metastatic disease. 03/12/2023: Bone scan was performed.??? This demonstrated no evidence of osseous metastatic disease.??? There is a left calvarial focus of uncertain etiology. 03/31/2023: CT head/brain without contrast was performed.??? This demonstrated no intracranial abnormality or lytic or sclerotic bone lesions.??? No lesions are noted in the area of the calvarium corresponding to the abnormal uptake seen on bone scan. 04/02/2023: Patient was evaluated by urology at [facility].??? Discussed options for surgery and radiation therapy. Radiation Treatment History: None The patient completed a course of external beam radiotherapy in our department. This treatment was delivered for curative intent. Treatment was given according to the following parameters: AMINATA GAY received prostate SBRT consisting of 3625 cGy delivered in 5 fractions with a VMAT plan using 6 MV FFF photons. The patient did not receive concurrent chemotherapy. Date of First Treatment: 07/05/2023 Date of Last Treatment: 07/15/2023 Total Elapsed Days (including weekend and holidays): 10 Missed Treatments: none Response and Tolerance: The patient tolerated this course of radiotherapy well overall. The following radiation related toxicities developed during the course of radiation therapy: * Grade 1-2 worsening urinary toxicity with increased frequency, incomplete emptying, and dysuria Total weight change during therapy: N/A Disposition: The patient tolerated the planned course of radiation therapy well without unexpected toxicity in an appropriate time course. I reviewed management of potential toxicities and discussed expected timing for toxicity resolution. I will have AMINATA follow-up in one month for a routine visit. AMINATA will maintain follow up with all other providers. AMINATA was instructed to call with any further questions or concerns in the interim. If we can provide any further information on this patient's course of care, please do not hesitate to ask. We would like to thank you very much for allowing us to participate in the care of this patient. Sincerely, Silviano Jones DO, MS Hemodialysis Technician, Department of Radiation Oncology [facility] 07/15/23 1400 Date (more content not included)... Normal [facility] Radiation Oncology Visit [facility] [address] [place] [address] OFFICE VISIT Date of Service: 07/15/23 1354 MR#: [id number] Acct: [id number] Name: AMINATA GAY Rep #: [id number] : 1950 From: Silviano Jones DO Age/Sex: 73/M [place] [facility] [place] Status: Signed Intake Vital Signs 06/16/23 06:46 07/15/23 12:45 Height 5 ft 9 in 5 ft 9 in Weight: 225 lb 1 oz BMI 33.2 BP 159/83 H Blood Pressure Location Rt brachial Position Sitting Respiration 16 Pulse 72 Pulse Source Monitor Temp 97.4 F L Temperature Source Temporal Artery Pulse Oximetry (%) 95 Oxygen Delivery Method room air Intake Visit Reasons: OTV Chief Complaint: 4 mo fu GERD Allergies Sulfa (Sulfonamide Antibiotics) Allergy (Intermediate, Verified 07/15/23 12:44) Hives chlorhexidine Allergy (Verified 07/15/23 12:44) Rash Medications metoprolol tartrate 50 mg tablet 50 mg PO BID 06/08/22 [History Confirmed 07/15/23] omega-3 fatty acids 1,000 mg capsule 1,000 mg PO DAILY 06/08/22 [History Confirmed 07/15/23] alprazolam 0.25 mg tablet 0.125 mg PO BID PRN anxiety 04/06/23 [History Confirmed 07/15/23] ascorbic acid (vitamin C) 1,000 mg tablet 1 g PO DAILY 04/06/23 [History Confirmed 07/15/23] coenzyme Q10 200 mg capsule (Co Q-10) 200 mg PO DAILY 04/06/23 [History Confirmed 07/15/23] losartan 25 mg tablet 25 mg PO DAILY 04/06/23 [History Confirmed 07/15/23] metronidazole 0.75 % topical gel 1 applic topical BID PRN ROSACEA 04/06/23 [History Confirmed 07/15/23] vitamin B complex (B Complex-Vitamin B12 tablet) 1 tab PO DAILY 04/06/23 [History Confirmed 07/15/23] cholecalciferol (vitamin D3) 125 mcg (5,000 unit) tablet (Vitamin D3) 125 mcg PO DAILY 06/14/23 [History Confirmed 07/15/23] famotidine 20 mg tablet 20 mg PO DAILY PRN GERD 06/14/23 [History Confirmed 07/15/23] tamsulosin 0.4 mg capsule 0.4 mg PO QHS #30 caps 07/13/23 [Rx Confirmed 07/15/23] PFSH PFS Medical History Alcohol use Anxiety Arthritis Basal cell carcinoma (BCC) Blood type O- Cardiac murmur CPAP (continuous positive airway pressure) dependence Elevated PSA Excessive bleeding Fatty liver Gastric reflux HLD (hyperlipidemia) HTN (hypertension) Low HDL (under 40) Migraine with visual aura Non-smoker Obesity Occlusion and stenosis of bilateral carotid arteries RUPESH (obstructive sleep apnea) Palpitations PONV (postoperative nausea and vomiting) Prostate cancer Pure hyperglyceridemia Seasonal affective disorder Umbilical hernia Wears glasses Home Medications metoprolol tartrate 50 mg tablet 50 mg PO BID 06/08/22 [History Last Taken 06/16/23] omega-3 fatty acids 1,000 mg capsule 1,000 mg PO DAILY 06/08/22 [History Last Taken Unknown] alprazolam 0.25 mg tablet 0.125 mg PO BID PRN anxiety 04/06/23 [History Last Taken Unknown] ascorbic acid (vitamin C) 1,000 mg tablet 1 g PO DAILY 04/06/23 [History Last Taken Unknown] coenzyme Q10 200 mg capsule (Co Q-10) 200 mg PO DAILY 04/06/23 [History Last Taken Unknown] losartan 25 mg tablet 25 mg PO DAILY 04/06/23 [History Last Taken Unknown] metronidazole 0.75 % topical gel 1 applic topical BID PRN ROSACEA 04/06/23 [History Last Taken Unknown] vitamin B complex (B Complex-Vitamin B12 tablet) 1 tab PO DAILY 04/06/23 [History Last Taken Unknown] cholecalciferol (vitamin D3) 125 mcg (5,000 unit) tablet (Vitamin D3) 125 mcg PO DAILY 06/14/23 [History Last Taken Unknown] famotidine 20 mg tablet 20 mg PO DAILY PRN GERD 06/14/23 [History Last Taken Unknown] tamsulosin 0.4 mg capsule 0.4 mg PO QHS #30 caps 07/13/23 [Rx Last Taken Unknown] Allergy/AdvReac Type Severity Reaction Status Date / Time Sulfa (Sulfonamide Allergy Intermediate Hives Verified 07/15/23 12:44 Antibiotics) chlorhexidine Allergy Rash Verified 07/15/23 12:44 Family History Father Lung cancer Brother Aortic aneurysm Uncle Prostate cancer maternal Other Heart disease Surgical History H/O inguinal hernia repair H/O prostate biopsy H/O umbilical hernia repair History of colonoscopy History of esophagogastroduodenoscop y History of hernia repair History of mandibular surgery History of tonsillectomy History of vasectomy History of wisdom tooth extraction Social History Smoking Status: Never smoker alcohol intake: current alcohol intake frequency: holidays/special occasions only substance use type: does not use Stereotactic Body Radiation Therapy Procedure - Prostate: DATE OF PROCEDURE: 07/15/2023 RADIATION ONCOLOGIST: Silviano Jones D.O., M.S. ASSISTANTS: Radiation Physicist PRE-PROCEDURE DIAGNOSIS(ES): Intermedia (more content not included)... Normal [facility] Radiation Oncology Visit [facility] [address] [place] [address] OFFICE VISIT Date of Service: 07/15/23 1241 MR#: [id number] Acct: [id number] Name: VICTOR HUGOAMINATA PAMELA Rep #: [id number] : 1950 From: Silviano Jones DO Age/Sex: 73/M Location: [facility] [place] Status: Signed Intake Vital Signs 06/16/23 06:46 07/15/23 12:45 Height 5 ft 9 in 5 ft 9 in Weight: 225 lb 1 oz BMI 33.2 BP 159/83 H Blood Pressure Location Rt brachial Position Sitting Respiration 16 Pulse 72 Pulse Source Monitor Temp 97.4 F L Temperature Source Temporal Artery Pulse Oximetry (%) 95 Oxygen Delivery Method room air Intake Visit Reasons: OTV Accompanied by: Self Is patient in pain?: No Allergies Sulfa (Sulfonamide Antibiotics) Allergy (Intermediate, Verified 07/15/23 12:44) Hives chlorhexidine Allergy (Verified 07/15/23 12:44) Rash Medications metoprolol tartrate 50 mg tablet 50 mg PO BID 06/08/22 [History Confirmed 07/15/23] omega-3 fatty acids 1,000 mg capsule 1,000 mg PO DAILY 06/08/22 [History Confirmed 07/15/23] alprazolam 0.25 mg tablet 0.125 mg PO BID PRN anxiety 04/06/23 [History Confirmed 07/15/23] ascorbic acid (vitamin C) 1,000 mg tablet 1 g PO DAILY 04/06/23 [History Confirmed 07/15/23] coenzyme Q10 200 mg capsule (Co Q-10) 200 mg PO DAILY 04/06/23 [History Confirmed 07/15/23] losartan 25 mg tablet 25 mg PO DAILY 04/06/23 [History Confirmed 07/15/23] metronidazole 0.75 % topical gel 1 applic topical BID PRN ROSACEA 04/06/23 [History Confirmed 07/15/23] vitamin B complex (B Complex-Vitamin B12 tablet) 1 tab PO DAILY 04/06/23 [History Confirmed 07/15/23] cholecalciferol (vitamin D3) 125 mcg (5,000 unit) tablet (Vitamin D3) 125 mcg PO DAILY 06/14/23 [History Confirmed 07/15/23] famotidine 20 mg tablet 20 mg PO DAILY PRN GERD 06/14/23 [History Confirmed 07/15/23] tamsulosin 0.4 mg capsule 0.4 mg PO QHS #30 caps 07/13/23 [Rx Confirmed 07/15/23] PFSH PFSH Medical History Alcohol use Anxiety Arthritis Basal cell carcinoma (BCC) Blood type O- Cardiac murmur CPAP (continuous positive airway pressure) dependence Elevated PSA Excessive bleeding Fatty liver Gastric reflux HLD (hyperlipidemia) HTN (hypertension) Low HDL (under 40) Migraine with visual aura Non-smoker Obesity Occlusion and stenosis of bilateral carotid arteries RUPESH (obstructive sleep apnea) Palpitations PONV (postoperative nausea and vomiting) Prostate cancer Pure hyperglyceridemia Seasonal affective disorder Umbilical hernia Wears glasses Home Medications metoprolol tartrate 50 mg tablet 50 mg PO BID 06/08/22 [History Last Taken 06/16/23] omega-3 fatty acids 1,000 mg capsule 1,000 mg PO DAILY 06/08/22 [History Last Taken Unknown] alprazolam 0.25 mg tablet 0.125 mg PO BID PRN anxiety 04/06/23 [History Last Taken Unknown] ascorbic acid (vitamin C) 1,000 mg tablet 1 g PO DAILY 04/06/23 [History Last Taken Unknown] coenzyme Q10 200 mg capsule (Co Q-10) 200 mg PO DAILY 04/06/23 [History Last Taken Unknown] losartan 25 mg tablet 25 mg PO DAILY 04/06/23 [History Last Taken Unknown] metronidazole 0.75 % topical gel 1 applic topical BID PRN ROSACEA 04/06/23 [History Last Taken Unknown] vitamin B complex (B Complex-Vitamin B12 tablet) 1 tab PO DAILY 04/06/23 [History Last Taken Unknown] cholecalciferol (vitamin D3) 125 mcg (5,000 unit) tablet (Vitamin D3) 125 mcg PO DAILY 06/14/23 [History Last Taken Unknown] famotidine 20 mg tablet 20 mg PO DAILY PRN GERD 06/14/23 [History Last Taken Unknown] tamsulosin 0.4 mg capsule 0.4 mg PO QHS #30 caps 07/13/23 [Rx Last Taken Unknown] Allergy/AdvReac Type Severity Reaction Status Date / Time Sulfa (Sulfonamide Allergy Intermediate Hives Verified 07/15/23 12:44 Antibiotics) chlorhexidine Allergy Rash Verified 07/15/23 12:44 Family History Father Lung cancer Brother Aortic aneurysm Uncle Prostate cancer maternal Other Heart disease Surgical History H/O inguinal hernia repair H/O prostate biopsy H/O umbilical hernia repair History of colonoscopy History of esophagogastroduodenoscop y History of hernia repair History of mandibular surgery History of tonsillectomy History of vasectomy History of wisdom tooth extraction Social History Smoking Status: Never smoker alcohol intake: current alcohol intake frequency: holidays/special occasions only substance use type: does not use Diagnosis: Aminata Gay is a 73-year-old male diagnosed with 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 Normal [facility] Radiation Oncology Visiton 0 07-13-2023 Radiation Oncology Visit [facility] [address] [place] [address] OFFICE VISIT Date of Service: 07/13/23 1320 MR#: [id number] Acct: [id number] Name: AMINATA GAY Rep #: [id number] : 1950 From: Silviano Jones DO Age/Sex: 73/M [place] [facility] [place] Status: Signed Intake Vital Signs 07/09/23 12:49 Height 5 ft 9 in Intake Visit Reasons: Amb Documentation Chief Complaint: 4 mo fu GERD Allergies Sulfa (Sulfonamide Antibiotics) Allergy (Intermediate, Verified 06/14/23 10:24) Hives chlorhexidine Allergy (Verified 06/14/23 10:24) Rash PFSH [facility] Medical History (Updated 06/28/23 @ 13:13 by Jody Daniel) Alcohol use Anxiety Arthritis Basal cell carcinoma (BCC) Blood type O- Cardiac murmur CPAP (continuous positive airway pressure) dependence Elevated PSA Excessive bleeding Fatty liver Gastric reflux HLD (hyperlipidemia) HTN (hypertension) Low HDL (under 40) Migraine with visual aura Non-smoker Obesity Occlusion and stenosis of bilateral carotid arteries RUPESH (obstructive sleep apnea) Palpitations PONV (postoperative nausea and vomiting) Prostate cancer Pure hyperglyceridemia Seasonal affective disorder Umbilical hernia Wears glasses Allergy/AdvReac Type Severity Reaction Status Date / Time Sulfa (Sulfonamide Allergy Intermediate Hives Verified 06/14/23 10:24 Antibiotics) chlorhexidine Allergy Rash Verified 06/14/23 10:24 Family History Father Lung cancer Brother Aortic aneurysm Uncle Prostate cancer maternal Other Heart disease Surgical History (Updated 01/22/24 @ 10:29 by Peggy Lawson) H/O inguinal hernia repair H/O prostate biopsy H/O umbilical hernia repair History of colonoscopy History of esophagogastroduodenoscop y History of hernia repair History of mandibular surgery History of tonsillectomy History of vasectomy History of wisdom tooth extraction Social History Smoking Status: Never smoker alcohol intake: current alcohol intake frequency: holidays/special occasions only substance use type: does not use Stereotactic Body Radiation Therapy Procedure - Prostate: DATE OF PROCEDURE: 07/13/2023 RADIATION ONCOLOGIST: Silviano Jones D.O., M.S. ASSISTANTS: Radiation Physicist PRE-PROCEDURE DIAGNOSIS(ES): Intermediate risk prostate cancer POST-PROCEDURE DIAGNOSIS(ES): Intermediate risk prostate cancer INDICATIONS FOR PROCEDURE: The patient has clinically localized prostate cancer and has chosen to proceed with definitive Stereotactic Body Radiation Therapy (SBRT). PROCEDURE PERFORMED: Stereotactic body radiation therapy to the prostate CONSENT: Informed consent was obtained prior to the procedure. Procedure risks, benefits, alternatives and expected outcomes were discussed with the patient. All options have been reviewed and consent had been obtained prior to the procedure. Consent(s) were scanned into the electronic medical record. UNIVERSAL PROTOCOL / TIMEOUT: Pre-procedure verification is complete: patient verified and consents confirmed, procedure site was identified, timeout was called before the start of the procedure. ANESTHESIA: None RADIATION DOSE GIVEN: 725 cGy FRACTION: 4 of 5 CUMULATIVE DOSE: 2900 cGy PLANNED TOTAL DOSE: 3625 cGy DETAILS OF PROCEDURE: Aminata Gay is a 73 year-old male who presented to our clinic today for the fourth fraction of stereotactic body radiation therapy for clinically localized prostate cancer. The patient reports no interval symptoms or problems since the last evaluation in our department. The patient was aligned in the vac bag on the treatment table. The therapists completed patient positioning. The treatment team then exited the treatment room. After verification of treatment parameters, a cone beam CT scan was obtained and aligned to fiducials. After accurate localization, the treatment proceeded. Treatment was delivered with multiarc VMAT radiation therapy utilizing 6 FFF MV photons. A dose of 725 cGy was delivered. The patient tolerated the procedure well. There were no acute complications, no blood loss, and no specimens were removed. CONDITION: The patient tolerated the procedure well and was in stable condition. ATTESTATION: I was present for all critical portions of the procedure including time out, CBCT and treatment delivery. PLAN: The patient will continue with stereotactic body radiation therapy that will be given 2-3 times per week. A total of 3625 cGy in 5 fractions is planned. Silviano Jones DO, MS Hemodialysis Technician, Department of Radiation Oncology [facility] Coding Level of Care Code Ra (more content not included)... Normal [facility] Basophil percentageOrdered B y: Silviano Jones on 06-23-2023 Basophil percentage < 1.0 mg/dL 0.70-1.30 [facility] No Panel InformationOrdered By: Silviano Deweyston on 06-23-2023 Bedside Estimated GFR (eGFR) > 60.0000 mL/min >[address] [facility] [address] HEAD OR BRAIN W/O CONTRAS Ton 03-31-2023 CT HEAD OR BRAIN W/O CONTRAST ORIGINAL EXAMINATION: CT OF THE HEAD WITHOUT [...] 03/31/2023 6:08:39 PM Ordering Provider: KARRI MENDIOLA [facility]) MS BONE IMAGING WHOLE BODYon 03-12-2023 NM BONE IMAGING WHOLE BODY ORIGINAL EXAMINATION: WHOLE BODY BONE SCAN03/12/2023 12:55 [...] 03/12/2023 4:32:48 PM Ordering Provider: KARRI MENDIOLA [facility] ([place] CT ABDOMEN/PELVIS W/O CONTRA STon 03-08-2023 CT ABDOMEN/PELVIS W/O CONTRAST ORIGINAL EXAMINATION: CT OF THE ABDOMEN AND PELVIS WITHOUT CONTRAST 03/07/2023 10:43 am TECHNIQUE: CT of the abdomen and pelvis was performed without the administration of intravenous contrast. Multiplanar reformatted images are provided for review. Automated exposure control, iterative reconstruction, and/or weight based adjustment of the mA/kV was utilized to reduce the radiation dose to as low as reasonably achievable. COMPARISON: None. HISTORY: ORDERING SYSTEM PROVIDED HISTORY: Reason for Exam: initial staging of GG3 prostate cancer DX WITH PROSTTE CA 1 YR AGO / HAD NEW BIOPSY 3 WEEKS AGO THAT SHOWED MORE CANCER / HAVING BLOOD IN SEMAN SINCE BIOPSY / DR IS ALSO CONCERNED WITH ?UTI FINDINGS: Lower Chest: The visualized lung bases are clear. The visualized cardiac and posterior mediastinal structures are unremarkable. Organs: Within the abdomen, the unenhanced liver, gallbladder, spleen, pancreas and adrenal glands are within normal limits. The unenhanced kidneys are unremarkable. No hydronephrosis, nephrolithiasis or ureterolithiasis is identified. GI/Bowel: The unopacified small bowel is grossly unremarkable. No free fluid or free air is identified. The appendix is seen adjacent to the cecum and appears normal. Retroperitoneum/Peritoneu m: No obvious lymphadenopathy is seen although evaluation is limited by the lack of IV contrast. The abdominal aorta appears normal in caliber. Pelvis: Within the pelvis, the urinary bladder is grossly unremarkable. No gross abnormality of the prostate or seminal vesicles is identified. No evidence of inguinal lymphadenopathy. Bones/Soft Tissues: No acute osseous abnormalities are identified. No dominant lytic or sclerotic bone lesions are identified. IMPRESSION: 1. No CT scan evidence of abdominal/pelvic metastatic disease. 2. No acute process seen in the abdomen/pelvis. Interpreted by: Juan Bower MD Preliminary Report By: Juan Bower MD Electronically signed By Juan Bower MD Dictated Date: 03/08/2023 7:13:20 AM Prelim Date: 03/08/2023 7:15:42 AM Sign Date: 03/08/2023 7:15:42 AM Ordering Provider: KARRI MENDIOLA [facility]) TESTOon 02-27-2023 Testosterone Lvl 348.21 ng/dL Normal 86.98-780. 10 [facility]) Comment on above: Result Comment: Norm al Reference Ranges for Females: Female Premenopause Age 21-60 9.01-47.94 ng/dL Female Postmenopause Age 45-89 <7.00-45.62 ng/dL Performed By: #### T ESTO #### [place] [id number] Final Surgical Pathology Rep binta 02-12-2023 Final Surgical Pathology Report . Pathology Reports Accession: Collected Date/Time: Received Date/Time: Pathologist: [id number] 02/10/2023 16:49 EDT 02/11/2023 07:43 EDT NOLBERTO ORLANDO MD Final Surgical Pathology Report DIAGNOSIS: A. RIGHT POSTEROMEDIAL APEX: - NEGATIVE FOR TUMOR B. RIGHT POSTEROMEDIAL BASE: - ADENOCARCINOMA, PROSTATIC ACINAR TYPE KULDEEP GRADE 3+3 INVOLVING 20% OF THE NEEDLE CORE BIOPSY C. RIGHT POSTEROLATERAL APEX: - NEGATIVE FOR TUMOR D. RIGHT POSTEROLATERAL BASE: - NEGATIVE FOR TUMOR E. RIGHT LATERAL: - NEGATIVE FOR TUMOR F. RIGHT ANTERIOR: - NEGATIVE FOR TUMOR G. LEFT POSTEROMEDIAL APEX: - ADENOCARCINOMA, PROSTATIC ACINAR TYPE, KULDEEP GRADE 3+3 INVOLVING 2% OF THE NEEDLE CORE BIOPSY H. LEFT POSTEROMEDIAL BASE: - NEGATIVE FOR TUMOR I. LEFT POSTEROLATERAL APEX: - ADENOCARCINOMA PROSTATIC ACINAR TYPE KULDEEP GRADE 3+4 INVOLVING APPROXIMATELY 40% OF THE NEEDLE CORE BIOPSY J. LEFT POSTEROLATERAL BASE: - ADENOCARCINOMA, PROSTATIC ACINAR TYPE KULDEEP GRADE 3+4 INVOLVING APPROXIMATELY 50% OF THE NEEDLE CORE BIOPSY K. LEFT LATERAL: - ADENOCARCINOMA PROSTATIC ACINAR TYPE KULDEEP GRADE 3+3 INVOLVING APPROXIMATELY 50% OF THE NEEDLE CORE BIOPSY L. LEFT ANTERIOR: - ADENOCARCINOMA, PROSTATIC ACINAR TYPE KULDEEP GRADE 4+3 INVOLVING APPROXIMATELY 30% OF THE NEEDLE CORE BIOPSY CLINICAL INFORMATION: Procedure: TRANSPERINEAL U/S GUIDED PROSTATE BX Preoperative diagnosis: ELEVATED PROSTATE-SPECIFIC ANTIGEN Postoperative diagnosis: ELEVATED PROSTATE-SPECIFIC ANTIGEN SPECIMEN: A PROST, NDLE BX - RIGHT POSTEROMEDIAL APEX B PROST, NDLE BX - RIGHT POSTEROMEDIAL BASE C PROST, NDLE BX - RIGHT POSTEROLATERAL APEX D PROST, NDLE BX - RIGHT POSTEROLATERAL BASE E PROST, NDLE BX - RIGHT LATERAL F PROST, NDLE BX - RIGHT ANTERIOR G PROST, NDLE BX - LEFT POSTEROMEDIAL APEX H PROST, NDLE BX - LEFT POSTEROMEDIAL BASE Pathology Reports Accession: Collected Date/Time: Received Date/Time: Pathologist: [id number] 02/10/2023 16:49 EDT 02/11/2023 07:43 EDT NOLBERTO ORLANDO MD SPECIMEN: I PROST, NDLE BX - LEFT POSTEROLATERAL APEX J PROST, NDLE BX - LEFT POSTEROLATERAL BASE K PROST, NDLE BX - LEFT LATERAL L PROST, NDLE BX - LEFT ANTERIOR GROSS DESCRIPTION: All parts labelled with patient name and [id number] A. Received in formalin labelled right posteromedial apex one woods-white cylindrical prostate core measuring 1.5cm. B. Received in formalin labelled right posteromedial base one woods-white cylindrical prostate core measuring 1.2cm. C. Received in formalin labelled right posterolateral apex one woods-white cylindrical prostate core measuring 0.9cm. D. Received in formalin labelled right posterolateral base two woods-white cylindrical prostate cores measuring 0.3 and 1.0cm. E. Received in formalin labelled right lateral two woods-white cylindrical prostate cores measuring 0.8 and 0.9cm. F. Received in formalin labelled right anterior one woods-white cylindrical prostate core measuring 1.2cm. G. Received in formalin labelled left posteromedial apex one woods-white cylindrical prostate core measuring 1.4cm. H. Received in formalin labelled left posteromedial base one woods-white cylindrical prostate core measuring 0.8cm. I. Received in formalin labelled left posterolateral apex two woods-white cylindrical prostate cores measuring 0.2 and 1.0cm. J. Received in formalin labelled left posterolateral base two woods-white cylindrical prostate cores measuring 0.1 and 1.1cm. K. Received in formalin labelled left lateral two woods-white cylindrical prostate cores measuring 1.4 and 1.5cm. L. Received in formalin labelled left anterior one woods-white cylindrical prostate core measuring 1.4cm. Erika Davies, Grossing Buyer Tobacco Head/ Dr. Nolberto Orlando, Pathologist Dictated by Erika Davies MICROSCOPIC DESCRIPTION: The microscopic examination is performed, except in the case of Gross Only. Electronically Signed by Pathology Report verified by [facility] NOLBERTO ORLANDO Sign out Date: 02/12/2023 12:20 Performing Lab: [facility], [address] [place] [address] Pathology Dept Pathology Reports Accession: Collected Date/Time: Received Date/Time: Pathologist: [id number] 02/10/2023 16:49 EDT 02/11/2023 07:43 EDT NOLBERTO ORLANDO MD Disclaimer If ancillary studies were utilized, the following Laboratory Developed Test (LDT) disclaimer will apply: Under CLIA requirements, [facility] is qualified to perform high complexity testing. For all ancillary stains, positive and negative controls stain appropriately. Performance characteristics of immunohistochemical and chromogenic in-situ hybridization tests have been determined by [facility]. These tests are used for clinical purposes, They should not be regarded as investigational or for research. Normal [facility] ([place]) .Auto Diffon 02-01-2023 Basophil, Absolute 0.1 10 3/mcL Normal 0.0-0.3 [facility] ([place]) Comment on above: Performed By: #### C BC, BMP, GFR, ADIFF, ANEU, PSA #### [address] [address] Basophils/100 WBC (Bld) 0.9 % Normal 0.0-2.5 A [facility] ([place]) Comment on above: Performed By: #### C BC, BMP, GFR, ADIFF, ANEU, PSA #### [address] [address] Eosinophil, Absolute 0.1 10 3/mcL Normal 0.0-0.7 [facility] ([place]) Comment on above: Performed By: #### C BC, BMP, GFR, ADIFF, ANEU, PSA #### [address] [address] Eosinophils/100 WBC (Bld) 1.9 % Normal 0.0-6.0 [facility] ([place]) Comment on above: Performed By: #### C BC, BMP, GFR, ADIFF, ANEU, PSA #### [address] [address] Lymphocyte, Absolute 1.6 10 3/mcL Normal 0.9-4.3 [facility] ([place]) Comment on above: Performed By: #### C BC, BMP, GFR, ADIFF, ANEU, PSA #### [address] [address] Lymphocytes/100 WBC (Bld) 23.5 % Normal 20.0-40.0 [facility] ([place]) Comment on above: Performed By: #### C BC, BMP, GFR, ADIFF, ANEU, PSA #### [address] [address] Monocyte, Absolute 0.7 10 3/mcL Normal 0.1-1.4 [facility] ([place]) Comment on above: Performed By: #### C BC, BMP, GFR, ADIFF, ANEU, PSA #### [address] [address] Monocytes/100 WBC (Bld) 10.2 % Normal 2.0-13.0 A [facility] ([place]) Comment on above: Performed By: #### C BC, BMP, GFR, ADIFF, ANEU, PSA #### [address] [address] Neutrophils/100 WBC (Bld) 63.5 % Normal 50.0-75.0 [facility] ([place]) Comment on above: Performed By: #### C BC, BMP, GFR, ADIFF, ANEU, PSA #### [address] [address] .GFRon 02-01-2023 GFR >60 Normal [facility] ([place]) Comment on above: Result Comment: GFR Population mean for , Non- Americans Ages 20-29 = 116 mL/min/1.73 sq.m. Ages 30-39 = 107 mL/min/1.73 sq.m. Ages 40-49 = 99 mL/min/1.73 sq.m. Ages 50-59 = 93 mL/min/1.73 sq.m. Ages 60-69 = 85 mL/min/1.73 sq.m. Ages 70+ = 75 mL/min/1.73 sq.m. Chronic Kidney Disease: Less than 60 mL/min/1.73 square meters End Stage Renal Disease: Less than 15 mL/min/1.73 square meters Performed By: #### C BC, BMP, GFR, ADIFF, ANEU, PSA ####[address] [address] GFR Non- >60 Normal [facility] ([place]) Comment on above: Result Comment: GFR Population mean for , Non- Americans Ages 20-29 = 116 mL/min/1.73 sq.m. Ages 30-39 = 107 mL/min/1.73 sq.m. Ages 40-49 = 99 mL/min/1.73 sq.m. Ages 50-59 = 93 mL/min/1.73 sq.m. Ages 60-69 = 85 mL/min/1.73 sq.m. Ages 70+ = 75 mL/min/1.73 sq.m. Chronic Kidney Disease: Less than 60 mL/min/1.73 square meters End Stage Renal Disease: Less than 15 mL/min/1.73 square meters Performed By: #### C BC, BMP, GFR, ADIFF, ANEU, PSA ####[address] [address] .NEUABSon 02-01-2023 Neutrophil, Absolute 4.2 10 3/mcL Normal 2.3-8.1 [facility] ([place]) Comment on above: Performed By: #### C BC, BMP, GFR, ADIFF, ANEU, PSA #### [address] [address] BMPon 02-01-2023 BUN/Creatinine Ratio 16.2 ratio Normal 10.0-22.0 [facility] ([place]) Comment on above: Performed By: #### C BC, BMP, GFR, ADIFF, ANEU, PSA #### [address] [address] Calcium [Mass/Vol] 9.3 mg/dL Normal 8.7-10.4 [facility] ([place]) Comment on above: Performed By: #### C BC, BMP, GFR, ADIFF, ANEU, PSA #### [address] [address] Chloride [Moles/Vol] 108 mmol/L Normal 98-110 [facility] ([place]) Comment on above: Performed By: #### C BC, BMP, GFR, ADIFF, ANEU, PSA #### [address] [address] CO2 [Moles/Vol] 29 mmol/L Normal 22-32 [facility] ([place]) Comment on above: Performed By: #### C BC, BMP, GFR, ADIFF, ANEU, PSA #### [address] [address] Creatinine [Mass/Vol] 0.80 mg/dL Normal 0.60-1.40 [facility] ([place]) Comment on above: Performed By: #### C BC, BMP, GFR, ADIFF, ANEU, PSA #### [place] [address] Electrolyte Balance 4.0 mEq/L Normal 4.0-15.0 [facility] ([place]) Comment on above: Performed By: #### C BC, BMP, GFR, ADIFF, ANEU, PSA #### [place] [id number] Glucose [Mass/Vol] 99 mg/dL Normal 82-115 [facility] ([place]) Comment on above: Performed By: #### C BC, BMP, GFR, ADIFF, ANEU, PSA #### [place] [address] Potassium [Moles/Vol] 4.4 mmol/L Normal 3.5-5.0 [facility] ([place]) Comment on above: Performed By: #### C BC, BMP, GFR, ADIFF, ANEU, PSA #### [place] [id number] Sodium [Moles/Vol] 141 mmol/L Normal 136-145 [facility] ([place]) Comment on above: Performed By: #### C BC, BMP, GFR, ADIFF, ANEU, PSA #### [place] [address] Urea nitrogen [Mass/Vol] 13.0 mg/dL Normal 8.0-22.0 [facility] ([place]) Comment on above: Performed By: #### C BC, BMP, GFR, ADIFF, ANEU, PSA #### [place] [id number] CBCon 02-01-2023 Erythrocyte distribution width (RBC) [Ratio] 13.7 % Normal 11.5-15.5 [facility] ([place]) Comment on above: Performed By: #### C BC, BMP, GFR, ADIFF, ANEU, PSA #### [place] [id number] Hematocrit (Bld) [Volume fraction] 46.1 % Normal 40.0-52.0 [facility] ([place]) Comment on above: Performed By: #### C BC, BMP, GFR, ADIFF, ANEU, PSA #### [place] [address] Hgb 15.6 G/dL Normal 13.0-17.5 [facility] ([place]) Comment on above: Performed By: #### C BC, BMP, GFR, ADIFF, ANEU, PSA #### [place] [address] MCH (RBC) [Entitic mass] 31.1 pg Normal 27.0-33.0 [facility] ([place]) Comment on above: Performed By: #### C BC, BMP, GFR, ADIFF, ANEU, PSA #### [place] [address] MCHC 33.8 G/dL Normal 32.0-36.0 [facility] ([place]) Comment on above: Performed By: #### C BC, BMP, GFR, ADIFF, ANEU, PSA #### [place] [address] MCV (RBC) [Entitic vol] 92.0 fL Normal 81.0-100.0 A [facility] ([place]) Comment on above: Performed By: #### C BC, BMP, GFR, ADIFF, ANEU, PSA #### [place] [address] Platelet 140 10 3/mcL Low 150-450 [facility] ([place]) Comment on above: Performed By: #### C BC, BMP, GFR, ADIFF, ANEU, PSA #### [place] [address] Platelet mean volume (Bld) [Entitic vol] 9.8 fL Normal 6.4-10.5 [facility] ([place]) Comment on above: Performed By: #### C BC, BMP, GFR, ADIFF, ANEU, PSA #### [place] [address] RBC 5.01 10 6/mcL Normal 4.50-6.00 [facility] ([place]) Comment on above: Performed By: #### C BC, BMP, GFR, ADIFF, ANEU, PSA #### [address] [address] WBC 6.6 10 3/mcL Normal 4.5-10.8 [facility] ([place]) Comment on above: Performed By: #### C BC, BMP, GFR, ADIFF, ANEU, PSA #### [address] [address] LABORATORYOrdered By: SYSTEM SYSTEM on 02-01-2023 Basophils (Bld) [#/Vol] 0.1 103/mcL Invalid Interpretation Code 0.0 - 0.3 10^3/mcL Workflow SS Basophils/100 WBC (Bld) 0.9 % Invalid Interpretation Code 0.0 - 2.5 % Workflow SS Calcium [Mass/Vol] 9.3 mg/dL Invalid Interpretation Code 8.7 - 10.4 mg/dL ADM SS Chloride [Moles/Vol] 108 mmol/L Invalid Interpretation Code 98 - 110 mEq/L ADM SS CO2 [Moles/Vol] 29 mmol/L Invalid Interpretation Code 22 - 32 mEq/L ADM SS Creatinine [Mass/Vol] 0.80 mg/dL Invalid Interpretation Code 0.60 - 1.40 mg/dL ADM SS Electrolyte Balance 4.0 mEq/L Invalid Interpretation Code 4.0 - 15.0 mEq/L ADM SS Eosinophils (Bld) [#/Vol] 0.1 103/mcL Invalid Interpretation Code 0.0 - 0.7 10^3/mcL Workflow SS Eosinophils/100 WBC (Bld) 1.9 % Invalid Interpretation Code 0.0 - 6.0 % Workflow SS Erythrocyte distribution width (RBC) [Ratio] 13.7 % Invalid Interpretation Code 11.5 - 15.5 % Workflow SS GFR/1.73 sq M.predicted among blacks MDRD (S/P/Bld) [Vol rate/Area] ml/min/1.73sqm Invalid Interpretation Code Chemistry S Comment on above: Interpretive Data: GFR Population mean for , Non- Americans Ages 20-29 = 116 mL/min/1.73 sq.m. Ages 30-39 = 107 mL/min/1.73 sq.m. Ages 40-49 = 99 mL/min/1.73 sq.m. Ages 50-59 = 93 mL/min/1.73 sq.m. Ages 60-69 = 85 mL/min/1.73 sq.m. Ages 70+ = 75 mL/min/1.73 sq.m. Chronic Kidney Disease: Less than 60 mL/min/1.73 square meters End Stage Renal Disease: Less than 15 mL/min/1.73 square meters GFR/1.73 sq M.predicted among non-blacks MDRD (S/P/Bld) [Vol rate/Area] ml/min/1.73sqm Invalid Interpretation Code Chemistry S Comment on above: Interpretive Data: GFR Population mean for , Non- Americans Ages 20-29 = 116 mL/min/1.73 sq.m. Ages 30-39 = 107 mL/min/1.73 sq.m. Ages 40-49 = 99 mL/min/1.73 sq.m. Ages 50-59 = 93 mL/min/1.73 sq.m. Ages 60-69 = 85 mL/min/1.73 sq.m. Ages 70+ = 75 mL/min/1.73 sq.m. Chronic Kidney Disease: Less than 60 mL/min/1.73 square meters End Stage Renal Disease: Less than 15 mL/min/1.73 square meters Glucose [Mass/Vol] 99 mg/dL Invalid Interpretation Code 82 - 115 mg/dL ADM SS Hematocrit (Bld) [Volume fraction] 46.1 % Invalid Interpretation Code 40.0 - 52.0 % Workflow SS Hemoglobin (Bld) [Mass/Vol] 15.6 G/dL Invalid Interpretation Code 13.0 - 17.5 G/dL Workflow SS Lymphocytes (Bld) [#/Vol] 1.6 103/mcL Invalid Interpretation Code 0.9 - 4.3 10^3/mcL Workflow SS Lymphocytes/100 WBC (Bld) 23.5 % Invalid Interpretation Code 20.0 - 40.0 % Workflow SS MCH (RBC) [Entitic mass] 31.1 pg Invalid Interpretation Code 27.0 - 33.0 pg Workflow SS MCHC 33.8 G/dL Invalid Interpretation Code 32.0 - 36.0 G/dL Workflow SS MCV (RBC) [Entitic vol] 92.0 fL Invalid Interpretation Code 81.0 - 100.0 fL AH Workflow SS Monocytes (Bld) [#/Vol] 0.7 103/mcL Invalid Interpretation Code 0.1 - 1.4 10^3/mcL AH Workflow SS Monocytes/100 WBC (Bld) 10.2 % Invalid Interpretation Code 2.0 - 13.0 % AH Workflow SS Neutrophils (Bld) [#/Vol] 4.2 103/mcL Invalid Interpretation Code 2.3 - 8.1 10^3/mcL AH Workflow SS Neutrophils/100 WBC (Bld) 63.5 % Invalid Interpretation Code 50.0 - 75.0 % AH Workflow SS Platelet mean volume (Bld) [Entitic vol] 9.8 fL Invalid Interpretation Code 6.4 - 10.5 fL AH Workflow SS Platelets (Bld) [#/Vol] 140 103/mcL Invalid Interpretation Code 150 - 450 10^3/mcL AH Workflow SS Potassium [Moles/Vol] 4.4 mmol/L Invalid Interpretation Code 3.5 - 5.0 mEq/L AH ADM SS Prostate specific Ag [Mass/Vol] 4.88 ng/mL Invalid Interpretation Code 0.02 - 4.00 ng/mL AH ADM SS Comment on above: Interpretive Data: P atient results determined by assays using different manufacturers for methods may not be comparable. RBC (Bld) [#/Vol] 5.01 106/mcL Invalid Interpretation Code 4.50 - 6.00 10^6/mcL AH Workflow SS Sodium [Moles/Vol] 141 mmol/L Invalid Interpretation Code 136 - 145 mEq/L AH ADM SS Urea nitrogen [Mass/Vol] 13.0 mg/dL Invalid Interpretation Code 8.0 - 22.0 mg/dL AH ADM SS Urea nitrogen/Creatinine [Mass ratio] 16.2 ratio Invalid Interpretation Code 10.0 - 22.0 ratio AH ADM SS WBC (Bld) [#/Vol] 6.6 103/mcL Invalid Interpretation Code 4.5 - 10.8 10^3/mcL AH Workflow SS PSAon 02-01-2023 Prostate Specific Antigen 4.88 ng/mL High 0.02-4.00 [facility] ([place]) Comment on above: Result Comment: Abeba ent results determined by assays using different manufacturers for methods may not be comparable. Performed By: #### C BC, BMP, GFR, ADIFF, ANEU, PSA #### [facility] [address] [place] [address] No Panel InformationOrdered By: Derrell Richards on 09-01-2022 Giardia Antigen (FRED) [facility] Ova and parasitesOrdered By: Derrell Richards on 09-01-2022 Ova and parasites identified LM Nom (Unsp spec) [facility] No Panel InformationOrdered By: Derrell Richards on 08-24-2022 Stool Calprotectin 19 ug/g 0-120 [facility] Comment on above: Concentration Interp retation Follow-Up<16 - 50 ug/g Normal None>50 -120 ug/g Borderline Re-evaluate in 4-6 weeks >120 ug/g Abnormal Repeat as clinically indicatedPerformed at: [facility] [employer] [id number] Director: Jamey Medel PhD, Phone: [phone] at: [facility] [employer] [id number] Director: Janes Barlow MD, Phone: [phone] Stool Neutral Fats Normal . [facility] Comment on above: Normal (<60 Droplets /HPF) Stool Pancreatic Elastase 268 >200 [facility] Comment on above: Result Units: ug Tammie st./g Severe Pancreatic Insufficiency: <100 Moderate Pancreatic Insufficiency: 100 - 200 Normal: >200Performed at: [employer] [id number] Director: Janes Barlow MD, Phone: [phone] Qualitative fecal fat or lip idsOrdered By: Derrell Richards on 08-24-2022 Fat Ql (Stl) Increased . [facility] Comment on above: Normal (<100 Droplet s/HPF) Albumin Elph [Mass/Vol]Order ed By: Derrell Richards on 08-20-2022 Albumin [Mass/Vol] 3.6 g/dL 2.9-4.4 [facility] Atypical perinuclear antineu trophil cytoplasmic antibodies measurementOrdered By: Derrell Richards on 08-20-2022 Neutrophil cytoplasmic Ab.perinuclear.atypical IF (S) [Titer] <1:20 titer Neg:<1:20 [facility] Comment on above: The atypical pANCA p attern has been observed in asignificant percentage of patients with ulcerative colitis,primary sclerosing cholangitis and autoimmune hepatitis.Performed at: [facility] [address] [id number] Director: Jamey Medel PhD, Phone: [phone] at: [facility] [address] [id number] Director: Janes Barlow MD, Phone: [phone] Chocolate RASTOrdered By: Ra sixto Richards on 08-20-2022 Chocolate IgE Qn (S) <0.10 kU/L Class 0 [facility] Comment on above: Performed at: [address] [id number] Director: Janes Barlow MD, Phone: [phone] Erythrocyte sedimentation ra teOrdered By: Derrell Richards on 08-20-2022 ESR (Bld) [Velocity] 6 mm/h 0-20 [facility] Interpretation of serum or p lasma protein pattern by immunofixation (narrative resultOrdered By: Derrell Richards on 08-20-2022 Protein Fractions Immunofixation Shady [Interp] See comment [facility] Comment on above: Result: Not Observed Laboratory - Chemistry and C hemistry - challengeOrdered By: Derrell Richards on 08-20-2022 Cobalamin (Vitamin B12) [Mass/Vol] 755 pg/mL 211-911 [facility] Laboratory - Miscellaneous t estsOrdered By: Derrell Richards on 08-20-2022 Service comment (Unsp spec) [Interp] Comment . [facility] Comment on above: Levels of Specific I gE Class Description of Class ----- < 0.10 0 Negative 0.10 - 0.31 0/I Equivocal/Low 0.32 - 0.55 I Low 0.56 - 1.40 II Moderate 1.41 - 3.90 III High 3.91 - 19.00 IV Very High 19.01 - 100.00 V Very High >100.00 Very High No Panel InformationOrdered By: Derrell Friend on 08-20-2022 Addendum Document Comment . [facility] Comment on above: Protein electrophore sis scan will follow via computer,mail, or pedodontist delivery. Endomysial IgA Antibody Negative Negative [facility] Immunoglobulin E 6 IU/mL 6-495 [facility] Miscellaneous Test See comment [facility] Comment on above: TEST RESULTS LIMITSI BD Expanded PanelgASCA 31 units 0-50 Negative <45 Equivocal 45 - 50 Positive >50ACCA 28 units 0-90 Negative <80 Equivocal 80 - 90 Positive >90ALCA 9 units 0-60 Negative <55 Equivocal 55 - 60 Positive >60AMCA 38 units 0-100 Negative < 90 Equivocal 90 - 100 Positive >100 This test was developed and its performance characteristics determined by [facility]. It has not been cleared or approved by the Food and Drug Administration. The FDA has determined that such clearance or approval is not necessary.Atypical pANCA Negative NegativeCommentsPattern is not suggestive of Inflammatory Bowel Disease TESTING PERFORMED AT [facility]. ORIGINAL REPORT ON FILE IN LAB CONTAINS ADDITIONAL TEST SITE INFORMATION. Scallop Allergen <0.10 kU/L Class 0 [facility] Seafood Group Allergens (RAST) Negative . [facility] Comment on above: Allergens in this mi x are: Blue mussel Fish [place] Shrimp Tuna Sesame Seed Allergen IgE Antibody <0.10 kU/L Class 0 [facility] Shrimp Allergen <0.10 kU/L Class 0 [facility] Vitamin D 25-Hydroxy 46.3 ng/mL [facility] Comment on above: Vitamin D 25(OH) Sta tus Range Deficiency <20 ng/mL (50nmol/L) Insufficiency 20 - 30 ng/mL (50 - 75 nmol/L) Sufficiency 30 - 100 ng/mL (75 - 250 nmol/L) Toxicity >100 ng/mL (>250 nmol/L) Serum IgA measurement (units /volume)Ordered By: Derrell Richards on 08-20-2022 IgA Qn (S) 219 mg/dL 61-437 [facility] Comment on above: Performed at: [address] [id number] Director: Jamey Medel PhD, Phone: [phone] Serum [id number] measu rement by electrophoresisOrdered By: Derrell Richards on 08-20-2022 Alpha 1 globulin Elph [Mass/Vol] 0.2 g/dL 0.0-0.4 [facility] Alpha 1 globulin Elph [Mass/Vol] 0.7 g/dL 0.4-1.0 [facility] Serum beef IgE antibody assa y (units/volume)Ordered By: Derrell Richards on 08-20-2022 Beef IgE Qn (S) <0.10 kU/L Class 0 [facility] Serum black walnut IgE antib shira assay (units/volume)Ordered By: Derrell Richards on 08-20-2022 Black [place] IgE Qn (S) <0.10 kU/L Class 0 [facility] Serum clam IgE antibody assa y (units/volume)Ordered By: Derrell Richards on 08-20-2022 Clam IgE Qn (S) <0.10 kU/L Class 0 [facility] Serum classic neutrophil cyt oplasmic antibody assay (units/volume)Ordered By: Derrell Richards on 08-20-2022 Neutrophil cytoplasmic Ab.classic Qn (S) <1:20 titer Neg:<1:20 [facility] Serum codfish IgE antibody a ssay (units/volume)Ordered By: Derrell Richards on 08-20-2022 Codfish IgE Qn (S) <0.10 kU/L Class 0 [facility] Serum corn IgE antibody assa y (units/volume)Ordered By: Derrell Richards on 08-20-2022 Sturgis IgE Qn (S) <0.10 kU/L Class 0 [facility] Serum cow milk IgE antibody assay (units/volume)Ordered By: Derrell Richards on 08-20-2022 Cow milk IgE Qn (S) <0.10 kU/L Class 0 [facility] Serum egg white IgE antibody assay (units/volume)Ordered By: Derrell Richards on 08-20-2022 Egg white IgE Qn (S) <0.10 kU/L Class 0 [facility] Serum globulin measurement ( mass/volume)Ordered By: Derrell Richards on 08-20-2022 Globulin (S) [Mass/Vol] 3.2 g/dL 2.2-3.9 [facility] Serum or plasma C reactive p rotein measurement (mass/volume)Ordered By: Derrell Richards on 08-20-2022 CRP [Mass/Vol] mg/L 0.0-3.0 [facility] Comment on above: C-Reactive Protein ( CRP) provides useful information for thediagnosis, therapy and monitoring of inflammatory processesand associated diseases. For the evaluation of Relative Riskfor Cardiovascular Disease, a High Sensitivity CRP (HSCRP)should be ordered. Serum or plasma IgG measurem ent (mass/volume)Ordered By: Derrell Richards on 08-20-2022 IgG [Mass/Vol] 1146 mg/dL 603-1613 [facility] Serum or plasma IgM measurem ent (mass/volume)Ordered By: Derrell Richards on 08-20-2022 IgM [Mass/Vol] 113 mg/dL 20-172 [facility] Serum or plasma beta globuli n measurement by electrophoresis (mass/volume)Ordered By: Derrell Richards on 08-20-2022 Beta globulin Elph [Mass/Vol] 1.0 g/dL 0.7-1.3 [facility] Serum or plasma gamma globul in measurement by electrophoresis (mass/volume)Ordered By: Derrell Richards on 08-20-2022 Gamma globulin Elph [Mass/Vol] 1.3 g/dL 0.4-1.8 [facility] Serum or plasma immunoelectr ophoresis interpretation (nominal result)Ordered By: Derrell Richards on 08-20-2022 Interpretation IEP [Interp] Comment . [facility] Comment on above: No monoclonality det ected. Serum peanut IgE antibody as say (units/volume)Ordered By: Derrell Richards on 08-20-2022 Peanut IgE Qn (S) <0.10 kU/L Class 0 [facility] Serum perinuclear neutrophil cytoplasmic antibody titer by immunofluorescenceOrdered By: Derrell Richards on 08-20-2022 Neutrophil cytoplasmic Ab.perinuclear IF (S) [Titer] <1:20 titer Neg:<1:20 [facility] Comment on above: The presence of posi tive fluorescence exhibiting P-ANCA orC-ANCA patterns alone is not specific for the diagnosis ofWegener's Granulomatosis (WG) or microscopic polyangiitis.Decisions about treatment should not be based solely onANCA IFA results. The International ANCA Group Consensusrecommends follow up testing of positive sera with both SD-3 and MPO-ANCA enzyme immunoassays. As many as 5% serumsamples are positive only by EIA. Ref. AM J Clin [id number];111:507-513. Serum pork IgE antibody assa y (units/volume)Ordered By: Derrell Richards on 08-20-2022 Pork IgE Qn (S) <0.10 kU/L Class 0 [facility] Serum soybean IgE antibody a ssay (units/volume)Ordered By: Derrell Richards on 08-20-2022 Soybean IgE Qn (S) <0.10 kU/L Class 0 [facility] Serum tissue transglutaminas e IgA antibody assay (units/volume)Ordered By: Derrell Richards on 08-20-2022 tTG IgA Qn (S) <2 U/mL 0-3 [facility] Comment on above: Negative 0 - 3 Weak Positive 4 - 10 Positive >10 Tissue Transglutaminase (tTG) has been identified as the endomysial antigen. Studies have demonstr- ated that endomysial IgA antibodies have over 99% specificity for gluten sensitive enteropathy. Serum wheat IgE antibody ass ay (units/volume)Ordered By: Derrell Richards on 08-20-2022 Wheat IgE Qn (S) <0.10 kU/L Class 0 [facility] Serum whole egg IgE antibody assay (units/volume)Ordered By: Derrellneeru Richards on 08-20-2022 Whole Egg IgE Qn (S) <0.10 kU/L Class 0 [facility] Thin prep Papanicolaou smear with manual screeningOrdered By: Derrell Friend on 08-20-2022 Thin prep Papanicolaou smear with manual screening 1.2 0.7-1.7 [facility] Total protein bloodOrdered B y: Derrell Friend on 08-20-2022 Protein [Mass/Vol] 6.8 g/dL 6.0-8.5 [facility] LABORATORYOrdered By: SYSTEM SYSTEM on 02-21-2022 Prostate specific Ag [Mass/Vol] 5.23 ng/mL Invalid Interpretation Code 0.02 - 4.00 ng/mL ADM SS LABORATORYOrdered By: SYSTEM SYSTEM on 11-03-2021 Basophils (Bld) [#/Vol] 0.1 103/mcL Invalid Interpretation Code 0.0 - 0.3 10^3/mcL Workflow SS Basophils/100 WBC (Bld) 0.8 % Invalid Interpretation Code 0.0 - 2.5 % Workflow SS Calcium [Mass/Vol] 9.4 mg/dL Invalid Interpretation Code 8.7 - 10.4 mg/dL ADM SS Chloride [Moles/Vol] 109 mmol/L Invalid Interpretation Code 98 - 110 mEq/L ADM SS CO2 [Moles/Vol] 26 mmol/L Invalid Interpretation Code 22 - 32 mEq/L ADM SS Creatinine [Mass/Vol] 0.75 mg/dL Invalid Interpretation Code 0.60 - 1.40 mg/dL ADM SS Electrolyte Balance 5.0 mEq/L Invalid Interpretation Code 4.0 - 15.0 mEq/L ADM SS Eosinophil, Absolute 0.1 103/mcL Invalid Interpretation Code 0.0 - 0.7 10^3/mcL Workflow SS Eosinophils/100 WBC (Bld) 1.7 % Invalid Interpretation Code 0.0 - 6.0 % Workflow SS Erythrocyte distribution width (RBC) [Ratio] 13.9 % Invalid Interpretation Code 11.5 - 15.5 % Workflow SS GFR/1.73 sq M.predicted among blacks MDRD (S/P/Bld) [Vol rate/Area] ml/min/1.73sqm Invalid Interpretation Code Chemistry S GFR/1.73 sq M.predicted among non-blacks MDRD (S/P/Bld) [Vol rate/Area] ml/min/1.73sqm Invalid Interpretation Code Chemistry S Glucose [Mass/Vol] 93 mg/dL Invalid Interpretation Code 82 - 115 mg/dL ADM SS Hematocrit (Bld) [Volume fraction] 44.7 % Invalid Interpretation Code 40.0 - 52.0 % AH Workflow SS Hgb 15.1 G/dL Invalid Interpretation Code 13.0 - 17.5 G/dL AH Workflow SS Lymphocyte, Absolute 1.6 103/mcL Invalid Interpretation Code 0.9 - 4.3 10^3/mcL AH Workflow SS Lymphocytes/100 WBC (Bld) 24.4 % Invalid Interpretation Code 20.0 - 40.0 % AH Workflow SS MCH (RBC) [Entitic mass] 30.8 pg Invalid Interpretation Code 27.0 - 33.0 pg AH Workflow SS MCHC 33.8 G/dL Invalid Interpretation Code 32.0 - 36.0 G/dL AH Workflow SS MCV (RBC) [Entitic vol] 91.2 fL Invalid Interpretation Code 81.0 - 100.0 fL Workflow SS Monocyte distribution width Auto (Bld) [Entitic vol] Not Performed 1 *NA* (11/03/21 9:44 AM) Invalid Interpretation Code 0.00 - 20.00 Hematology S Comment on above: Result Comment: MDW testing performed only on adult ER patients between the ages of 18-89 years. Monocyte, Absolute 0.8 103/mcL Invalid Interpretation Code 0.1 - 1.4 10^3/mcL AH Workflow SS Monocytes/100 WBC (Bld) 11.7 % Invalid Interpretation Code 2.0 - 13.0 % AH Workflow SS Neutrophil, Absolute 4.1 103/mcL Invalid Interpretation Code 2.3 - 8.1 10^3/mcL AH Workflow SS Neutrophils/100 WBC (Bld) 61.4 % Invalid Interpretation Code 50.0 - 75.0 % AH Workflow SS Platelet 154 103/mcL Invalid Interpretation Code 150 - 450 10^3/mcL AH Workflow SS Platelet mean volume (Bld) [Entitic vol] 10.1 fL Invalid Interpretation Code 6.4 - 10.5 fL AH Workflow SS Potassium [Moles/Vol] 4.0 mmol/L Invalid Interpretation Code 3.5 - 5.0 mEq/L AH ADM SS Prostate specific Ag [Mass/Vol] 5.45 ng/mL Invalid Interpretation Code 0.02 - 4.00 ng/mL AH ADM SS RBC 4.90 106/mcL Invalid Interpretation Code 4.50 - 6.00 10^6/mcL AH Workflow SS Sodium [Moles/Vol] 140 mmol/L Invalid Interpretation Code 136 - 145 mEq/L AH ADM SS Urea nitrogen [Mass/Vol] 18.0 mg/dL Invalid Interpretation Code 8.0 - 22.0 mg/dL AH ADM SS Urea nitrogen/Creatinine [Mass ratio] 24.0 ratio Invalid Interpretation Code 10.0 - 22.0 ratio AH ADM SS WBC 6.7 103/mcL Invalid Interpretation Code 4.5 - 10.8 10^3/mcL AH Workflow SS MRI PROSTATE WO/W IVCONon MRI PROSTATE WO/W IVCON * * *Final Repor t* * * DATE OF EXAM: Sep 22 2021 11:05AM [facility] 0751 - MRI PROSTATE WO/W IVCON / PROCEDURE REASON: elevated psa * * * * Physician Interpretation * * * * EXAMINATION: MRI PELVIS WITHOUT AND WITH IV CONTRAST (MULTIPARAMETRIC PROSTATE MRI) CLINICAL HISTORY: 71 years old with elevated PSA Previous biopsy: Not available PSA: None available Prior therapy: None. TECHNIQUE: Multiparametric MRI of the prostate and pelvis performed on a 3T scanner utilizing phase pelvic coil. Sequences obtained: multiplanar T2-WI with small FOV; Axial DWI with multiple B-values and creation of ADC-maps; DCE T1-weighted images through the prostate obtained before, during and after the administration of intravenous gadolinium; prostate dimensions and volume were obtained using a semi-automated software (Cursogram). CONTRAST: IV: 20ml cc of Dotarem. COMPARISON: None RESULT: Prostate: Dimensions: 4.3 x 3.5 x 4.5 cm corresponding to a volume of approximately 35 cc. Post biopsy hemorrhage: Absent Peripheral zone: Linear and/or wedge-shaped T2/ADC map hypointensities (PI-RADS 2). Lesion #1: Location: left apex posterolateral peripheral zone Greatest dimension: 0.6-cm (series:6; image:29) T2-WI: Heterogeneous signal intensity (score 3) DWI/ADC: Focal hypointense on ADC and/or focal hyperintense on high b-value DWI (score 3) DCE: Negative Extra-prostatic extension: Probably absent (capsule contact < 1.5 cm; no capsule irregularity or bulge) PI-RADS assessment category: 3 Lesion #2: Location: left mid posterolateral peripheral zone Greatest dimension: 0.5-cm (series:6; image:27) T2-WI: Linear/wedge-shaped hypointense (score 2) DWI/ADC: Focal hypointense on ADC and/or focal hyperintense on high b-value DWI (score 3) DCE: Negative Extra-prostatic extension: Probably absent (capsule contact < 1.5 cm; no capsule irregularity or bulge) PI-RADS assessment category: 3 Transition zone: There is transition zone hypertrophy, without focal abnormalities suspicious for clinically significant disease (PI-RADS 1). Neurovascular bundle: Unremarkable. Seminal vesicles: A 2.7 cm utricle cyst is present. Symmetric seminal vesicles are patent and otherwise the left vas deferens, possibly the sequela of prior inflammation. . Adjacent Organ Involvement: Not applicable. Lymph nodes: No enlarged pelvic lymph nodes. Bladder: Unremarkable. Pelvic bones: No suspicious pelvic osseous lesions. Other Findings: Small fat-containing left inguinal hernia without evidence of acute inflammation. IMPRESSION: Heterogeneous signal of the prostate, possibly the sequela of prior inflammation. Two very small foci PIRADS 3 in the left apex might represent areas of chronic inflammation or early lesion. Consider correlation with PSA level and follow-up MRI as clinically warranted. Tethering of seminal vesicles to the left vas deferens, possibly sequela of remote inflammation. No pelvic lymphadenopathy. Suspicious osseous lesion within the visualized portions. Number of targets created for MR/US fusion biopsy: Peripheral zone: 2 Transition zone: 0 If present, targets were numbered in order of level of suspicion for clinically significant prostate cancer (Kuldeep score 3 + 4 or higher). PI-RADS v2.1 Assessment Categories: PI-RADS 1: Clinically significant cancer is highly unlikely PI-RADS 2: Clinically significant cancer is unlikely PI-RADS 3: Clinically significant cancer is equivocal PI-RADS 4: Clinically significant cancer is likely PI-RADS 5: Clinically significant cancer is highly likely (V.05) Cotton Grader: NOBLE Transcribe Date/Time: Sep 24 2021 3:32P Dictated by : KOSTA SWANSON MD This examination was interpreted and the report reviewed and electronically signed by: KOSTA SWANSON MD on Sep 24 2021 3:58PM EST [id number] Normal [facility] CCP Antibody, IgGon 02-07-20 20 CCP Antibody, IgG <15 Normal <20 [facility] Comment on above: Performed By: #### R F, PSATF #### [facility] Routine Lab [address] [address] #### CCP #### [facility] Immuno [facility] [address] [address] PSA, Freeon 02-06-2020 PSA, Diagnostic 4.41 ng/mL High 0.00-2.59 [facility] Comment on above: Performed By: #### R F, PSATF #### [facility] Routine Lab [address] [address] #### CCP #### [facility] [address] [address] PSA, Percent Free DO NOT OR 19 % Normal [facility] Comment on above: Performed By: #### R F, PSATF #### [facility] Routine Lab [address] [address] #### CCP #### [facility] [address] [id number] Rheumatoid Factoron 02-06-20 20 Rheumatoid Factor <10 Normal <16 [facility] Comment on above: Performed By: #### R F, PSATF #### [facility] Routine Lab [address] [address] #### CCP #### [facility] [address] [address] PSA, Freeon 09-26-2019 PSA, Diagnostic 4.21 ng/mL High 0.00-2.59 [facility] Comment on above: Performed By: #### P SATF #### [facility] Routine Lab [address] [address] PSA, Percent Free DO NOT OR 24 % Normal [facility] Comment on above: Performed By: #### P SATF #### [facility] Routine Lab [address] [address] Hemoglobin A1con 03-07-2019 HbA1c (Bld) [Mass fraction] 5.5 % Normal 4.3-5.6 [facility] Comment on above: Performed By: #### H BA1C #### [facility] Routine Lab [address] [id number] HbA1c (Bld) [Mass fraction] 111 mg/dL Normal [facility] Comment on above: Performed By: #### H BA1C #### [facility] Routine Lab [address] [place], [place] [address] Vital Signs Date Time Vital Sign Value Performing Clinician Facility 06-16-2023 08:00-0500 Body temperature 97.5 [degF] Dr. Cece Branch Work Phone: [facility] 06-16-2023 08:00-0500 Diastolic blood pressure 61 mm[Hg] Dr. Cece Branch Work Phone: [facility] 06-16-2023 08:00-0500 Heart rate 72 /min Dr. Cece Branch Work Phone: [facility] 06-16-2023 08:00-0500 Respiratory rate 16 /min Dr. Cece Branch Work Phone: [facility] 06-16-2023 08:00-0500 SaO2% (BldA) [Mass fraction] 94 % Dr. Cece Branch Work Phone: [facility] 06-16-2023 08:00-0500 Systolic blood pressure 117 mm[Hg] Dr. Cece Branch Work Phone: [facility] 06-16-2023 06:46-0500 Body height 175.[address] Cece Branch Work Phone: [facility] 06-16-2023 06:46-0500 Body mass index (BMI) [Ratio] 34.2 kg/m2 Dr. Cece Branch Work Phone: [facility] 06-16-2023 06:46-0500 Body weight [address] Cece Branch Work Phone: [facility] 04-26-2023 10:04-0500 Body mass index (BMI) [Ratio] 33.7 kg/m2 Dr. Cece Branch Work Phone: [facility] 04-26-2023 10:04-0500 Body temperature 97.6 [degF] Dr. Cece Branch Work Phone: [facility] 04-26-2023 10:04-0500 Body weight 103.[address] Cece Branch Work Phone: [facility] 04-26-2023 10:04-0500 Diastolic blood pressure 75 mm[Hg] Dr. Cece Branch Work Phone: [facility] 04-26-2023 10:04-0500 Heart rate 67 /min Dr. Cece Branch Work Phone: [facility] 04-26-2023 10:04-0500 Respiratory rate 16 /min Dr. Cece Branch Work Phone: [facility] 04-26-2023 10:04-0500 SaO2% (BldA) [Mass fraction] 95 % Dr. Cece Branch Work Phone: [facility] 04-26-2023 10:04-0500 Systolic blood pressure 158 mm[Hg] Dr. Cece Branch Work Phone: [facility] 02-10-2023 18:25-0400 Body temperature 96.26 [degF] DR KARRI MENDIOLA MD [facility] 02-10-2023 18:25-0400 Diastolic Blood Pressure Non-Invasive [address] KARRI MENDIOLA MD [facility] 02-10-2023 18:25-0400 Heart rate 86 /min DR KARRI MENDIOLA MD [facility] 02-10-2023 18:25-0400 Respiratory rate 16 /min DR KARRI MENDIOLA MD [facility] 02-10-2023 18:25-0400 Systolic Blood Pressure Non-Invasive [address] KARRI MENDIOLA MD [facility] 02-10-2023 17:10-0400 Body temperature 97.52 [degF] DR KARRI MENDIOLA MD [facility] 02-10-2023 17:10-0400 Diastolic Blood Pressure Non-Invasive [address] KARRI MENDIOLA MD [facility] 02-10-2023 17:10-0400 Heart rate 91 /min DR KARRI MENDIOLA MD [facility] 02-10-2023 17:10-0400 Respiratory rate 16 /min DR KARRI MENDIOLA MD [facility] 02-10-2023 17:10-0400 Systolic Blood Pressure Non-Invasive [address] KARRI MENDIOLA MD [facility] 02-10-2023 17:07-0400 Body temperature 97.16 [degF] DR KARRI MENDIOLA MD [facility] 02-10-2023 17:07-0400 Diastolic Blood Pressure Non-Invasive [address] KARRI MENDIOLA MD [facility] 02-10-2023 17:07-0400 Heart rate 93 /min DR KARRI MENDIOLA MD [facility] 02-10-2023 17:07-0400 Mean blood pressure 91 mm[Hg] DR KARRI MENDIOLA MD [facility] 02-10-2023 17:07-0400 Respiratory rate 16 /min DR KARRI MENDIOLA MD [facility] 02-10-2023 17:07-0400 Systolic Blood Pressure Non-Invasive [address] KARRI MENDIOLA MD [facility] 02-10-2023 16:49-0400 Heart rate 89 /min DR KARRI MENDIOLA MD [facility] 02-10-2023 16:49-0400 Mean blood pressure 82 mm[Hg] DR KARRI MENDIOLA MD [facility] 02-10-2023 16:40-0400 Body temperature 97.34 [degF] DR KARRI MENDIOLA MD [facility] 02-10-2023 16:40-0400 Heart rate 83 /min DR KARRI MENDIOLA MD [facility] 02-10-2023 16:40-0400 Mean blood pressure 75 mm[Hg] DR KARRI MENDIOLA MD [facility] 02-10-2023 16:35-0400 Respiratory Rate - Anes 25 br/min DR KARRI MENDIOLA MD [facility] 02-10-2023 16:30-0400 Body temperature 98.13 [degF] DR KARIR MENDIOLA MD [facility] 02-10-2023 16:30-0400 Respiratory Rate - Anes 19 br/min DR KARRI MENDIOLA MD [facility] 02-10-2023 16:25-0400 Body temperature 98.08 [degF] DR KARRI MENDIOLA MD [facility] 02-10-2023 16:25-0400 Respiratory Rate - Anes 13 br/min DR KARRI MENDIOLA MD [facility] 02-10-2023 16:20-0400 Body temperature 97.66 [degF] DR KARRI MENDIOLA MD [facility] 02-10-2023 11:35-0400 Body height 177.[address] KARRI MENDIOLA MD [facility] 02-10-2023 11:35-0400 Body weight 97.[address] KARRI MENDIOLA MD [facility] 02-10-2023 11:35-0400 Heart rate 72 /min DR KARRI MENDIOLA MD [facility] 02-01-2023 11:51-[address] KARRI MENDIOLA MD [facility] 02-01-2023 11:51-[address] KARRI Workman MD [facility] 02-01-2023 11:51-0400 Diastolic Blood Pressure Non-Invasive [address] KARRI MENDIOLA MD [facility] 02-01-2023 11:51-0400 Systolic Blood Pressure Non-Invasive [address] KARRI MENDIOLA MD [facility] 02-01-2023 11:27-[address] KARRI MENDIOLA MD [facility] 02-01-2023 11:27-[address] KARRI Workman MD [facility] 02-01-2023 11:27-0400 Body height [address] KARRI MENDIOLA MD [facility] 02-01-2023 11:27-0400 Body temperature 98.06 [degF] DR KARRI MENDIOLA MD [facility] 02-01-2023 11:27-0400 Body weight 100.[address] KARRI MENDIOLA MD [facility] 02-01-2023 11:27-0400 Diastolic Blood Pressure Non-Invasive [address] KARRI MENDIOLA MD [facility] 02-01-2023 11:27-0400 Heart rate 61 /min DR KARRI MENDIOLA MD [facility] 02-01-2023 11:27-0400 Systolic Blood Pressure Non-Invasive [address] KARRI MENDIOLA MD [facility] 11-13-2021 13:50-0400 Body temperature 97.7 [degF] DR KARRI MENDIOLA MD [facility] 11-13-2021 13:50-0400 Diastolic blood pressure 60 mm[Hg] DR KARRI MENDIOLA MD [facility] 11-13-2021 13:50-0400 Heart rate 78 /min DR KARRI MENDIOLA MD [facility] 11-13-2021 13:50-0400 Respiratory rate 16 /min DR KARRI MENDIOLA MD [facility] 11-13-2021 13:50-0400 Systolic blood pressure 130 mm[Hg] DR KARRI MENDIOLA MD [facility] 11-13-2021 12:30-0400 Body temperature 96.44 [degF] DR KARRI MENDIOLA MD [facility] 11-13-2021 12:30-0400 Diastolic blood pressure 75 mm[Hg] DR KARRI MENDIOLA MD [facility] 11-13-2021 12:30-0400 Heart rate 79 /min DR KARRI MENDIOLA MD [facility] 11-13-2021 12:30-0400 Respiratory rate 16 /min DR KARRI MENDIOLA MD [facility] 11-13-2021 12:30-0400 Systolic blood pressure 130 mm[Hg] DR KARRI MENDIOLA MD [facility] 11-13-2021 12:15-0400 Respiratory rate 16 /min DR KARRI MENDIOLA MD [facility] 11-13-2021 12:11-0400 Diastolic Blood Pressure NBP [address] KARRI MENDIOLA MD [facility] 11-13-2021 12:11-0400 Heart rate 81 /min DR KARRI MENDIOLA MD [facility] 11-13-2021 12:11-0400 Mean blood pressure 76 mm[Hg] DR KARRI MENDIOLA MD [facility] 11-13-2021 12:11-0400 Systolic Blood Pressure NBP [address] KARRI MENDIOLA MD [facility] 11-13-2021 11:56-0400 Diastolic Blood Pressure NBP [address] KARRI MENDIOLA MD [facility] 11-13-2021 11:56-0400 Heart rate 76 /min DR KARRI MENDIOLA MD [facility] 11-13-2021 11:56-0400 Mean blood pressure 79 mm[Hg] DR KARRI MENDIOLA MD [facility] 11-13-2021 11:56-0400 Systolic Blood Pressure NBP [address] KARRI MENDIOLA MD [facility] 11-13-2021 11:41-0400 Body temperature 96.8 [degF] DR KARRI MENDIOLA MD [facility] 11-13-2021 11:41-0400 Diastolic Blood Pressure NBP [address] KARRI MENDIOLA MD [facility] 11-13-2021 11:41-0400 Heart rate 75 /min DR KARRI MENDIOLA MD [facility] 11-13-2021 11:41-0400 Mean blood pressure 73 mm[Hg] DR KARRI MENDIOLA MD [facility] 11-13-2021 11:41-0400 Systolic Blood Pressure NBP [address] KARRI MENDIOLA MD [facility] 11-13-2021 11:30-0400 Body temperature 97.03 [degF] DR KARRI MENDIOLA MD [facility] 11-13-2021 11:25-0400 Body temperature 97.09 [degF] DR KARRI MENDIOLA MD [facility] 11-13-2021 11:20-0400 Body temperature 97.12 [degF] DR KARRI MENDIOLA MD [facility] 11-13-2021 09:25-0400 Body height 177.[address] KARRI MENDIOLA MD [facility] 11-13-2021 09:25-0400 Body temperature 96.98 [degF] DR KARRI MENDIOLA MD [facility] 11-13-2021 09:25-0400 Body weight 98.[address] KARRI MENDIOLA MD [facility] 11-13-2021 09:25-0400 Diastolic blood pressure 86 mm[Hg] DR KARRI MENDIOLA MD [facility] 11-13-2021 09:25-0400 Heart rate 74 /min DR KARRI MENDIOLA MD [facility] 11-13-2021 09:25-0400 Mean blood pressure 111 mm[Hg] DR KARRI MENDIOLA MD [facility] 11-13-2021 09:25-0400 Systolic blood pressure 160 mm[Hg] DR KARRI MENDIOLA MD [facility] 11-03-2021 09:33-0400 Body height 176.[address] KARRI MENDIOLA MD [facility] 11-03-2021 09:33-0400 Body temperature 97.7 [degF] DR KARRI MENDIOLA MD [facility] 11-03-2021 09:33-0400 Body weight 102.[address] KARRI MENDIOLA MD [facility] 11-03-2021 09:33-0400 diastolic 80 mm[Hg] DR KARRI MENDIOLA MD [facility] 11-03-2021 09:33-0400 Heart rate 68 /min DR KARRI MENDIOLA MD [facility] 11-03-2021 09:33-0400 systolic 154 mm[Hg] DR KARRI MENDIOLA MD [facility] Encounters Encounter Date Encounter Type Care Provider Facility Start: 10-31-2024 End: 10-31-2024 ambulatory BRITTNEY GARNER [employer]ER-QC SCIENTIST Facility:A Start: 10-31-2024 End: 10-31-2024 Patient encounter procedure BRITTNEY GARNER [employer]ER-QC SCIENTIST [facility] Start: 10-11-2024 End: 10-11-[address]ANA [facility] Start: 10-02-2024 End: 10-02-[address] KARRI MENDIOLA MD Facility:A Start: 10-02-2024 End: 10-02-[address] KARRI MENDIOLA MD [facility] Start: 09-29-2024 End: 09-29-2024 ambulatory CECE BRANCH [facility] Start: 09-23-2024 End: 09-23-[address] CECE BRANCH MD Facility:A Start: 09-23-2024 End: 09-23-[address] KARRI MENDIOLA MD [facility] Start: 07-03-2024 End: 07-03-2024 ambulatory Cece Branch Facility:[facility] Start: 06-27-2024 ambulatory Cece Branch Facility: [facility] Start: 04-12-2024 End: 04-12-2024 ambulatory CECE YARBROUGH [facility] Start: 04-03-2024 End: 04-03-[address] CECE BRANCH MD Facility:A Start: 04-03-2024 End: 04-03-[address] KARRI MENDIOLA MD [facility] Start: 03-27-2024 End: 03-27-2024 ambulatory CECE YARBROUGH [facility] Start: 03-27-2024 End: 03-27-2024 Encounter for general adult medical examination without abnormal findings CECE YARBROUGH [facility] Start: 03-18-2024 End: 03-18-[address] CECE BRANCH MD Facility:A Start: 03-18-2024 End: 03-18-[address] KARRI MENDIOLA MD [facility] Start: 12-27-2023 End: 12-27-2023 ambulatory Cece Branch Facility:[facility] Start: 12-27-2023 End: 12-27-2023 ambulatory Derrell Richards Facility:[facility] Start: 10-25-2023 End: 10-25-2023 [facility] Start: 09-27-2023 End: 09-28-[address] KARRI MENDIOLA MD Facility:A Start: 09-11-2023 End: 09-12-[address] KARRI MENDIOLA MD Facility:A Start: 08-16-2023 End: 08-16-2023 ambulatory Silviano Jones Facility:[facility] Start: 07-15-2023 End: 07-15-2023 ambulatory Silviano Jones Facility:[facility] Start: 07-13-2023 ambulatory Silviano Jones Facility: [facility] Start: 06-23-2023 End: 06-23-[address] Cece Branch Work Phone: [facility] Work Phone: Start: 06-23-2023 End: 06-23-[address] Cece Branch Work Phone: [facility]-MRI - [facility] Work Phone: Start: 06-23-2023 Non-patient / Non-visit Dr. José Miguel Branch Work Phone: [facility] Start: 06-23-[address] Dustin Branch Work Phone: [facility]-Radiation Oncology Start: 06-16-2023 End: 06-16-2023 Admission to same day surgery center Dr. Cece Branch Work Phone: [facility]-Surgical Day Care Start: 06-16-2023 End: 06-16-[address] Cece Branch Work Phone: [facility] Work Phone: Start: 05-04-2023 End: 05-05-2023 ambulatory BRITTNEY GARNER [employer]-QC SCIENTIST Facility:A Start: 05-04-2023 End: 05-04-2023 Patient encounter procedure BRITTNEY GARNER [employer]-QC SCIENTIST [facility] Start: 04-26-2023 End: 04-26-[address] Cece Branch Work Phone: [facility] Work Phone: Start: 04-13-2023 ambulatory BRITTNEY GARNER [employer]-QC SCIENTIST Facility:B Start: 04-08-2023 End: 04-13-2023 ambulatory BRITTNEY GARNER [employer]ER-QC SCIENTIST Facility:A Start: 04-02-2023 End: 04-03-[address] KARRI MENDIOLA MD Facility:A Start: 03-31-2023 End: 04-01-[address] KARRI MENDIOLA MD Facility:B Start: 03-31-2023 End: 03-31-[address] KARRI MENDIOLA MD [facility] Start: 03-12-2023 End: 03-13-[address] KARRI MENDIOLA MD Facility:A Start: 03-12-2023 End: 03-12-[address] KARRI MENDIOLA MD [facility] Start: 03-08-2023 End: 03-13-2023 ambulatory BRITTNEY GARNER [facility] Facility:A Start: 03-07-2023 End: 03-08-[address] KARRI MENDIOLA MD Facility:A Start: 03-07-2023 End: 03-08-[address] KARRI MENDIOLA MD [facility] Start: 02-27-2023 End: 02-28-[address] KARRI MENDIOLA MD Facility:A Start: 02-19-2023 End: 02-20-[address] KARRI MENDIOLA MD Facility:A Start: 02-19-2023 End: 02-19-[address] KARRI MENDIOLA MD [facility] Start: 02-10-2023 End: 02-10-[address] KARRI MENDIOLA MD Facility:A Start: 02-10-2023 End: 02-10-[address] KARRI MENDIOLA MD [facility] Start: 02-01-2023 End: 02-06-2023 ambulatory ZARA LINGJOSSUE WASHER AND CRUSHER TENDER-QC SCIENTIST Facility:A Start: 02-01-2023 End: 02-02-[address] CECE BRANCH MD Facility:A Start: 02-01-2023 End: 02-01-[address] KARRI MENDIOLA MD [facility] Start: 02-01-2023 End: 02-01-2023 Patient encounter procedure ZARA DE LA PAZQC SCIENTIST [facility] Start: 11-09-2022 End: 11-10-[address] KARRI MENDIOLA MD Facility:A Start: 09-07-2022 End: 09-07-[address] Derrell Richards Work Phone: [facility] Work Phone: Start: 09-07-2022 End: 09-07-[address] Derrell Richards [facility] Start: 08-24-2022 End: 08-24-[address] Derrell Richards Work Phone: [facility] Work Phone: Start: 08-24-2022 End: 08-24-[address] Derrell Richards [facility] Start: 08-20-2022 End: 08-20-[address] Derrell Richards [facility] Start: 08-20-2022 End: 08-20-[address] Derrell Richards Work Phone: [facility] Start: 03-02-2022 End: 03-02-[address] KARRI MENDIOLA MD [facility] Start: 02-21-2022 End: 02-21-[address] KARRI MENDIOLA MD [facility] Start: 11-21-2021 End: 11-21-[address] KARRI MENDIOLA MD [facility] Start: 11-13-2021 End: 11-13-[address] KARRI MENDIOLA MD [facility] Start: 11-03-2021 End: 11-03-[address] KARRI MENDIOLA MD [facility] Start: 09-22-2021 End: 09-22-2021 Subsequent hospital visit by physician Mri 1 [facility] (I-Stat/Lg Bore/3t) RADIO MRI [facility] Comment on above: Elevated prostate sp ecific antigen (PSA) [R97.20] Start: 07-21-2021 End: 07-21-2021 Patient encounter procedure MISSY CONNER WASHER AND CRUSHER TENDER-QC SCIENTIST [facility] Start: 07-15-2021 End: 07-15-[address] KARRI MENDIOLA MD [facility] Procedures Date Procedure Procedure Detail Performing Clinician Start: 06-23-2023 MRI of pelvis with contrast Dr. Cece fermin Work Phone: Start: 06-16-2023 Space OAR (Not Applicable) Dr. Cece Terrell Work Phone: Start: 03-15-2023 Basal cell carcinoma (morphologic abnormality) BRITTNEY GARNER WASHER AND CRUSHER TENDER-QC SCIENTIST Start: 09-07-2022 [address] emptying study Dr. Derrell Richards Work Phone: Start: 11-13-2021 MRI-US fusion guided transperineal biopsy of prostate DR KARRI MENDIOLA MD Start: 01-22-[address] KARRI MENDIOLA MD Comment on above: Umbilical Start: 1996 Jaw region structure (body structure) DR KARRI MENDIOLA MD Comment on above: removal of hardware Colonoscopy DR KARRI MENDIOLA MD Esophagogastroduodenoscopy Rafia MENDIOLA MD Extraction of wisdom tooth Rafia MENDIOLA MD Giardia Antigen (FRED) Dr. Ra sixto Richards Work Phone: Hernia repair DR KARRI MENDIOLA MD Comment on above: Inguinal bilateral History of radiation therapy His tory of radiation therapy 3625cGy prostate SBRT Phylicia by Dr. 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 Derrell Richards Work Phone: Prostate biopsy sample (specimen) DR KARRI MENDIOLA MD Tonsillectomy DR KARRI MENDIOLA MD Vasectomy DR KARRI MENDIOLA MD Plan of Treatment Date Care Activity Detail Author Start: 06-16-2023 Anes integ extremities ant trunk & perineum nos ANESTH SKIN EXT/PER/ATRUNK [facility] Start: 06-16-2023 Plmt interstitial dev radiat tx prostate 1/mult PLACE RT DEVICE/MARKER PROS [facility] Start: 06-16-2023 Ambulation without limitation [facility] Start: 06-16-2023 Following clinical pathway protocol [facility] Start: 06-16-2023 Medical regimen orders management [facility] Start: 06-16-2023 Medication education [facility] Start: 06-16-2023 Patient discharge [facility] Start: 06-16-2023 Taking patient vital signs [facility] Start: 06-16-2023 [facility] Start: 04-26-2023 Patient referral [facility] Work Phone: Start: 2021 ADVANCE DIRECTIVE DISCUSSION ADVANCE DIRECTIVE DISCUSSION [facility] Start: 2017 PNEUMOVAX AGE 65 AND OVER WITH 5YR LOOKBACK (#1) PNEUMOVAX AGE 65 AND OVER WITH 5YR LOOKBACK (#1) [facility] Start: 2002 SHINGRIX VACCINE (1 of 2) SHINGRIX VACCINE (1 of 2) [facility] Start: 1997 COLOGUARD (FIT-DNA) COLOGUARD (FIT-DNA) [facility] Start: 1997 Colonoscopy COLONOSCOPY [facility] Start: 1997 COLORECTAL CANCER SCREENING COLORECTAL CANCER SCREENING [facility] Start: [address] COLONOGRAPHY [facility] Start: 1997 DIABETES SCREEN DIABETES SCREEN [facility] Start: 1997 FECAL OCCULT BLOOD FECAL OCCULT BLOOD [facility] Start: 1997 SIGMOIDOSCOPY SIGMOIDOSCOPY [facility] Start: 1987 LIPID SCREEN LIPID SCREEN [facility] Start: 1971 Urine microalbumin profile DTAP,TDAP,TD (1 - Tdap) [facility] Start: 1970 HEPATITIS C SCREENING HEPATITIS C SCREENING [facility] Start: 1964 Adult depression screening assessment DEPRESSION SCREENING [facility] Patient referral [facility] Work Phone: Radionuclide gastric emptying study [facility] Immunizations Immunization Date Immunization Notes Care Provider Fa cility 09-06-2021 SARS-CoV-2 (COVID-19 ) mRNA-[address] KARRI MENDIOLA MD [facility] 03-14-2021 SARS-CoV-2 (COVID-19 ) mRNA-[address] KARRI MENDIOLA MD [facility] 02-24-2021 influenza virus vacc ine, unspecified formulation DR KARRI MENDIOLA MD [facility] 08-01-2020 SARS-CoV-2 (COVID-19 ) mRNA-[address] KARRI MENDIOLA MD [facility] 07-04-2020 SARS-CoV-2 (COVID-19 ) mRNA-[address] KARRI MENDIOLA MD [facility] 03-10-2019 influenza virus vacc ine, unspecified formulation DR KARRI MENDIOLA MD [facility] 11-21-2018 pneumococcal polysaccharide vaccine, [address] KARRI MENDIOLA MD [facility] 03-14-2018 influenza virus vacc ine, unspecified formulation DR KARRI MENDIOLA MD [facility] 02-21-2018 influenza virus vacc ine, unspecified formulation DR KARRI MENDIOLA MD [facility] 10-25-2017 pneumococcal conjuga te vaccine, [address] KARRI MENDIOLA MD [facility] 04-29-2016 influenza virus vacc ine, unspecified formulation DR KARRI MENDIOLA MD [facility] Payers Date Payer Category Payer Private Health Insurance [id number] 2024 Medicare [id number] 2023 Self-pay 2022 Unknown [id number] 2022 Unknown [id number] 2021 Unknown MMO MMO MEDICARE SUPPLEMENT [id number] 2021-Present [phone] [address] [place] [address] Indemnity [id number] 2017 Medicare MEDICARE MEDICAR E A AND B [id number] 2017-Present [phone] [address] [address] [place] [address] Medicare [id number]. 7.3.311472.315 2017 Medicare [id number] 1952 Unknown [id number] 2.16.840.1.958786.3.579.2. 1952 Unknown [id number] 2.16.840.1.295097.3.579.2. 1952 Unknown [id number] 2.16.840.1.467686.3.579.2. 1952 Unknown [id number] 2.16.840.1.518807.3.579.2. 1952 Unknown [id number] 2.16.840.1.744426.3.579.2. 1952 Unknown [id number] 2.16.840.1.500568.3.579.2. 1952 Unknown [id number] 2.16.840.1.125453.3.579.2. 1952 Unknown [id number] 2.16.840.1.691017.3.579.2. 1952 Unknown [id number] 2.16.840.1.774637.3.579.2. 627 1952 Unknown [id number] 2.16.840.1.349363.3.579.2. 1952 Unknown [id number] 2.16.840.1.857888.3.579.2. 1952 Unknown [id number] 2.16.840.1.354066.3.579.2. 1952 Unknown [id number] 2.16.840.1.887525.3.579.2. 1952 Unknown [id number] 2.16.840.1.658185.3.579.2. 1952 Unknown [id number] 2.16.840.1.670412.3.579.2. 1952 Unknown [id number] 2.16.840.1.696007.3.579.2. 1952 Unknown [id number] 2.16.840.1.031600.3.579.2. 1952 Unknown [id number] 2.16.840.1.320106.3.579.2. 1952 Unknown [id number] 2.16.840.1.519050.3.579.2. 1952 Unknown [id number] 2.16.840.1.573770.3.579.2. 1952 Unknown [id number] 2.16.840.1.701884.3.579.2. 1952 Unknown [id number] 2.16.840.1.038499.3.579.2. 65 1952 Unknown [id number] 2.16.840.1.910630.3.579.2. 1952 Unknown [id number] 2.16.840.1.309794.3.579.2. 651 1952 Unknown [id number] 2.16.840.1.988961.3.579.2. 627 1952 Unknown [id number] 2.16.840.1.835617.3.579.2. 627 1952 Unknown [id number] 2.16.840.1.794094.3.579.2. 627 1952 Unknown [id number] 2.16.840.1.937003.3.579.2. 627 1952 Unknown [id number] 2.16.840.1.546833.3.579.2. 627 Unknown [facility] [id number] Unknown [id number] 2.16.840.1.774420.3.579.2. 462 Unknown [id number] 2.16.840.1.426019.3.579.2. 462 Unknown [id number] 2.16.840.1.998928.3.579.2. 462 Unknown [id number] 2.16.840.1.683852.3.579.2. 462 Unknown [id number] 2.16.840.1.925499.3.579.2. 462 Unknown [id number] 2.16.840.1.578069.3.579.2. 462 Unknown [id number] 2.16.840.1.190040.3.579.2. 462 Social History Date Type Detail Facility Start: 11-20-2014 End: 09-30-2020 Never smoked tobacco (finding) [facility] Sex Assigned At [facility] Start: 11-20-2014 Alcohol intake Current drinke r of alcohol (finding) [facility] Start: 11-20-2014 History SDOH Alcohol Comment One beer per month/Social [facility] Start: 1950 Sex Assigned At Not on file C [facility] Start: 09-12-2021 End: 09-22-2021 Exposure to SARS-CoV-2 (event) Not sure [facility] Start: 08-20-2022 End: 06-14-2023 Tobacco smoking status NHIS Unknown if ever smoked [facility] Start: 1950 Sex Assigned At Male [facility] Start: 02-18-2018 Sex Male (finding) [facility] Medical Equipment Procedure Code Equipment Code Equipment Origin al Text Equipment Identifier Dates MARKERS, FIDUCIAL GOLD FDA St art: 06-16-2023 Radiotherapy protection spacer [id number] FDA Start: 06-16-2023 Goals Date Patient Goal Desired Activity /State Functional Status Date Assessment Result Facility 02-10-2023 Functional Status Awake, Up ad basilia, Up to bathroom [facility] 02-10-2023 Functional Status ice chips and sips take n [facility] 02-10-2023 [facility] Functional Status Sensory Deficits None A [facility] 11-13-2021 Functional Status Bathroom privileges [facility] 11-13-2021 Functional Status [facility] 11-13-2021 Functional Status Maintained [facility] 11-03-2021 Functional Status Sensory Deficits None A [facility] Mental Status Date Assessment Result Facility 06-16-2023 Cognitive function Voice/Name [facility] Work Phone: 06-16-2023 Cognitive function Patient Orien tation Person;Place;Time [facility] Work Phone: 02-10-2023 Mental Status Orientation Oriented x 4 [facility] 02-10-2023 Mental Status [facility] 02-10-2023 Mental Status [facility] 11-13-2021 Mental Status Orientation Oriented x 4 [facility] 11-13-2021 Mental Status [facility] 11-13-2021 Mental Status Orientation Asse ssment Oriented x 4 [facility] Clinical Notes 12-31-2020 to 06-16-2023 LaboratoryRadiologyJosezev Schumacher RT(R) - 09/22/2021 9:00 AM EDTLaboratory Note Date & Type Note Facility 06-16-2023 Procedure note [facility] 04-10-2023 Note . MICRO - Microbiology PROCEDURE: [...] Locations *1: This test was performed at: [facility], [address] [place] [address], [facility] , [facility] ([place]) 03-31-2023 Note ORIGINAL EXAMINATION: CT OF THE [...] 03/31/2023 6:08:39 PM Ordering Provider: KARRI MENDIOLA [facility] 03-12-2023 Note ORIGINAL EXAMINATION: WHOLE [...] 03/12/2023 4:32:48 PM Ordering Provider: KARRI MENDIOLA [facility] 03-10-2023 Note . MICRO - Microbiology [...] Locations *1: This test was performed at: [facility], [address] [place] [address], [facility] , [facility] [place] 02-19-2023 Evaluation + Plan note Future Scheduled TestsTestosterone Level Total 02/19/23NM Bone Imaging Whole Body 02/19/23CT Abdomen and Pelvis w/o contrast 02/19/23 [facility] 02-10-2023 Anesthesiology Consult note Patient: AMINATA [...] MALCOM BERGER MD on 02/10/2023 07:46 PM [facility] 02-10-2023 Hospital Discharge instructions Patient Education 02/10/2023 17:43:15 1-[facility] Discharge Instructions Template (02/2018) (CUSTOM) [facility] SAME DAY SURGERY DISCHARGE INSTRUCTIONS PLEASE FOLLOW [...] us better serve our patients. Form: 1522 [id number]) R: 08/3002/10/2023 17:42:23 1-[facility] Prostate Biopsy [facility] Instructions(03/2022) (CUSTOM) DESCRIPTION OF PROSTATE ULTRASOUND AND [...] after midnight. 2.Medications will be reviewed by [facility] pre-test clinic and you will be notified [...] Up Care 11/10/2022 09:38:33 With:KARRI MENDIOLA MD, [facility], Urology Service Address: [address] [place], [place] [address]- When: Unknown [facility] 02-10-2023 Summary of episode note Discharge Instructions Thank you for allowing [facility] to assist you with your healthcare needs. The following is important discharge information regarding your hospital visit. Your Care Team CECE BRANCH MD Your Diagnosis Prostate cancer; Thompson 6 (GG1) cT1c dx October 2021; iPSA 5.45; 32mL prostate; Oncotype GPS 24 What to do next Instructions From Your Doctor Expect blood in the urine and blood in the semen. If unable to urinate, please call the [facility] office and/or go to the main hospital emergency department. Scheduled Follow-Up Appointments Appointment Type When With Where Contact InformationURO OV Talk 02/19/2023 03:10 PM EDT KARRI MENDIOLA [facility] Follow Up Appointments Follow Up with KARRI MENDIOLA MD, [facility], Urology Service When Where: [address] [facility] [facility] [address] [place] [address]- The Following Activity and Diet Have Been [...] medication providers or retail pharmacies. Education Materials [facility] SAME DAY SURGERY DISCHARGE INSTRUCTIONS PLEASE FOLLOW [...] us better serve our patients. Form: 1522 ([id number]) R: 08/30 DESCRIPTION OF PROSTATE ULTRASOUND AND [...] midnight. 2. Medications will be reviewed by [facility] pre-test clinic and you will be notified [...] to receive it can visit one of [facility] vaccine clinics. There are many vaccine clinic locations within the [facility]. For locations and available times, please visit [email or web address].[place].gov/. It is important to note that some COVID mobile vaccine clinics are held outdoors and may be canceled in rainy or stormy conditions. To learn more about pediatric vaccinations (ages 5-11), we invite you to visit the [facility] webpage. [email or web address] To learn more about the COVID-19 vaccine, we invite you to visit the CDC website for a list of frequently asked questions.https://www.cdc.gov/cor onavirus/2019-ncov/vaccines/faq.h tml [facility] Patient Portal Access Instructions: Stay connected with your healthcare team and access your personal medical information anytime with the [employer] Patient Portal. Please follow the directions below to create your [employer] account: 1.Access the email account you provided upon registration to the hospital/physician office.2.Look for an invitation email from [facility].3.Open the email and access the invitation link: Accept Invitation to [facility].4.Fill in the required wilson to create your account. To access your account, visit [email or web address]. Click the blue button labeled Access Patient [...] you will allow to register on the [facility] Patient Portal for access to your information. You can also access the [facility] Patient Portal on the [facility] shala. Simply click on Patient Portal and then log into your account. If you would like to receive a full copy of your medical records, please contact the [facility] Medical Records Department by calling [phone], Wednesday through Wednesday between 8 a.m. and [...] Call your local pharmacy or go to [email or web address] to find one close to you.3.Make use of household items: Use cat litter or old coffee grounds to dispose medications if other options are not available. Mix your drugs with these household products, seal them in an airtight container and throw it into the garbage. Call [facility]: [phone] to be sure your drugs can be [...] Materials 1-SDS Discharge Instructions Template (02/2018) (CUSTOM) 1-[facility] Prostate Biopsy [facility] Hospital Instructions(03/2022) (CUSTOM) Medication Leaflets My discharge plan and instructions have been reviewed and explained to me and I,AMINATA GAY understand my current condition and have read and understand these discharge instructions. I have received a written copy of the plan/instructions. If I have questions, I am aware that I should contact my doctor. Patient/Biological Science Technician Signature: Date/Time: Relationship to Patient: ____ Witness Name/Signature: Date/Time: [facility] 02-10-2023 Anesthesiology Consult note Patient: AMINATA [...] murmur, intensity grade I/ / SNOMED CT 84657824 / Confirmed Carotid bruit / SNOMED CT 2969854562 / Confirmed GERD - Gastro-esophageal reflux disease / SNOMED CT 4862872716 / Confirmed HYPERTENSION / SNOMED CT 8492390744 / Confirmed Hypertriglyceridemia / SNOMED CT 888830852 / Confirmed Insomnia / SNOMED CT 365956727 / Confirmed Prostate cancer; Thompson 6 (GG1) cT1c dx October 2021; iPSA 5.45; 32mL prostate; Oncotype GPS 24 / SNOMED CT 1681638191 / Confirmed Obesity / SNOMED CT 1363542077 / Confirmed RUPESH - Obstructive sleep apnea / SNOMED CT 7280277988 / Confirmed Panic disorder / SNOMED CT 3661918977 / Confirmed Polyarthropathy / SNOMED CT 89473893 / Confirmed, Active Problems (24) Anxiety Arthritis [...] Histories Past Medical History: Resolved PSA elevation (3146145435): Resolved. UMBILICAL HERNIA WITHOUT MENTION OF OBSTRUCTION OR GANGRENE (6366756127): Resolved. Family History: Cancer Father Aortic valve replacement and aortoplasty Brother Heart disease Grandparent Aortic aneurysm Brother Arthritis Mother Prostate cancer Maternal Uncle Procedure history: MRI-US fusion guided transperineal biopsy of prostate ([id number]) on 11/13/2021 at 71 Years. Hernia repair ([id number]) on 01/22/2021 at 70 Years. Comments: 07/15/2021 15:39 Riddhi Lancaster LPN Umbilical Jaw (9024709) in 1996 at 46 Years. Comments: 11/03/2021 9:47 Kisha Walsh RN removal of hardware Orthognathic surgery (469161866). Comments: 02/01/2023 11:33 CASPER Harrison RECONSTRUCTION 09/30/2020 7:53 Riddhi Mejias LPN jaw malalignment Tonsillectomy (131195731). Hernia repair (43526549). Comments: 09/30/2020 7:54 Riddhi Mejias LPN Inguinal bilateral Vasectomy (32233986). Esophagogastroduodenoscopy (190145307). Colonoscopy (149344514). Extraction of wisdom tooth (270434086). Social History Social & Psychosocial Habits Alcohol [...] Weight Lbs 214.7 lb Weight Method Actual [place] Body Weight 73.00 kg Type of Scale [...] Documentation reviewed: Current records. Assessment and Plan [place] [employer] Anesthesiologists (ASA) physical status classification: Class III. Anesthetic Preoperative Plan Premedication: intravenous. Anesthetic technique: MAC. Induction: intravenously. Postoperative pain management: Per surgeon. Informed consent: signed by patient. Notes: RUPESH, HTN. Digitally Signed by MALCOM BERGER MD on 02/10/2023 04:06 PM [facility] 02-02-2023 Note . MICRO - Microbiology [...] Locations *1: This test was performed at: [facility], [address] [place] [address], [address] , [facility] [place] 11-13-2021 Hospital Discharge instructions Patient Education 11/13/2021 12:49:13 1-SDS Discharge Instructions Template (02/2018)(CUSTOM) [facility] SAME DAY SURGERY DISCHARGE INSTRUCTIONS PLEASE FOLLOW [...] us better serve our patients. Form: 1522 (69879) R: 08/30 Follow Up Care 10/07/2021 15:06:47 With:KARRI MENDIOLA MD, [facility], Urology Service Address: [address] [place] [address] [address] [place] [address] [phone] When: Unknown Comments:Follow-up as scheduled With:KARRI MENDIOLA MD, [facility], Urology Service Address: [address] [place] [address] [address] [place] [id number] When: Unknown [facility] 09-22-2021 Note HNO ID: [id number] Author: KAREN Bedolla) Service: Radiology Author Type: Buyer Tobacco Head Type: Progress Notes Filed: 09/22/2021 9:51 AM [...] DATE: September 22, 2021 TIME: 9:45 AM [facility] 09-22-2021 History of Present illness Narrative Radiology [...] TIME: 9:45 AM documented in this encounter [facility] 12-31-2020 Evaluation + Plan note Future Scheduled TestsProstate Specific Antigen 12/31/20Prostate Specific Antigen 07/09/21 [facility] Discharge summary Note Date/Time June 16, 2023 7:23am [facility] Medical Records Department [address] [place] [address] Instructions for Home/Discharge Instructions 06/16/23 0723 MR#: [id number] Acct: [id number] Name: AMINATA GAY Rep #[id number] : 1950 [id number] From: Eben Peck MD PCP: Dr. Cece Branch MD Status:REG [facility] Discharge Instructions Diet Discharge Diet: No restrictions Activity Discharge Activity: Return to Normal Activity and May Not Drive (while taking narcotic pain medications.) Dressing / Incision Call your doctor if you observe: Fever of 101 or Higher Follow Up Care Please Follow Up With: Eben Peck MD When: Call [phone] for an appointment Test Results: Test results from this visit will be discussed in further detail at your follow-up appointment, if applicable. Discharge Plan Admission Primary Reason for Your Visit: Markers and spacer Attending Provider: Eben Peck Primary Care Provider: Cece Branch Discharge Orders/Prescriptions Prescriptions: Continued omega-3 fatty acids 1,000 mg capsule 1,000 mg PO DAILY metoprolol tartrate 50 mg tablet 50 mg PO BID alprazolam 0.25 mg tablet 0.125 mg PO BID PRN (Reason: anxiety) ascorbic acid (vitamin C) 1,000 mg tablet 1 g PO DAILY losartan 25 mg tablet 25 mg PO DAILY metronidazole 0.75 % gel 1 applic topical BID PRN (Reason: ROSACEA) coenzyme Q10 [Co Q-10] 200 mg capsule 200 mg PO DAILY vitamin B complex [B Complex-Vitamin B12] Tablet 1 tab PO DAILY cholecalciferol (vitamin D3) [Vitamin D3] 125 mcg (5,000 unit) tablet 125 mcg PO DAILY famotidine 20 mg tablet 20 mg PO DAILY PRN (Reason: GERD) ciprofloxacin HCl 500 mg tablet 500 mg PO .COMPLEX Patient Comments: TAKE 1 TABLET BY MOUTH TWICE DAILY DIRECTED BY PREOP INSTRUCTIONS GIVEN Rx Instructions: 500 mg orally PREOP AND POD 1; Referrals / Follow Up: Cece Branch MD [Primary Care Provider] - Eben Peck MD [Med Staff - Active Staff] - Disposition Disposition (needs filled in before D/C Order can be placed): Home, Self Care 06/16/23722<Electronically signed by Eben Peck MD>Eben Peck MD CC: Dr. Cece Branch MD ~ Signed [facility] Work Phone: Evaluation + Plan note Future Appointments Appointment Date:07/21/2021 01:30:00 PM Scheduled Provider: Location:UROLOGY Appointment Type:URO Nurse OV Future Scheduled Tests Laboratory* Prostate Specific Antigen 12/31/20 * Prostate Specific Antigen 07/09/21 [facility] Evaluation + Plan note Future Appointments Appointment Date:11/21/2021 03:00:00 PM Scheduled Provider:KARRI MENDIOLA MD Location:UROLOGY Appointment Type:URO OV Talk Future Scheduled Tests Laboratory* Prostate Specific Antigen 12/31/20 * Prostate Specific Antigen 07/09/21 [facility] Evaluation + Plan note Future Appointments Appointment Date:03/02/2022 01:10:00 PM Scheduled Provider:KARRI MENDIOLA MD Location:UROLOGY Appointment Type:URO OV Future Scheduled Tests Laboratory* Prostate Specific Antigen 12/31/20 * Prostate Specific Antigen 07/09/21 * Prostate Specific Antigen 02/21/22 [facility] BOLD Guidancealuation + Plan note Future Appointments Appointment Date:03/02/2022 01:10:00 PM Scheduled Provider:KARRI MENDIOLA MD Location:UROLOGY Appointment Type:URO OV Future Scheduled Tests Laboratory* Prostate Specific Antigen 07/09/21 [facility] BOLD Guidancealuation + Plan note Future Appointments Appointment Date:08/31/2022 10:00:00 AM Scheduled Provider:KARRI MENDIOLA MD Location:UROLOGY Appointment Type:URO OV Future Scheduled Tests Laboratory* Prostate Specific Antigen 07/09/21 * Prostate Specific Antigen 08/31/22 [facility] BOLD Guidancealuation + Plan note Future Appointments Appointment Date:02/10/2023 12:05:00 PM Scheduled Provider: Location:Main OR Appointment Type:Surgery - [facility] Appointment Date:02/19/2023 03:10:00 PM Scheduled Provider:KARRI MENDIOLA MD Location:UROLOGY Appointment Type:URO OV Talk [facility] evaluation + Plan note Future Appointments Appointment Date:02/19/2023 03:10:00 PM Scheduled Provider:KARRI MENDIOLA MD Location:UROLOGY Appointment Type:URO OV Talk [facility] evaluation + Plan note Future Appointments Appointment Date:03/12/2023 09:00:00 AM Scheduled Provider: Location:XRAY Appointment Type:yyNM Inj Bone Imaging Whole Body1 Appointment Date:03/12/2023 12:00:00 PM Scheduled Provider: Location:XRAY Appointment Type:yyNM Bone Imaging Whole Body Scan Appointment Date:04/02/2023 03:10:00 PM Scheduled Provider:KARRI MENDIOLA MD Location:UROLOGY Appointment Type:URO OV Talk 20 min Future Scheduled Tests Radiology* NM Bone Imaging Whole Body 03/12/23 [facility] evaluation + Plan note Future Appointments Appointment Date:03/12/2023 09:00:00 AM Scheduled Provider: Location:XRAY Appointment Type:yyNM Inj Bone Imaging Whole Body1 Appointment Date:03/12/2023 12:00:00 PM Scheduled Provider: Location:XRAY Appointment Type:yyNM Bone Imaging Whole Body Scan Appointment Date:04/02/2023 03:10:00 PM Scheduled Provider:KARRI MENDIOLA MD Location:UROLOGY Appointment Type:URO OV Talk 20 min Future Scheduled Tests Laboratory* Urine Culture 03/08/23 Radiology* NM Bone Imaging Whole Body 03/12/23 [facility] BOLD Guidancealuation + Plan note Future Appointments Appointment Date:04/02/2023 03:10:00 PM Scheduled Provider:KARRI MENDIOLA MD Location:UROLOGY Appointment Type:URO OV Talk 20 min Future Scheduled Tests Laboratory* Urine Culture 03/08/23 [facility] BOLD Guidancealuation + Plan note Future Appointments Appointment Date:09/27/2023 09:30:00 AM Scheduled Provider:KARRI MENDIOLA MD Location:UROLOGY Appointment Type:URO OV Future Scheduled Tests Laboratory* Prostate Specific Antigen 10/01/23 Radiology* US Scrotum Contents 04/20/23 [facility] evaluation + Plan note Future Appointments Appointment Date:04/03/2024 09:30:00 AM Scheduled Provider:KARRI MENDIOLA MD Location:UROLOGY Appointment Type:URO OV [facility] evaluation + Plan note Future Appointments Appointment Date:10/02/2024 09:50:00 AM Scheduled Provider:KARRI MENDIOLA MD Location:UROLOGY Appointment Type:URO OV Future Scheduled Tests Laboratory* Prostate Specific Antigen 10/01/24 [facility] BOLD Guidancealuation + Plan note Future Appointments Appointment Date:10/02/2024 09:50:00 AM Scheduled Provider:KARRI MENDIOLA MD Location:UROLOGY Appointment Type:URO OV [facility] BOLD Guidancealuation + Plan note Future Appointments Appointment Date:04/02/2025 09:40:00 AM Scheduled Provider:KARRI MENDIOLA MD Location:UROLOGY Appointment Type:URO OV Future Scheduled Tests Laboratory* Prostate Specific Antigen 04/04/25 [facility] Evaluation note* Diagnosis Onset Date Resolution Status Change in stool chronic GERD (gastroesophageal reflux disease) chronic [facility] Work Phone: Evaluation note* Diagnosis Onset Date Resolution Status [id number] acute [facility] Work Phone: History and physical note Author Eben Peck [facility] June 16, 2023 7:21am Note Date/Time June 16, 2023 7 :21am [facility] Medical Records Department [address] [place] [address] History & Physical Exam 06/16/23 0721 MR#: [id number] Acct: [id number] Name: AMINATA GAY Rep #:[id number] : 1950 73 From: Eben Peck MD PCP: Dr. Cece Branch MD Status:[facility] Location: [place] [address] HPI - General General Date of Service: 06/16/23 HPI Narrative AMINATA GAY, is a 73 M who presents for placement of spacer and also markers for prostate cancer he plans to have radiation therapy [facility] Medical History (Updated 06/14/23 @ 10:46 by Peggy Lawson) Alcohol use Anxiety Arthritis Basal cell carcinoma (BCC) Blood type O- Cardiac murmur CPAP (continuous positive airway pressure) dependence Elevated PSA Excessive bleeding Fatty liver Gastric reflux HLD (hyperlipidemia) HTN (hypertension) Low HDL (under 40) Migraine with visual aura Non-smoker Obesity Occlusion and stenosis of bilateral carotid arteries RUPESH (obstructive sleep apnea) Palpitations PONV (postoperative nausea and vomiting) Prostate cancer Pure hyperglyceridemia Seasonal affective disorder Umbilical hernia Wears glasses Home Medications metoprolol tartrate 50 mg tablet 50 mg PO BID 06/08/22 [History Last Taken 06/16/23] omega-3 fatty acids 1,000 mg capsule 1,000 mg PO DAILY 06/08/22 [History Last Taken Unknown] alprazolam 0.25 mg tablet 0.125 mg PO BID PRN anxiety 04/06/23 [History Last Taken Unknown] ascorbic acid (vitamin C) 1,000 mg tablet 1 g PO DAILY 04/06/23 [History Last Taken Unknown] coenzyme Q10 200 mg capsule (Co Q-10) 200 mg PO DAILY 04/06/23 [History Last Taken Unknown] losartan 25 mg tablet 25 mg PO DAILY 04/06/23 [History Last Taken Unknown] metronidazole 0.75 % topical gel 1 applic topical BID PRN ROSACEA 04/06/23 [History Last Taken Unknown] vitamin B complex (B Complex-Vitamin B12 tablet) 1 tab PO DAILY 04/06/23 [History Last Taken Unknown] cholecalciferol (vitamin D3) 125 mcg (5,000 unit) tablet (Vitamin D3) 125 mcg PODAILY 06/14/23 [History Last Taken Unknown] ciprofloxacin HCl 500 mg tablet 500 mg PO .COMPLEX 06/14/23 [History Last Taken Unknown] famotidine 20 mg tablet 20 mg PO DAILY PRN GERD 06/14/23 [History Last Taken Unknown] Allergy/AdvReac Type Severity Reaction Status Date / Time Sulfa (Sulfonamide Allergy Intermediate Hives Verified 06/14/23 10:24 Antibiotics) chlorhexidine Allergy Rash Verified 06/14/23 10:24 Family History Father Lung cancer Brother Aortic aneurysm Uncle Prostate cancer maternal Other Heart disease Surgical History (Updated 06/14/23 @ 10:29 by Peggy Lawson) H/O inguinal hernia repair H/O prostate biopsy H/O umbilical hernia repair History of colonoscopy History of esophagogastroduodenoscopy History of hernia repair History of mandibular surgery History of tonsillectomy History of vasectomy History of wisdom tooth extraction Social History Smoking Status: Never smoker alcohol intake: current alcohol intake frequency: holidays/special occasions only substance use type: does not use Vital Signs Vital Signs Vital Signs: 06/16/23 06:42 06/16/23 06:46 Temperature 97.9 F Temperature Source Temporal Pulse Rate 72 Respiratory Rate 16 Respiratory Pattern Normal Blood Pressure 151/77 H Blood Pressure Mean 101 Blood Pressure Source Monitor Blood Pressure Position Sitting Blood Pressure Location Right Arm Pulse Ox 97 Oxygen Delivery Method Room Air Weight Weight: 105 kg Body Mass Index (BMI) 34.2 06/16/23 0721 <Electronically signed by Eben Peck MD> Cosigner Signature (if applicable): CC: Dr. Cece Branch MD; Dr. Eben Peck MD~ Signed [facility] Work Phone: Hospital course Narrative No data available for this section [facility] Hospital Discharge instructions No data available for this section [facility] Hospital Discharge instructions Additional Instructions [facility] Work Phone: Progress note No data available for this section [facility] Summary Purpose Family History No Family History Records Found Relationship Condition Age at Onset Recorded Date/T malik father Malignant neoplasm of lung Unknown Relationship Condition Age at Onset Recorded Date/T malik Not Specified Cardiac disease Unknown father Malignant neoplasm of lung Unknown brother Aortic aneurysm Unknown uncle Malignant neoplasm of prostate Unknown Advance Directives No Advanced Directives Records Found Advance Directive Response Recorded Date/ Time Living Will Yes June 14 10:30am Power of Family Physician No June 14, 2023 10:30am Chief Complaint and Reason for Visit Chief Complaint Consult INT LABSPEC Reason for Visit Change in stool GERD (gastroesophageal reflux disease) Chief Complaint Consult INT LABSPEC GASTROPARESIS Reason for Visit Change in stool GERD (gastroesophageal reflux disease) Chief Complaint CONSULT - PROSTATE Space OAR gel and Gold Markers placement Reason for Visit [id number] Chief Complaint CONSULT - PROSTATE Space OAR gel and Gold Markers placement . PROSTATE CA Reason for Visit [id number] Additional Source Comments (unrecognized sect ion and content) No Status Records FoundNo Status Records FoundNo Status Records FoundNo Status Records FoundNo Status Records FoundNo Status Records FoundNo Status Records Found INFORMATION SOURCE (unrecogn ized section and content) DATE CREATED AUTHOR 02/08/2020 [facility] DATE CREATED AUTHOR AUTHOR'S ORGANIZ ATION 09/26/2021 [facility] DATE CREATED AUTHOR AUTHOR'S ORGANIZ ATION 10/20/2023 [facility] ([place]) DATE CREATED AUTHOR AUTHOR'S ORGANIZ ATION 07/11/2024 [facility] DATE CREATED AUTHOR AUTHOR'S ORGANIZ ATION 10/18/[address] [facility] DATE CREATED AUTHOR AUTHOR'S ORGANIZ ATION 10/20/2024 [facility] DATE CREATED AUTHOR AUTHOR'S ORGANIZ ATION 12/01/2024 [facility] Source Comments (unrecognize d section and content) In the event this informatio n is protected by the Federal Confidentiality of Alcohol and Drug Abuse Patient Records regulations: The Federal rules restrict any use of the information to criminally investigate or prosecute any alcohol or drug abuse patient.[facility] Care Teams (unrecognized sec tion and content) Telephone Mechanic Relationship Specialty Start Date End Date Cece Branch MD PCP - General Internal Medicine 11/20/14 Team Status: Active Member Role Status Dates Out of Town Doctor Family Provider Active Dr. Cece Branch MD Primary Care Provider Active Team Status: Inactive Member Role Status Dates Dr. Derrell Richards DO Attending Provider Active Team Status: Inactive Member Role Status Dates Dr. Cece Branch MD Primary Care Provider Active Dr. Derrell Richards DO Attending Provider, Referring Provider Active Team Status: Inactive Member Role Status Dates Dr. Silviano Jones DO Attending Provider Active Dr. Cece Branch MD Primary Care Provider Active Team Status: Inactive Member Role Status Dates Dr. Cece Branch MD Primary Care Provider Active Dr. Eben Peck MD Attending Provider, Referr ing Provider Active Team Status: Active Member Role Status Dates Dr. Cece Branch MD Primary Care Provider Active Dr. Silviano Jones DO Attending Provider Active Team Status: Active Member Role Status Dates Dr. Cece Branch MD Primary Care Provider Active Dr. Silviano Jones DO Attending Provider, Referring P rovider Active Team Status: Inactive Member Role Status Dates Dr. Cece Branch MD Primary Care Provider Active Dr. Silviano Jones DO Attending Provider, Referring P rovider Active Care Team (unrecognized sect ion and content) Personnel Name: CECE BRANCH MD Address: Address: [address] [place] [address]- Care Team Personnel Name: CECE BRANCH MD [facility] Service: Internal Medicine Member Role: Primary Care Physician Address: Address: [address] [place] [address] Care Team Related Persons Name: LUKE GAY Name: DEEPAK GAY Name: CAROLINE GAY Care Team Personnel Name: CECE BRANCH MD [facility] Service: Internal Medicine Member Role: Primary Care Physician Address: Address: [address] [place] [address] Care Team Related Persons Name: LUKE GAY Name: DEEPAK GAY Name: CAROLINE GAY Care Team Personnel Name: CECE BRANCH MD [facility] Service: Internal Medicine Member Role: Primary Care Physician Address: Address: [address] [place] [address] Care Team Related Persons Name: LUKE GAY Name: DEEPAK GAY Name: CAROLINE GAY Goals (unrecognized section and content) Goals may be documented in a n alternate section FOR RECORDS PERTAINING TO PATIENTS WHO ARE [...] BE BASED ON THE PRIMARY CLINICAL RECORDS. [facility]. provides no warranty or guarantee of the accuracy or completeness of information in this document.
== END | disposition home or self-care (01) ==
LOC: LAB 09:31
PROVIDERS: PCP Nurse Practitioner Acute Care; Referring Provider Student in an Organized Health Care Education/Training Program; Visit Provider Student in an Organized Health Care Education/Training Program
DX: C61 Malignant neoplasm of prostate (principal)
CPT/HCPCS: 36415; 84153